=== PATIENT | female | born 2000 | race Two or more races ===

== ENCOUNTER → 2019-12-06 09:04 | Outpatient (BNVA) | payer BC, SELFPAY | PROVIDERS: PCP Physician Assistant; Referring Provider Physician Assistant; Visit Provider Obstetrics & Gynecology | DX: Z13.89 Encounter for screening for other disorder (principal) ==

== ENCOUNTER 2019-12-31 19:24 | Emergency (ER) | payer BC, SELFPAY ==
[2019-12-31 19:25] VITALS: BP 134/77; PULSE 95; RESP 16; TEMP 37.7; O2SAT 100; BMI 25.0
[2019-12-31 20:55] VITALS: BP 119/75; PULSE 86; RESP 18; TEMP 36.9; O2SAT 98
--- NOTE | 2019-12-31 20:59 | PC.NURSE ---
patient states that since falling a week ago she has had increased lt lower back and lt knee pain, she has tried otc medications without relief as well as a heating pad so she decided to come back to the ed to be seen.
--- NOTE | 2019-12-31 21:25 | ED_ITS ---
HPI - Back Pain/Injury General Chief Complaint: Back Pain/Injury Stated Complaint: Fall Time Seen by Provider: 12/31/19 21:01 Source: patient Mode of arrival: ambulatory Limitations: no limitations History of Present Illness HPI Narrative: Patient comes to emergency room complaining of left sided back pain in the lumbar region. Patient states about a week ago she fell down the stairs in the dark, mechanical fall. Patient states she has been able to walk, no urinary or fecal incontinence or retention. Patient states every time she moves her back, no midline tenderness. Related Data Previous Rx's Medication Instructions Recorded cyclobenzaprine 5 mg PO TID PRN #10 tab 12/31/19 Allergies Allergy/AdvReac Type Severity Reaction Status Date / Time aspirin [ASPIRIN] Allergy Unknown SWELLING, Unverified 12/06/19 09:05 anaphylaxis penicillin G Allergy Unknown Unknown Verified 12/06/19 09:05 Clindamycin Allergy Unknown Unknown Uncoded 12/06/19 09:05 SEAFOOD Allergy Unknown SWELLING Uncoded 12/06/19 09:05 Review of Systems Review of Systems: Constitutional : No Weight loss, No Fever, No Chills, No Night Sweats, No Fatigue, No Malaise ENT/Mouth : No Hearing loss, No Ear Pain, No Nasal Congestion, No Sinus Pain, No Hoarseness, No sore throat, No Rhinorrhea, No Swallowing Difficulty Eyes: No Eye Pain, No Swelling, No Redness, No Foreign Body, No Discharge, No Vision Changes Cardiovascular : No Chest Pain, No SOB, No Dyspnea on Exertion, No Orthopnea, No Edema, No Palpitations Respiratory : No Cough, No Sputum, No Wheezing, No Smoke Exposure, No Dyspnea Gastrointestinal : No Nausea, No Vomiting, No Diarrhea, No Constipation, No abdominal Pain, No Hematochezia, No Melena Genitourinary : no irregular bleeding, No Dysuria, No Urinary Frequency, No Hematuria, No Urinary Incontinence, No Urgency, No Flank Pain, No Urinary Flow Changes, No Hesitancy Musculoskeletal : No joint pain, No Myalgias, No Joint Swelling, complaining of back pain, lung by region and left side of the back. Skin : No Skin Lesions, No rash Neuro : No Weakness, No Numbness, No Paresthesias, No Loss of Consciousness, No Dizziness, No Headache Psych : No Anxiety/Panic, No Depression, No SI/HI/AH/VH, No Social Issues, Heme/Lymph: No Bruising, No Bleeding,No Lymphadenopathy Endocrine : No Polyuria, No Polydipsia, No Temperature Intolerance [facility] Past Medical History Medical History Migraine Family History Family History Mother Breast cancer Social History Social History Alcohol intake: never Smoking Status: Never smoker Use of substances other than those prescribed or required for medical reasons: No Advance Directives: No Advance Directives Information Provided: Yes Sexual orientation: Straight/Heterosexual Gender identity: female Physical Exam Vital Signs: Vital Signs: Last Vital Signs Temp 98.4 F 12/31/19 20:55 Pulse 86 12/31/19 20:55 Resp 18 12/31/19 20:55 BP 119/75 12/31/19 20:55 Pulse Ox 98 12/31/19 20:55 Body Mass Index 25.0 Appearance: Alert. Oriented X3. No acute distress. Eyes: Pupils equal, round and reactive to light. ENT: Pharynx normal. Neck: Normal inspection. Neck supple. No lymph nodes noted. No crepitus CVS: Normal heart rate and rhythm. Pulses normal. Normal S1 and S2 Respiratory: No respiratory distress. Breath sounds normal. No Wheezing. No rales Abdomen: Soft and nontender. No rigidity. No distention. good BS x4 Back: No spinal tenderness, pain to flexion and extension on the left side of the back, tender to palpation over the paraspinal muscles on the left side only Skin: Skin warm and dry. Normal skin color. Normal skin turgor. Extremities: No lower extremity edema. No lower extremity edema. No Lacerations. No Rash Neuro: Oriented X 3. No motor deficit. No sensory deficit. Moving all extermities. No slurred speech. Course Course Course Narrative: I discussed the imaging with the patient, no acute fracture, patient does have muscular contusion. Discharge Plan Discharge Clinical Impression: Lower back pain Qualifiers: Chronicity: acute Back pain laterality: left Sciatica presence: without sciatica Qualified Code(s): M54.5 - Low back pain Contusion Qualifiers: Encounter type: initial encounter Contusion area: lower back Qualified Code(s): S30.0XXA - Contusion of lower back and pelvis, initial encounter Patient Disposition: Home, Self-Care Instructions: Contusion in Adults (ED) Additional Instructions: Please follow-up with your primary care physician tomorrow. If you have any worsening or new symptoms, please return to the emergency room or call 911 Prescriptions: New cyclobenzaprine 5 mg tablet 5 mg PO TID PRN (Reason: muscle spasm) Qty: 10 RF: 0
--- NOTE | 2019-12-31 21:34 | XR_ITS ---
EXAMINATION: XR LUMBOSACRAL SPINE CLINICAL INFORMATION: Lumbar pain. Fall one week ago. COMPARISON: None TECHNIQUE: 2 views FINDINGS: The vertebral bodies and posterior elements are normal. The disc spaces are preserved and the vertebral alignment is normal. The paraspinal soft tissues are normal. XR/XR lumbar spine 2-3V IMPRESSION: Unremarkable examination.
[2019-12-31] MEDS: Morphine Sulfate 2 MG/ML CARTRIDGE IM (21:49)
--- NOTE | 2019-12-31 21:51 | PC.NURSE ---
patient medicated for low back and lt leg pain pt states her pain is now 10/10, pt states her father will be giving her a ride home, will continue to [facility].
== END 2019-12-31 23:37 | disposition home or self-care (01) ==
PROVIDERS: Emergency Provider Emergency Medicine; PCP Physician Assistant
DX: S30.0XXA Contusion of lower back and pelvis, initial encounter (principal); M54.5 Low back pain; W10.9XXA Fall (on) (from) unspecified stairs and steps, initial encounter; Y93.9 Activity, unspecified; Y92.9 Unspecified place or not applicable; Y99.9 Unspecified external cause status; Z79.899 Other long term (current) drug therapy
CPT/HCPCS: 72100; 96372; 99284; J2270

== ENCOUNTER 2020-01-11 07:42 | Outpatient (REF) | payer BC, SELFPAY ==
--- NOTE | 2020-01-11 | MR_ITS ---
EXAMINATION: MR BRAIN WITHOUT CONTRAST CLINICAL INFORMATION: Headaches. COMPARISON: None. TECHNIQUE: Multiplanar, multisequence imaging of the brain was performed without contrast. FINDINGS: No diffusion abnormalities are identified to suggest an acute or subacute infarct. The ventricles are normal in size. No mass effect or midline shift is seen. No brain parenchymal signal abnormality is noted. No extra-axial fluid collections are seen. The brainstem and cerebellum are normal. The gradient refocused acquisition demonstrates no pathologic magnetic susceptibility artifact to indicate underlying acute or chronic blood products. The craniovertebral junction, marrow signal, and midline structures are normal. The major intracranial flow voids at the level of the [place] are preserved. The dural venous sinus flow voids are maintained. The mastoid air cells and paranasal sinuses are well aerated. MR/MR head/brain wo con IMPRESSION: Normal MRI of the brain. No acute process.
== END 2020-01-11 07:43 | disposition home or self-care (01) ==
LOC: HO.MRI 07:42
PROVIDERS: Visit Provider Psychiatry & Neurology Neurology
DX: R51.9 Headache, unspecified (principal)
CPT/HCPCS: 70551

== ENCOUNTER → 2020-11-01 09:05 | Outpatient (BNVA) | payer OTHER, SELFPAY | PROVIDERS: PCP Physician Assistant; Visit Provider Obstetrics & Gynecology ==

== ENCOUNTER 2020-11-28 08:54 | Outpatient (REF) | payer OTHER, SELFPAY ==
[2020-11-28 16:24] LABS: CT PCR NOT DETECTED (Not Detect.); NG PCR NOT DETECTED (Not Detect.)
[2020-11-29 09:17] LABS: BV Int Neg Control Negative (Negative); BV Int Pos Control Positive (Positive)
== END 2020-11-28 08:55 | disposition home or self-care (01) ==
LOC: HO.LAB 08:54
PROVIDERS: PCP Physician Assistant; Visit Provider Obstetrics & Gynecology
DX: Z01.411 Encounter for gynecological examination (general) (routine) with abnormal findings (principal); B37.3 Candidiasis of vulva and vagina; Z80.3 Family history of malignant neoplasm of breast
CPT/HCPCS: 87480; 87491; 87510; 87591; 87660

== ENCOUNTER 2020-11-30 07:28 | Outpatient (REF) | payer OTHER, SELFPAY ==
--- NOTE | ~2020-11-30 | MM_ITS ---
EXAMINATION: MM SCREENING DIGITAL BREAST TOMOSYNTHESIS, BILATERAL CLINICAL INFORMATION: Screening. Asymptomatic. Family history breast cancer, mother, age 30. Patient age 20. The lifetime risk of breast cancer based on the Tyrer-Cuzick Model is 33%. COMPARISON: Mammography: 09/23/2019 (baseline) TECHNIQUE: Digital breast tomosynthesis is performed in both the craniocaudal and mediolateral oblique views along with computer-aided detection (CAD). Synthesized 2D images are generated from the tomosynthesis. FINDINGS: The breasts are heterogeneously dense, which may obscure small masses (ACR BI-RADS breast composition Category c). There are no significant masses, abnormal calcifications, or other abnormalities. Breast tissue composition borders on average fibroglandular. Parenchymal pattern is similar to prior exam. The axilla and skin contours are unremarkable. MM/MM tomosynthesis screening BI IMPRESSION: No mammographic evidence of malignancy. ASSESSMENT: BI-RADS 1: Negative RECOMMENDATION: Routine annual mammography screening. This patient's information was entered into a reminder system with a target due date for their next mammogram.
[2020-11-30 08:31] LABS: Hematocrit 40.9 % (37-47); Hemoglobin 13.9 g/dl (12.0-16.0); Mean Corpuscular Hemoglobin 30.5 pg (27.0-33.0); Mean Corpuscular Volume 89.7 fL (80-98); Mean Platelet Volume 9.5 fL (9.4-12.3); Platelet Count 321 X10*3/uL (160-400); Red Blood Count 4.56 X10*6/uL (4.20-5.50); Red Cell Distribution Width 12.4 % (11.0-16.0); White Blood Count 11.1 X10*3/uL (4.8-10.8)
[2020-11-30 09:12] LABS: Alanine Aminotransferase 11 U/L (0-31); Albumin Level 4.4 g/dL (3.5-5.0); Alkaline Phosphatase 51 U/L (39-117); Anion Gap 11 (12-20); Aspartate Amino Transferase 14 U/L (5-31); Bilirubin Total 0.9 mg/dL (0.0-1.0); Blood Urea Nitrogen 11 mg/dL (9-16); Calcium 9.5 mg/dL (8.4-10.2); Carbon Dioxide 29 mmol/L (22-29); Chloride 104 mmol/L (96-108); Estimated Glomerular Filt Rate > 60; Glucose Fasting 88 mg/dL (60-99); Iron 105 mcg/dL (30-160); Percent Iron Saturation 28 % (15-50); Potassium 4.6 mmol/L (3.3-5.1); Sodium 139 mmol/L (135-145); Total Iron Binding Capacity 374 mcg/dL (228-428); Total Protein 7.4 g/dL (6.5-8.0); Unsaturated Iron Binding 269 ug/dL
[2020-11-30 09:24] LABS: HBsAGNum1 0.18 S/CO (0.00-0.99); Hepatitis B Surface Antigen Negative (Negative)
[2020-11-30 09:47] LABS: HIV AB/AG Nonreactive (Nonreactive); ~HepC Num1 0.07 S/CO (0.00-0.79); ~Hepatitis C Antibody Nonreactive (Nonreactive)
[2020-12-01 08:59] LABS: Syphilis Screen Nonreactive (Nonreactive)
== END 2020-11-30 07:29 | disposition home or self-care (01) ==
LOC: HO.MAMMO 07:28
PROVIDERS: Absent Provider Obstetrics & Gynecology; PCP Physician Assistant; Visit Provider Physician Assistant
DX: Z12.31 Encounter for screening mammogram for malignant neoplasm of breast (principal); Z80.3 Family history of malignant neoplasm of breast; I10 Essential (primary) hypertension; N76.0 Acute vaginitis; B96.89 Other specified bacterial agents as the cause of diseases classified elsewhere; D50.9 Iron deficiency anemia, unspecified; G43.009 Migraine without aura, not intractable, without status migrainosus; Z13.1 Encounter for screening for diabetes mellitus; Z13.29 Encounter for screening for other suspected endocrine disorder
CPT/HCPCS: 36415; 77063; 77067; 80053; 83540; 84443; 85027; 86780; 86803; 87340; 87389

== ENCOUNTER → 2021-01-03 13:15 | Outpatient (BNVA) | payer OTHER, SELFPAY | PROVIDERS: PCP Physician Assistant; Visit Provider Obstetrics & Gynecology ==

== ENCOUNTER → 2021-01-08 10:57 | Outpatient (BNVA) | payer OTHER, SELFPAY | PROVIDERS: PCP Physician Assistant; Referring Provider Physician Assistant; Visit Provider Surgery ==

== ENCOUNTER → 2021-02-06 10:33 | Outpatient (BNVA) | payer OTHER, SELFPAY | PROVIDERS: PCP Physician Assistant; Visit Provider Obstetrics & Gynecology ==

== ENCOUNTER → 2021-04-17 12:34 | Outpatient (BNVA) | payer OTHER, SELFPAY | PROVIDERS: PCP Physician Assistant; Referring Provider Physician Assistant; Visit Provider Surgery ==

== ENCOUNTER 2021-04-22 10:50 | Emergency (ER) | payer OTHER, SELFPAY ==
[2021-04-22 10:53] VITALS: BP 109/73; PULSE 95; RESP 20; TEMP 36.6; O2SAT 98; BMI 24.7
[2021-04-22 11:25] VITALS: BP 122/77; PULSE 84; RESP 14; O2SAT 99
[2021-04-22] MEDS: Metoclopramide HCl 10 MG/2 ML VIAL IVPUSH (11:31)
[2021-04-22] MEDS: 0.9 % Sodium Chloride 1,000 ML 999 ML IV (11:31)
[2021-04-22] MEDS: diphenhydrAMINE HCL 50 MG/ML VIAL 25 MG IVPUSH (11:31)
[2021-04-22] MEDS: Butalb/Acetamin/Caff 50/325/40 TABLET 1 TAB PO (11:31)
[2021-04-22 11:38] LABS: MANUAL DIFF FLAG NO
[2021-04-22 11:39] LABS: Basophils Percent Auto 0.4 % (0-2); Eosinophils Absolute Auto 0.1 X10*3/uL (0.0-0.4); Eosinophils Percent Auto 0.7 % (0-4); Hematocrit 39.3 % (37.0-47.0); Hemoglobin 13.4 g/dl (12.0-16.0); Imm Gran Abs Auto 0.02 X10*3/uL (0.00-0.03); Imm Gran Pct Auto 0.3 % (0.0-0.4); Lymphocytes Percent Auto 15.4 % (20-40); Mean Corpuscular HGB Conc 34.1 g/dl (31.0-35.0); Mean Corpuscular Hemoglobin 30.3 pg (27.0-33.0); Mean Corpuscular Volume 88.9 fL (80.0-98.0); Mean Platelet Volume 9.4 fL (9.4-12.3); Monocytes Absolute Auto 0.5 X10*3/uL (0.1-1.2); Neutrophils Absolute Auto 5.1 x10*3/uL (2.0-8.3); Neutrophils Percent Auto 76.2 % (45-73); Platelet Count 256 X10*3/uL (160-400); Red Blood Count 4.42 X10*6/uL (4.20-5.50); Red Cell Distribution Width 12.4 % (11.0-16.0); White Blood Count 6.8 X10*3/uL (4.8-10.8)
--- NOTE | 2021-04-22 11:45 | ED_ITS ---
HPI - Nausea/Vomiting/Diarrhea General Chief complaint: Nausea/Vomiting/Diarrhea Stated complaint: vomiting Time Seen by Provider: 04/22/21 11:09 Source: patient Mode of arrival: ambulatory Limitations: no limitations History of Present Illness HPI Narrative: Patient is a 21-year-old female with a past medical history of migraine headaches. She presents emergency department for evaluation of headache that began last night. Described as all throughout her head and pounding consistent with typical headaches. She took Tylenol last night with some relief. She states that she awoke at 2 this morning with vomiting yellow bile like substance. States she has been vomiting every 45 minute since then. In additi on she is having some epigastric discomfort. She did begin her menses last night, had no concerns of possible , current menstrual bleeding is consistent with typical cycle. Had a low-grade fever 2 days ago after receiving her COVID-19 booster vaccination; [employer] but has had no further fevers since then. Denies any lower abdominal pain, constipation, diarrhea, dysuria, urinary frequency/urgency/hesitancy, prior abnormal vaginal discharge. MD elicited complaint: nausea and vomiting Onset (ago): hour(s) Description of vomiting: bilious Associated nausea: Yes Associated abdominal pain: Yes Location of pain: epigastric Quality: cramping Related Data Home Medications Medication Instructions Recorded Confirmed norgestimate 0.18 mg/0.215 mg/0.25 1 tab PO DAILY 11/28/20 04/17/21 mg-ethinyl estradiol 25 mcg tablet (Tri-Lo-Gaby) Previous Rx's Medication Instructions Recorded ondansetron HCl 4 mg tablet 4 mg PO Q8H PRN #7 tab 04/22/21 Allergies Allergy/AdvReac Type Severity Reaction Status Date / Time aspirin [ASPIRIN] Allergy Unknown SWELLING, Verified 04/22/21 10:59 anaphylaxis penicillin G Allergy Unknown Unknown Verified 04/22/21 10:59 Clindamycin Allergy Unknown Unknown Uncoded 04/22/21 10:59 SEAFOOD Allergy Unknown SWELLING Uncoded 04/22/21 10:59 Review of Systems Review of Systems: Constitutional : No Weight loss, No Fever, No Chills ENT/Mouth :? No sore throat, No Rhinorrhea Eyes: No Swelling, No Redness Cardiovascular : No Chest Pain, No SOB, No Edema Respiratory : No Cough, No Sputum, No Wheezing Gastrointestinal : Positive Nausea, Positive Vomiting, no Diarrhea, positive abdominal pain, No Hematochezia, No Melena Genitourinary : No Dysuria, No Urinary Frequency, No Hematuria, No Urgency? Musculoskeletal : No joint pain, No Myalgias, No Joint Swelling Skin : No Skin Lesions, No rash Neuro : + headahce. No Weakness, No Numbness, No Dizziness Psych : No Anxiety/Panic, No Depression Heme/Lymph: No Bruising, No Lymphadenopathy Endocrine : No Polyuria, No Polydipsia All other systems reviewed and are negative. Gastrointestinal: Gastrointestinal: Reports nausea PMFSH Past Medical History Attestation statement: The following information was validated with the patient. Source: old records reviewed Medical History Migraine Migraine with aura Family History Family History Mother Breast cancer Father CAD (coronary artery disease), Onset Age: 36 Social History Social History Housing: House Alcohol intake: never Patient Tobacco Use Status: Never used Tobacco e-Cigarette/Vaping Use: Never Used Second Hand Smoke Exposure: No Advance Directives: No Advance Directives Information Provided: No Patient : No Current occupational status: employed Current occupation: [employer] Sexual orientation: Straight/Heterosexual Gender identity: Female Physical Exam Vital Signs: Vital Signs: Last Vital Signs Temp 98.5 F 04/22/21 15:01 Pulse 93 04/22/21 15:01 Resp 16 04/22/21 15:01 BP 112/67 04/22/21 15:01 Pulse Ox 100 04/22/21 15:01 BMI result Body Mass Index 24.7 Vital signs have been reviewed as normal and appeared to be correct. Blood pressure normal.? Heart rate normal.? Respiration rate normal. Temperature hossein l.? Oxygen saturation normal. Appearance: Alert.?Oriented to person, place and time. No acute distress.?Normal affect. Head: Normocephalic, atraumatic. No head, sinus or TMJ tenderness.? Eyes: Sclera white, conjunctiva pink. PERRL, 3 mm bilaterally. Visual gee full to confrontation, EOMi.?No Nystagmus. ENT: Pharynx normal.?? Neck: Normal inspection.? Neck supple.?? CVS: Heart sounds normal. Normal heart rate and rhythm.? Pulses normal.?? Respiratory: No respiratory distress.? Lung sounds clear to auscultation bilater ally?? Abdomen: Soft with tenderness over epigastrium. Normoactive bowel sounds. No pulsatile mass.?? Skin: Skin warm and dry.? Normal skin color.? Normal skin turgor.?? Extremities: No lower extremity edema.? ? Neuro: Moves all extremities spontaneously. Sensation intact bilaterally. CN II- XII intact. No focal neuro deficits. Ambulates with normal steady gait. Course Course Course Narrative: Patient is a 21-year-old female being evaluated for headache and vomiting. History and physical exam not consistent with ICH, SAH, meningitis, giant cell arteritis, no red flag symptoms, not immunocompromised, no focal neurological deficits. Will obtain CBC to evaluate for leukocytosis, CMP and lipase to evaluate for abnormal electrolytes /abnormal renal function/ abnormal hepatic/biliary function. Urinalysis to evaluate for infection. Disposition will be pending results. At this time I suspect that her vomiting is secondary to migraine headache, she has an anaphylactic reaction to aspirin will avoid NSAIDs, will receive 1 L IV fluid, Reglan IV Benadryl IV, and Fioricet. Reevaluation(s) Reevaluation #1: CBC is overall unremarkable, CMP is unremarkable. Patient reports improvement in her nausea and headache at this time. Given water, gingerale, crackers. Still awaiting urine sample at this time. Time: 13:30 Reevaluation #2: Urinalysis is overall unremarkable, presence of blood but she is currently menstruating. Patient tolerating oral intake well. Discussed findings with patient. At this time will discharge home with continued use of Tylenol or a prescribed Fioricet for migraine headache, and given short course of Zofran for nausea. Instructed to contact her primary care provider for outpatient follow- up, she may want to consider migraine prevention medication given a report of at least 10 migraines monthly. Discussed reasons to return to the emergency department. She is agreeable with plan of care Time: 14:18 MDM - Nausea/Vomiting/Diarrhea Medical Records Attestation: I reviewed the patient's medical records. Lab Data Attestation: I reviewed the patient's lab results. Result diagrams: 04/22/21 11:29 04/22/21 11:29 Labs: Lab Results 04/22/21 04/22/21 04/22/21 Range/Units 11:29 11:29 13:56 WBC 6.8 (4.8-10.8) X10*3/uL RBC 4.42 (4.20-5.50) X10*6/uL Hgb 13.4 (12.0-16.0) g/dl Hct 39.3 (37.0-47.0) % MCV 88.9 (80.0-98.0) fL MCH 30.3 (27.0-33.0) pg MCHC 34.1 (31.0-35.0) g/dl RDW 12.4 (11.0-16.0) % Plt Count 256 (160-400) X10*3/uL MPV 9.4 (9.4-12.3) fL Immature Gran % (Auto) 0.3 (0.0-0.4) % Neut % (Auto) 76.2 H (45-73) % Lymph % (Auto) 15.4 L (20-40) % Carver % (Auto) 7.0 (2-11) % Eos % (Auto) 0.7 (0-4) % Baso % (Auto) 0.4 (0-2) % Lymph # (Auto) 1.0 L (1.2-4.9) X10*3/uL Carver # (Auto) 0.5 (0.1-1.2) X10*3/uL Eos # (Auto) 0.1 (0.0-0.4) X10*3/uL Baso # (Auto) 0.0 (0.0-0.2) X10*3/uL Abs Immat Gran (auto) 0.02 (0.00-0.03) X10*3/uL Absolute Neuts (auto) 5.1 (2.0-8.3) x10*3/uL Absolute Nucleated RBC 0.000 (0.0-0.012) X10*3/uL Nucleated RBC % (auto) 0.0 (0.0-0.2) /100WBC Sodium 138 (135-145) mmol/L Potassium 4.1 (3.3-5.1) mmol/L Chloride 106 (96-108) mmol/L Carbon Dioxide 25 (22-29) mmol/L Anion Gap 11 L (12-20) BUN 11 (9-16) mg/dL Creatinine 1.00 (0.5-1.4) mg/dL Estim Creat Clear Calc 78.3 Estimated GFR > 60 Random Glucose 90 (60-115) mg/dL Calcium 9.6 (8.4-10.2) mg/dL Total Bilirubin 0.9 (0.0-1.0) mg/dL AST 19 (5-31) U/L ALT 17 (0-31) U/L Alkaline Phosphatase 52 (39-117) U/L Total Protein 7.1 (6.5-8.0) g/dL Albumin 4.2 (3.5-5.0) g/dL Lipase 18 (8-78) U/L Urine Color YELLOW Urine Appearance CLEAR Urine pH 6.0 (5.0-8.0) Ur Specific [place] >= 1.030 H (1.005-1.025) Urine Protein TRACE (NEG-TRACE) MG/DL Urine Glucose (UA) NEG (NEG) MG/DL Urine Ketones 40 (NEG) MG/DL Urine Blood 2+ H (NEG) Urine Nitrite NEG (NEG) Ur Leukocyte Esterase NEG (NEG) Urine RBC 5-9 H (0) /HPF Urine WBC 0 (0-4) /HPF Ur Squamous Epith Cells 1+ /LPF Urine Bacteria NONE /LPF Urine Mucus 1+ /LPF Urine Test (NEGATIVE) 04/22/21 Range/Units 13:56 WBC (4.8-10.8) X10*3/uL RBC (4.20-5.50) X10*6/uL Hgb (12.0-16.0) g/dl Hct (37.0-47.0) % MCV (80.0-98.0) fL MCH (27.0-33.0) pg MCHC (31.0-35.0) g/dl RDW (11.0-16.0) % Plt Count (160-400) X10*3/uL MPV (9.4-12.3) fL Immature Gran % (Auto) (0.0-0.4) % Neut % (Auto) (45-73) % Lymph % (Auto) (20-40) % Carver % (Auto) (2-11) % Eos % (Auto) (0-4) % Baso % (Auto) (0-2) % Lymph # (Auto) (1.2-4.9) X10*3/uL Carver # (Auto) (0.1-1.2) X10*3/uL Eos # (Auto) (0.0-0.4) X10*3/uL Baso # (Auto) (0.0-0.2) X10*3/uL Abs Immat Gran (auto) (0.00-0.03) X10*3/uL Absolute Neuts (auto) (2.0-8.3) x10*3/uL Absolute Nucleated RBC (0.0-0.012) X10*3/uL Nucleated RBC % (auto) (0.0-0.2) /100WBC Sodium (135-145) mmol/L Potassium (3.3-5.1) mmol/L Chloride (96-108) mmol/L Carbon Dioxide (22-29) mmol/L Anion Gap (12-20) BUN (9-16) mg/dL Creatinine (0.5-1.4) mg/dL Estim Creat Clear Calc Estimated GFR Random Glucose (60-115) mg/dL Calcium (8.4-10.2) mg/dL Total Bilirubin (0.0-1.0) mg/dL AST (5-31) U/L ALT (0-31) U/L Alkaline Phosphatase (39-117) U/L Total Protein (6.5-8.0) g/dL Albumin (3.5-5.0) g/dL Lipase (8-78) U/L Urine Color Urine Appearance Urine pH (5.0-8.0) Ur Specific [place] (1.005-1.025) Urine Protein (NEG-TRACE) MG/DL Urine Glucose (UA) (NEG) MG/DL Urine Ketones (NEG) MG/DL Urine Blood (NEG) Urine Nitrite (NEG) Ur Leukocyte Esterase (NEG) Urine RBC (0) /HPF Urine WBC (0-4) /HPF Ur Squamous Epith Cells /LPF Urine Bacteria /LPF Urine Mucus /LPF Urine Test NEGATIVE (NEGATIVE) Discharge Plan Discharge Clinical Impression: Headache, migraine Patient Disposition: Home, Self-Care Instructions: Migraine Headache (ED) Additional Instructions: Please continue taking Tylenol as needed for your migraine headaches. Please try to stay well hydrated. Should you continue to experience and increased frequency of migraine headaches he should follow-up with your primary care provider to discuss appropriate management. You may return to emergency department with any new worsening symptoms or concerns. Prescriptions: New ondansetron HCl 4 mg tablet 4 mg PO Q8H PRN (Reason: nausea and vomiting) Qty: 7 0RF No Action norgestimate-ethinyl estradiol [Tri-Lo-Gaby] 0.18/0.215/0.25 mg-25 mcg tablet 1 tab PO DAILY 0RF Stand Alone Forms: Work/School Release Interventions: ED Discharge Assessment Last Done: 04/22/21 15:11 Discharge Date/Time: 04/22/21 15:12
[2021-04-22 12:04] LABS: Alanine Aminotransferase 17 U/L (0-31); Albumin Level 4.2 g/dL (3.5-5.0); Alkaline Phosphatase 52 U/L (39-117); Anion Gap 11 (12-20); Aspartate Amino Transferase 19 U/L (5-31); Bilirubin Total 0.9 mg/dL (0.0-1.0); Blood Urea Nitrogen 11 mg/dL (9-16); Calcium 9.6 mg/dL (8.4-10.2); Carbon Dioxide 25 mmol/L (22-29); Chloride 106 mmol/L (96-108); Creatinine Clr Calc Pharmacy 78.3; Estimated Glomerular Filt Rate > 60; Glucose Random 90 mg/dL (60-115); Lipase 18 U/L (8-78); Potassium 4.1 mmol/L (3.3-5.1); Sodium 138 mmol/L (135-145); Total Protein 7.1 g/dL (6.5-8.0)
[2021-04-22 12:37] VITALS: BP 112/65; PULSE 92; RESP 12; O2SAT 100
[2021-04-22 14:04] LABS: Appearance Urine CLEAR; Color Urine YELLOW; Glucose Urine UA NEG (NEG); Leukocyte Esterase Urine NEG (NEG); Nitrite Urine NEG (NEG); Specific Gravity - Urine >= 1.030 (1.005-1.025); UACC Culture Trigger NO; Urine Blood 2+ (NEG); Urine Ketones 40 MG/DL (NEG); Urine Protein TRACE MG/DL (NEG-TRACE)
[2021-04-22 14:06] LABS: UPreg QC Valid YES; Urine Pregnancy NEGATIVE (NEGATIVE)
[2021-04-22 14:14] LABS: Mucus Urine 1+ /LPF; Squamous Epithelial Cell Urine 1+ /LPF; WBC Urine 0 /HPF (0-4)
[2021-04-22 15:01] VITALS: BP 112/67; PULSE 93; RESP 16; TEMP 36.9; O2SAT 100
== END 2021-04-22 15:12 | disposition home or self-care (01) ==
PROVIDERS: Nurse Practitioner Family; Emergency Provider Emergency Medicine; PCP Physician Assistant
DX: G43.909 Migraine, unspecified, not intractable, without status migrainosus (principal); R11.2 Nausea with vomiting, unspecified; Z79.899 Other long term (current) drug therapy
CPT/HCPCS: 36415; 80053; 81001; 81003; 81025; 83690; 85025; 96374; 96376; 99284; J1200; J2765

== ENCOUNTER 2021-05-31 09:59 | Emergency (ER) | payer OTHER, SELFPAY ==
[2021-05-31 10:31] VITALS: BP 123/77; PULSE 126; RESP 18; TEMP 37.4; O2SAT 99; BMI 25.7
[2021-05-31 10:58] LABS: COVID-19 Test Negative (Negative)
[2021-05-31 11:02] LABS: Influenza A Positive (Negative); Influenza B2 Negative (Negative)
--- NOTE | 2021-05-31 11:21 | ED.URI ---
HPI - URI/Sore Throat General Chief Complaint: Fever Stated Complaint: Fever , Sore Throat Time Seen by Provider: 05/31/21 11:21 Source: patient Mode of arrival: ambulatory Limitations: no limitations History of Present Illness HPI Narrative: 21-year-old female with history of mild intermittent asthma presents to the ER for 5-6 days of dry cough, head congestion, intermittent fevers up to 102 and cold symptoms. She states she ?feels like he got hit by a truck. She has been taking DayQuil and NyQuil with minimal improvement in her symptoms. She has been using albuterol inhaler for cough and some reported wheezing. She denies any difficulty breathing, shortness of breath or chest pain. She states all of her muscles hurt and she has a headache. She states all of her coworkers are also 2nd her bosses and making of 1 come into work. MD elicited complaint: fever, cough and rhinorrhea Onset (ago): day(s) (6) Consistency: constant Severity: moderate Description of mucous: clear and watery Able to tolerate fluids by mouth: Yes Exacerbating factors: changing head position Relieving factors: OTC cold medicine Context: sick contacts Associated symptoms: fever, chills, myalgias, headache, rhinorrhea, nasal congestion, sore throat and cough Treatments prior to arrival: cold medicine Related Data Home Medications Medication Instructions Recorded Confirmed norgestimate 0.18 mg/0.215 mg/0.25 1 tab PO DAILY 11/28/20 04/17/21 mg-ethinyl estradiol 25 mcg tablet (Tri-Lo-Gaby) Previous Rx's Medication Instructions Recorded ondansetron HCl 4 mg tablet 4 mg PO Q8H PRN #7 tab 04/22/21 azithromycin 250 mg tablet See Rx Instructions .ROUTE 05/31/21 (Zithromax Z-Darrel) .COMPLEX #6 tab prednisone 20 mg tablet 40 mg PO DAILY #10 tab 05/31/21 Allergies Allergy/AdvReac Type Severity Reaction Status Date / Time aspirin [ASPIRIN] Allergy Unknown SWELLING, Verified 04/22/21 10:59 anaphylaxis penicillin G Allergy Unknown Unknown Verified 04/22/21 10:59 Clindamycin Allergy Unknown Unknown Uncoded 04/22/21 10:59 SEAFOOD Allergy Unknown SWELLING Uncoded 04/22/21 10:59 Review of Systems Review of Systems: Constitutional: + Fever, + Chills ENT/Mouth: + sore throat, + Rhinorrhea, No Swallowing Difficulty Cardiovascular: No Chest Pain, No SOB, No Orthopnea, No Edema Respiratory: + Cough, No Sputum, + Wheezing, No dyspnea Gastrointestinal: No Nausea, No Vomiting, No Diarrhea, No abdominal Pain, No Hematochezia, No Melena Genitourinary: No Dysuria, No Urinary Frequency, No Hematuria Musculoskeletal: No joint pain, + Myalgias Skin: No Skin Lesions, No rash Neuro: No Weakness, No Numbness, No Dizziness, + Headache Psych: No Anxiety/Panic, No Depression Heme/Lymph: No Bruising, No Lymphadenopathy Endocrine: No Polyuria, No Polydipsia PMFSH Past Medical History Medical History Migraine Migraine with aura Family History Family History Mother Breast cancer Father CAD (coronary artery disease), Onset Age: 36 Social History Social History Housing: House Alcohol intake: never Patient Tobacco Use Status: Never used Tobacco e-Cigarette/Vaping Use: Never Used Second Hand Smoke Exposure: No Advance Directives: No Advance Directives Information Provided: Yes Patient : No Current occupational status: employed Current occupation: [employer] Sexual orientation: Straight/Heterosexual Gender identity: Female Physical Exam Vital Signs: Vital Signs: Last Vital Signs Temp 99.4 F 05/31/21 10:31 Pulse 126 H 05/31/21 10:31 Resp 18 05/31/21 10:31 BP 123/77 05/31/21 10:31 Pulse Ox 99 05/31/21 10:31 BMI result Body Mass Index 25.7 Appearance: Alert. Oriented X3. No acute distress. Eyes: Pupils equal, round and reactive to light. ENT: Pharynx normal. Neck: Normal inspection. Neck supple. CVS: Tachycardic, regular rhythm Pulses normal. Respiratory: No respiratory distress. Breath sounds with end expiratory wheeze in the right lower lobe only, no rhonchi. Skin: Skin warm and dry. Normal skin color. Normal skin turgor. No rashes. Extremities: Normal inspection, normal range of motion x4 Neuro: Oriented X 3. Grossly normal, nonfocal Course Course Course Narrative: 21-year-old female with history of mild intermittent asthma presents to the ER with fiber 6 days of URI symptoms including fever, cough, body aches, headaches, nasal congestion and postnasal drip. Her boss has been forcing her to work and she still feels ill after 6 days so she came to the ER for further evaluation. On exam she has a slight end-expiratory wheeze in the right lower lobe, no rhonchi or difficulty breathing. SpO2 99% on room air. She is tachycardic to the 120s but otherwise appears well, nontoxic. Her influenza A swab is positive. Given her expiratory wheeze in the right lower lobe will prescribe five-day course of prednisone and Z-Darrel. Work note provided per request. Stable for discharge home with supportive care and outpatient follow-up as needed. MDM - URI/Sore Throat Lab Data Labs: Lab Results 05/31/21 05/31/21 Range/Units 10:37 10:37 COVID-19 (KRISTEN) Negative (Negative) COVID-19 Clin Com See Note Influenza Type A (DIONTE) Positive A (Negative) Influenza Type B (DIONTE) Negative (Negative) Influenza A & B Note See Note Critical Care Time Critical Care Time Critical Care Time: No Discharge Plan Discharge Clinical Impression: Influenza A Patient Disposition: Home, Self-Care Instructions: Influenza (DC) Additional Instructions: You tested positive for influenza A. Treatment is supportive care, get plenty of rest, drink plenty of fluids and take [id number] cold and flu medications as needed for your symptoms. Take the prescribed steroids for her lungs as well as the prescribed antibiotic to help with any inflammation that may be in your lungs. Recommend Motrin 600 mg every 6-8 hours as needed for headaches. Use urine albuterol inhaler as needed for shortness of breath or wheezing. Follow up with her primary care doctor as needed. If you develop new or worsening symptoms call 911 or come back to the ER for further evaluation. Prescriptions: New prednisone 20 mg tablet 40 mg PO DAILY Qty: 10 0RF azithromycin [Zithromax Z-Darrel] 250 mg tablet See Rx Instructions .ROUTE .COMPLEX Qty: 6 0RF Rx Instructions: take 500 mg today (day 1), then 250 mg for 4 days (days 2-5) No Action ondansetron HCl 4 mg tablet 4 mg PO Q8H PRN (Reason: nausea and vomiting) Qty: 7 0RF norgestimate-ethinyl estradiol [Tri-Lo-Gaby] 0.18/0.215/0.25 mg-25 mcg tablet 1 tab PO DAILY 0RF Stand Alone Forms: Work/School Release Interventions: ED Discharge Assessment Last Done: 05/31/21 11:38 Discharge Date/Time: 05/31/21 11:42
== END 2021-05-31 11:42 | disposition home or self-care (01) ==
PROVIDERS: Emergency Provider Emergency Medicine; PCP Physician Assistant
DX: J10.1 Influenza due to other identified influenza virus with other respiratory manifestations (principal); R50.9 Fever, unspecified; M79.10 Myalgia, unspecified site; R05.9 Cough, unspecified; Z20.822 Contact with and (suspected) exposure to COVID-19
CPT/HCPCS: 87502; 87635; 99282; 99283

== ENCOUNTER 2021-07-05 12:27 | Outpatient (REF) | payer OTHER, SELFPAY ==
[2021-07-05 16:28] LABS: CT PCR NOT DETECTED (Not Detect.); NG PCR NOT DETECTED (Not Detect.)
[2021-07-06 12:52] LABS: BV Int Neg Control Negative (Negative); BV Int Pos Control Positive (Positive)
== END 2021-07-05 12:28 | disposition home or self-care (01) ==
LOC: HO.LAB 12:27
PROVIDERS: PCP Physician Assistant; Visit Provider Obstetrics & Gynecology
DX: N76.0 Acute vaginitis (principal); N92.0 Excessive and frequent menstruation with regular cycle; B96.89 Other specified bacterial agents as the cause of diseases classified elsewhere
CPT/HCPCS: 87480; 87491; 87510; 87591; 87660

== ENCOUNTER 2022-02-26 08:52 | Outpatient (REF) | payer OTHER, SELFPAY | END 2022-02-26 08:53 | disposition home or self-care (01) | LOC: HO.LNP 08:52 | PROVIDERS: PCP Physician Assistant; Visit Provider Obstetrics & Gynecology | DX: Z01.419 Encounter for gynecological examination (general) (routine) without abnormal findings (principal) | CPT/HCPCS: 88142 ==

== ENCOUNTER 2022-02-26 09:38 | Outpatient (REF) | payer OTHER, SELFPAY ==
[2022-02-26 14:21] LABS: CT PCR NOT DETECTED (Not Detect.); NG PCR NOT DETECTED (Not Detect.)
== END 2022-02-26 09:39 | disposition home or self-care (01) ==
LOC: HO.LAB 09:38
PROVIDERS: Visit Provider Obstetrics & Gynecology
DX: Z11.3 Encounter for screening for infections with a predominantly sexual mode of transmission (principal)
CPT/HCPCS: 0353U

== ENCOUNTER 2022-10-23 16:04 | Outpatient (REF) | payer OTHER, SELFPAY ==
[2022-10-23 18:00] LABS: Appearance Urine Cloudy; Color Urine Yellow; Glucose Urine UA Negative (Negative); Leukocyte Esterase Urine Large (3+) (Negative); Nitrite Urine Negative (Negative); Specific Gravity - Urine <= 1.005 (1.005-1.025); UMIC TRIGGER UACC YES; Urine Blood Large (3+) (Negative); Urine Ketones Negative (Negative); Urine Protein 30 (1+) mg/dL (Neg-Trace)
[2022-10-23 18:19] LABS: Bacteria Urine Trace (None Seen); Squamous Epithelial Cell Urine 0-2 /HPF (0-2); UACC Culture Trigger YES; WBC Urine >50 /HPF (0-5)
== END 2022-10-23 16:05 | disposition home or self-care (01) ==
LOC: HO.LAB 16:04
PROVIDERS: PCP Physician Assistant; Visit Provider Obstetrics & Gynecology
DX: N39.0 Urinary tract infection, site not specified (principal)
CPT/HCPCS: 81001; 87086

== ENCOUNTER 2022-11-04 07:40 | Outpatient (AMB) | payer OTHER, SELFPAY ==
--- NOTE | 2022-11-04 07:55 | MHC.OFFVIS ---
Intake Vital Signs 11/04/22 08:06 Height 5 ft 3 in Weight 141 lb 1.533 oz BMI 25.0 Intake Visit Reasons: urine dip Waterproof Material Folder Required: No Information Interpreted: non-clinical & clinical Accompanied by: Self / Same As Patient Allergies aspirin [ASPIRIN] Allergy (Unknown, Verified 11/04/22 08:07) SWELLING, anaphylaxis penicillin G Allergy (Unknown, Verified 11/04/22 08:07) Unknown Clindamycin Allergy (Unknown, Uncoded 11/04/22 08:07) Unknown SEAFOOD Allergy (Unknown, Uncoded 11/04/22 08:07) SWELLING Is last menstrual period known: Yes Last menstrual period: 10/08/22 HPI HPI Comments History of Present Illness Details Presenting for repeat urine dip. Urinalysis on was positive for blood, urine culture was negative, the patient was given nitrofurantoin 100 mg p.o. b.i.d. for 5 days. The patient is doing well with no complaints. [facility] Medical History Migraine with aura Migraine Family History Mother Breast cancer Father CAD (coronary artery disease), Onset Age: 36 Social History Housing: House Alcohol intake: never Patient Tobacco Use Status: Never used Tobacco e-Cigarette/Vaping Use: Never Used Second Hand Smoke Exposure: No Current occupational status: employed Current occupation: [employer] Sexual orientation: Straight/Heterosexual Gender identity: Female Female Reproductive History Menstrual Age of Menarche: 9 Date of last menstrual period: 10/08/22 Review of Systems Const All systems reviewed & are unremarkable except as noted in HPI and below Reports as per HPI and Reports no additional complaints GI Reports no additional complaints Reports no additional complaints Physical Exam Vital Signs: BMI result Body Mass Index 25.0 Assessment & Plan Assessment & Plan (1) Microscopic hematuria: Code(s): R31.29 - Other microscopic hematuria Plan: Urine dip repeated was negative for microscopic hematuria. Discussed with the patient the results of urine dip, showing resolution of her microscopic hematuria. The patient was reassured. All questions answered, the patient verbalized understanding. Coding Level of Care Code Est Pt Level 3 (79354) Diagnoses Microscopic hematuria R31.29
[2022-11-04 08:06] VITALS: BMI 25.0
== END 2022-11-04 08:26 | disposition home or self-care (01) ==
PROVIDERS: PCP Physician Assistant; Visit Provider Obstetrics & Gynecology
DX: R31.29 Other microscopic hematuria (principal)
CPT/HCPCS: 99213

== ENCOUNTER → 2022-11-04 07:40 | Outpatient (BNVA) | payer OTHER, SELFPAY | PROVIDERS: PCP Physician Assistant; Visit Provider Obstetrics & Gynecology | DX: R31.29 Other microscopic hematuria (principal) | CPT/HCPCS: 81002; 99212 ==

== ENCOUNTER 2022-12-19 09:25 | Outpatient (AMB) | payer OTHER, SELFPAY ==
--- NOTE | 2022-12-19 09:30 | A.OFFPC_ITS ---
Vital Signs 12/19/22 09:31 Height 5 ft 3 in Weight 146 lb 2 oz BMI 25.9 BP 128/88 Blood Pressure Location Lt brachial Position Sitting Pulse 87 Pulse Source Pulse Oximeter Pulse Oximetry (%) 99 Oxygen Delivery Method Room Air Intake Visit Reasons: Anual visit/Physical Intake Note: Patient is here today for a physical. Cdl Service Technician Required: No Accompanied by: Self / Same As Patient Allergies aspirin [ASPIRIN] Allergy (Unknown, Verified 12/19/22 09:57) SWELLING, anaphylaxis penicillin G Allergy (Unknown, Verified 12/19/22 09:57) Unknown Clindamycin Allergy (Unknown, Uncoded 12/19/22 09:40) Unknown SEAFOOD Allergy (Unknown, Uncoded 12/19/22 09:40) SWELLING Medication List - Last Reconciled 12/19/22 by Abraham iLon PA-C copper (ParaGard T 380A) intrauterine Tobacco use date assessed: 12/19/22 Dental Screening Dental Screen Date: 12/19/22 HPI Anual visit/Physical HPI Details Patient is a 22-year-old female here today for annual physical. ?.. ?Patient has a past medical history significant for asthma, migraine headaches, generalized anxiety disorder ?Generalized anxiety disorder: Her anxiety has been worse as of late due to stress related to personal issues and her job. She has been using marijuana and intermittent basis for her anxiety which is helpful. She is not interested in dieting medication or seeing a mental health therapist at this time. ?.. ?Asthma: Asthma has been fairly well controlled. Not having to use her albuterol inhaler much ?.. ? COAL WASHER: Has seen obstetrics gyn and gotten Pap smear. ?VAccine:, up-to-date with tetanus vaccine, pneumonia vaccine. 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 1. Little interest or pleasure in doing things: not at all 2. Feeling down, depressed, or hopeless: not at all 3. Trouble falling or staying asleep, or sleeping too much: not at all 4. Feeling tired or having little energy: not at all 5. Poor appetite or overeating: not at all 6. Feeling bad about yourself - or that you are a failure or have let yourself or your family down: not at all 7. Trouble concentrating on things, such as reading the newspaper or watching television: not at all 8. Moving or speaking so slowly that other people could have noticed. Or the opposite - being so fidgety or restless that you have been moving around a lot more than usual: not at all 9. Thoughts that you would be better off or of hurting yourself in some way: not at all Total score: 0 Depression Screening Interpretation: Negative Depression Screening Done: Yes 95570 - PHQ-9 Billing: Yes Source: Developed by Drs. Yehuda Ramirez, Laura Copeland, Jus Deluna and colleagues, with an educational cale from [employer]. Thrive Questionnaire Date Thrive assessed: 12/19/22 I am a: Patient What is your living situation today?: I have a steady place to live Within the past 12 months, did the food you bought not last and you didn't have the money to get more?: Never true Within the past 12 months, did you worry whether your food would run out before you got money to buy more?: Never true Do you have trouble paying for medicines?: No Do you have trouble getting transportation to medical appointments?: No Do you have trouble paying your heating and electricity bill?: No Do you have trouble taking care of your child, family member or friend?: No Do you have trouble with day-to-day activities such as bathing, preparing meals, shopping, managing finances, etc.?: No Are you currently unemployed and looking for a job?: No Are you interested in more education?: No Please select the resources that you would like help with: None Currently or been in a relationship where the following occur: no concerns reported and I choose not to answer this question AUDIT C Alcohol Use Questionnaire (AUDIT-C) 1. How often do you have a drink containing alcohol?: Never 3. How often do you have six or more drinks on one occasion?: Never Total Score: 0 MAMADOU-7 AMB Questionnaire MAMADOU-7 Date MAMADOU - 7 assessed: 12/19/22 Feeling nervous, anxious, or on edge: 3 = Nearly every day Not being able to stop or control worryin = More than half the days Worrying too much about different things: 2 = More than half the days Trouble relaxin = Nearly every day Being so restless that it is hard to sit still: 2 = More than half the days Becoming easily annoyed or irritable: 3 = Nearly every day Feeling afraid as if something awful might happen: 2 = More than half the days Total MAMADOU-7 score (0-4 normal; 5-9 mild; 10-14 moderate; 15-21 severe): 17 Source: Developed by Drs. Yehuda Ramirez, Laura Copeland, Jus Deluna and colleagues, with an educational cale from [employer]. MAMADOU-7 Assessment Billing MAMADOU-7 Assessment Tool: MAMADOU-7 Assessment 80441 Review of Systems Const Denies body aches, Denies chills, Denies excessive sweating, Denies fatigue, Denies fever(s) and Denies headache(s) Eyes Denies blurry vision ENT Denies dysphagia, Denies vertigo, Denies dizziness, Denies headache(s), Denies hearing loss and Denies tinnitus Card Denies chest pain, Denies chest pain with activity, Denies syncope, Denies irregular heart rhythm and Denies dyspnea Resp Denies chest congestion, Denies cough, Denies hemoptysis, Denies dyspnea and Denies wheezing GI Denies abdominal pain, Denies melena, Denies hematochezia, Denies coffee ground emesis, Denies dysphagia, Denies diarrhea, Denies nausea and Denies vomiting Denies urinary frequency, Denies dysuria, Denies urinary hesitancy and Denies urinary urgency Musc Denies arthralgias, Denies limited range of motion, Denies muscle cramps and Denies muscle weakness Skin/Breast Denies rash and Denies skin ulcer Neuro Denies Abnormal speech present, Denies confusion, Denies vertigo, Denies dizziness, Denies syncope, Denies headache(s), Denies memory loss and Denies seizure-like activity Psych Denies anxiety, Denies confusion, Denies depression, Denies memory loss, Denies panic attacks and Denies paranoia Endo Denies excessive sweating, Denies fatigue, Denies flushing, Denies polydipsia and Denies polyuria Aller/Immun Denies wheezing Physical exam (Primary Care) Vital Signs: Last Vital Signs Pulse 87 12/19/22 09:31 BP 128/88 12/19/22 09:31 Pulse Ox 99 12/19/22 09:31 Oxygen Delivery Method Room Air 12/19/22 09:31 BMI result Body Mass Index 25.9 Tobacco/Smoking Status: Tobacco use Status Tobacco use date assessed 12/19/22 12/19/22 09:42 Patient Tobacco Use Status Never used Tobacco 12/19/22 10:06 e-Cigarette/Vaping Use Never Used 12/19/22 10:06 Depression Screening Interpretation: Negative Thrive Assessment: Date of Thrive Assessment Date Thrive assessed 12/19/22 12/19/22 09:40 Currently or been in a relationship where the following occur: no concerns reported and I choose not to answer this question Const General: cooperative, comfortable, no acute distress, alert and awake; No confusion Orientation/consciousness: oriented to person, oriented to place, patient oriented x3 and No confusion HENMT Head: Yes normocephalic Ears: external ears normal and TM's normal bilaterally Face and sinus: No sinus tenderness Mouth: Normal oral and palatal mucosa present and tongue normal Teeth and gingiva: dentition normal and gingiva normal Throat: Yes posterior oropharynx normal, Yes tonsils normal and Yes uvula midline Eyes Conjunctivae: conjunctivae normal Sclerae: sclerae normal Pupils: Equal, round and reactive pupils present EOM: EOMs intact bilaterally Direct Ophthalmoscopy: No no photophobia Neck Neck: Yes no lymphadenopathy, No tender and Yes no JVD Thyroid: Thyroid normal Carotids: no bruits Chest Chest palpation & inspection: no tenderness Resp Effort & Inspection: normal respiratory effort, no audible wheezes, not labored and no stridor Auscultation: no crackles, no rales, no rhonchi and no wheezes Cardio Jugular venous distension: no JVD Rate: regular rate, not bradycardic and not tachycardic Rhythm: regular rhythm Bruits: no carotid bruits Peripheral pulses: Peripheral pulses 2+ throughout GI Inspection: Yes normal to inspection, No abdominal wall ecchymosis and No visible herniation Palpation (GI): Soft to palpation, nontender, no guarding, not rigid and No hepatosplenomegaly present Auscultation: normoactive bowel sounds General: Yes no CVA tenderness Back/Spine/Pelvis Back: no CVA tenderness and No back tenderness Cervical Spine: cervical ROM normal Thoracic/Lumbar Spine: thoracic and lumbar spine normal to inspection, straight leg raise negative bilaterally, No thoraco-lumbar ROM limited and No lumbar spinal tenderness Skin Lesions: no lesions Rashes: no rashes Wounds: no wounds Neuro General: oriented to person, oriented to place, patient oriented x3, CN's II-XI intact bilaterally and No confusion Cranial nerves: Yes Equal, round and reactive pupils present and Yes Normal accommodation reflex present Cognition (Neuro): normal cognition Speech: No Abnormal speech present Gait exam (Neuro): Normal gait present Motor exam (neuro): 5/5 motor strength present throughout Extrem Right upper extremity: full ROM; no cyanosis Left upper extremity: full ROM; no cyanosis Right lower extremity: no edema Left lower extremity: no edema Psych Appearance: grossly normal Mental Status: mental status grossly normal Affect: normal affect Attitude: cooperative Thought process: Normal thought process present Office Procedures Flu Questionnaire Does the patient have a severe egg allergy?: No Does the patient have severe life threatening allergies?: No Does the patient have a fever or illness today?: No Has the patient ever had Guillain-[place] Syndrome?: No Has the patient ever had any past reaction to a flu shot?: No Immunizations flu vacc [id number] 6mos up(PF) 60 mcg(15 mcgx4)/0.5 mL IM syringe Performing Provider: Abraham Lion PA-C [facility] [place] [facility] Administered by: LANE Cohn on 12/19/22 10:32 Dose Route Admin Location Dispensed Lot Number Expiration Date NDC Metal Stud Framer 0.5 mL IM Left Deltoid 0.5 mL [id number] 08/17/23 [id number] [employer] VIS Given Date VIS Provided VIS Publication Date 12/19/22 Single Vaccine 20 Eligibility Eligibility Date Funding Source Not VFC Eligible 12/19/22 Private Assessment and Plan Assessment & Plan (1) Annual physical exam: Code(s): Z00.00 - Encounter for general adult medical examination without abnormal findings (2) MAMADOU (generalized anxiety disorder): Code(s): F41.1 - Generalized anxiety disorder Plan: Patient's MAMADOU-7 score positive for moderate anxiety which has been existing condition for. She is not interested in medication for diet E. She does use marijuana from time to time for her anxiety which is helpful. Not interested in cognitive behavior therapy at this time. She is considering getting more physically active to help her anxiety. Orders: Orders Comprehensive [place]. Panel Fast Today Z13.1 - Encounter for screening for diabetes mellitus UA CC w/rflx Micro + Cult Today R30.0 - Dysuria, R31.29 - Other microscopic hematuria Complete Blood Count no Diff Today N92.0 - Excessive and frequent menstruation with regular cycle Influenza [id number] Immunization Today Z23 - Encounter for immunization Coding Level of Care Code Est Pt Prev Care 18-39y(21440) Diagnoses Annual physical exam Z00.00 MAMADOU (generalized anxiety disorder) F41.1 Additional Codes MAMADOU-7 Assessment Billing - MAMADOU-7 Assessment Tool: MAMADOU-7 Assessment [id number] ([id number])
[2022-12-19 09:31] VITALS: BP 128/88; PULSE 87; O2SAT 99; BMI 25.9
== END 2022-12-19 10:32 | disposition home or self-care (01) ==
PROVIDERS: PCP Physician Assistant; Visit Provider Physician Assistant
DX: Z00.00 Encounter for general adult medical examination without abnormal findings (principal); F41.1 Generalized anxiety disorder; Z23 Encounter for immunization
CPT/HCPCS: 90471; 90686; 99395

== ENCOUNTER 2022-12-19 10:38 | Outpatient (REF) | payer OTHER, SELFPAY ==
[2022-12-19 11:44] LABS: Hematocrit 41.5 % (37.0-47.0); Hemoglobin 14.1 g/dl (12.0-16.0); Mean Corpuscular Hemoglobin 29.7 pg (27.0-33.0); Mean Corpuscular Volume 87.4 fL (80.0-98.0); Mean Platelet Volume 9.6 fL (9.4-12.3); Platelet Count 350 X10*3/uL (160-400); Red Blood Count 4.75 X10*6/uL (4.20-5.50); Red Cell Distribution Width 12.7 % (11.0-16.0); White Blood Count 5.5 X10*3/uL (4.8-10.8)
[2022-12-19 12:28] LABS: Alanine Aminotransferase 16 U/L (0-31); Albumin Level 4.3 g/dL (3.5-5.0); Alkaline Phosphatase 62 U/L (39-117); Anion Gap 10 (12-20); Aspartate Amino Transferase 19 U/L (5-31); Bilirubin Total 0.4 mg/dL (0.0-1.0); Blood Urea Nitrogen 9 mg/dL (9-16); Calcium 9.4 mg/dL (8.4-10.2); Carbon Dioxide 29 mmol/L (22-29); Chloride 106 mmol/L (96-108); Estimated Glomerular Filt Rate > 60; Glucose Fasting 94 mg/dL (60-99); Potassium 4.3 mmol/L (3.3-5.1); Sodium 141 mmol/L (135-145); Total Protein 7.5 g/dL (6.5-8.0)
[2022-12-19 14:05] LABS: Appearance Urine Clear; Color Urine Yellow; Glucose Urine UA Negative (Negative); Leukocyte Esterase Urine Negative (Negative); Nitrite Urine Negative (Negative); PH 6.5 (5.0-9.0); Specific Gravity - Urine 1.025 (1.005-1.025); Urine Blood Negative (Negative); Urine Ketones Negative (Negative); Urine Protein Negative (Neg-Trace)
== END 2022-12-19 10:39 | disposition home or self-care (01) ==
LOC: HO.LAB 10:38
PROVIDERS: PCP Physician Assistant; Visit Provider Physician Assistant
DX: Z13.1 Encounter for screening for diabetes mellitus (principal); R30.0 Dysuria; R31.29 Other microscopic hematuria; N92.0 Excessive and frequent menstruation with regular cycle
CPT/HCPCS: 36415; 80053; 81003; 85027

== ENCOUNTER 2023-02-27 08:51 | Outpatient (AMB) | payer OTHER, SELFPAY ==
--- NOTE | 2023-02-27 09:13 | A.OFFVIS_ITS ---
Intake Vital Signs 02/27/23 09:14 Height 5 ft 3 in Weight 145 lb 8.081 oz BMI 25.8 BP 104/62 Intake Visit Reasons: Annual Intake Note: no concerns Founder And Chief Technical Officer Required: No Information Interpreted: non-clinical & clinical Behavioral Science Chair: Behavioral Science Chair Present (Na LEROY) Accompanied by: Self / Same As Patient Allergies aspirin [ASPIRIN] Allergy (Unknown, Verified 02/27/23 09:17) SWELLING, anaphylaxis penicillin G Allergy (Unknown, Verified 02/27/23 09:17) Unknown Clindamycin Allergy (Unknown, Uncoded 02/27/23 09:17) Unknown SEAFOOD Allergy (Unknown, Uncoded 02/27/23 09:17) SWELLING Is last menstrual period known: Yes Last menstrual period: 02/07/23 HPI HPI Comments History of Present Illness Details Presenting for annual exam. No complaints. 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 Sexual orientation: Straight/Heterosexual Gender identity: Female Cognitive needs: No Hearing needs: No Vision needs: No Female Reproductive History Menstrual Age of Menarche: 9 Date of last menstrual period: 02/07/23 control method: copper IUCD Total pregnancies: 0 Date of last pap smear: 02/26/22 Review of Systems Const All systems reviewed & are unremarkable except as noted in HPI and below Card Reports as per HPI Resp Reports as per HPI GI Reports as per HPI and Reports no additional complaints Reports as per HPI Physical Exam Vital Signs: Last Vital Signs BP 104/62 02/27/23 09:14 BMI result Body Mass Index 25.8 Const General: cooperative, healthy appearing and comfortable Chest Chest palpation & inspection: normal inspection of the chest and normal palpation of entire chest wall Breast/axilla inspection: normal inspection of the breasts and normal inspection of the axillae Breast/axilla palpation: normal palpation of the breasts, normal palpation of the axillae and no axillary lymphadenopathy Resp Effort & Inspection: normal respiratory effort Auscultation: clear to auscultation bilaterally Percussion: percussion normal Cardio Palpation: normal PMI Rate: regular rate Rhythm: regular rhythm Heart sounds: no murmurs and no rubs Peripheral pulses: Peripheral pulses 2+ throughout GI Inspection: Yes normal to inspection Palpation (GI): Soft to palpation, nontender, no guarding, not rigid and No hepatosplenomegaly present Percussion: Yes normal to percussion Auscultation: normal bowel sounds Rectal Exam - Female: deferred General: Yes bladder normal to palpation External Female Exam: No lesion Speculum Exam - Vagina: normal appearance of the vagina, normal palpation, normal vaginal discharge and not erythematous Speculum Exam - Cervix: normal appearance of the cervix and normal palpation Bimanual exam- vagina & uterus: normal bimanual exam, normal palpation, uterine size normal, bladder normal to palpation, consistency normal and normal palpation Bimanual Exam- Adnexa, other: normal adnexae, no masses and no tenderness Assessment & Plan Assessment & Plan (1) Well woman exam: Code(s): Z01.419 - Encounter for gynecological examination (general) (routine) without abnormal findings Plan: GC/CT taken. Pap smear not indicated this year. Gardasil vaccine series today, it 1 months and 6 months Counseled the patient about the recommended dietary allowance of 1000 mg of Calcium & 600 IU of vitamin D. The patient was instructed to perform monthly self-breast exams , to call for any changes in menstrual patterns and to schedule appointments for dose 2 and 3 for her HPV vaccine and an annual exam in a year; all questions answered and the patient verbalized understanding. Orders: Orders Human Papillomavirus Immunization Today Z23 - Encounter for immunization Medications: New Gardasil 9 (PF) (human papillomav vac,9-dolores(PF)) 0.5 mL IM ONCE 0.5 mL 0RF NS Z23 - Encounter for immunization Coding Level of Care Code Est Pt Prev Care 18-39y(44374) Diagnoses Well woman exam Z01.419
[2023-02-27 09:14] VITALS: BP 104/62; BMI 25.8
== END 2023-02-27 09:35 | disposition home or self-care (01) ==
LOC: HO.HWS 08:51
PROVIDERS: PCP Physician Assistant; Visit Provider Obstetrics & Gynecology
DX: Z01.419 Encounter for gynecological examination (general) (routine) without abnormal findings (principal)
CPT/HCPCS: 99395

== ENCOUNTER 2023-02-27 08:51 | Outpatient (REF) | payer OTHER, SELFPAY ==
[2023-02-27 11:55] LABS: CT PCR NOT DETECTED (Not Detect.); NG PCR NOT DETECTED (Not Detect.)
== END 2023-02-27 08:52 | disposition home or self-care (01) ==
LOC: HO.LNP 08:51
PROVIDERS: PCP Physician Assistant; Visit Provider Obstetrics & Gynecology
DX: Z01.419 Encounter for gynecological examination (general) (routine) without abnormal findings (principal); Z20.2 Contact with and (suspected) exposure to infections with a predominantly sexual mode of transmission
CPT/HCPCS: 0353U; 99395

== ENCOUNTER 2023-02-28 12:48 | Outpatient (AMB) | payer OTHER, SELFPAY ==
--- NOTE | 2023-02-28 13:17 | AM.OFFVISNUR ---
Intake Intake Visit Reasons: HPV Drama Director Required: No Allergies aspirin [ASPIRIN] Allergy (Unknown, Verified 02/27/23 09:17) SWELLING, anaphylaxis penicillin G Allergy (Unknown, Verified 02/27/23 09:17) Unknown Clindamycin Allergy (Unknown, Uncoded 02/27/23 09:17) Unknown SEAFOOD Allergy (Unknown, Uncoded 02/27/23 09:17) SWELLING Post menopausal: No Patient : No Nursing Note Lizz is here today for #1 Gardasil 9 injection. Pt denies allergy to yeast. We reviewed side effects and need to remain in office for 15 minutes in case of reaction. Pt verbalizes understanding and agrees with plan. No further questions. Pt remained in office for observation as discussed, no c/o side effects and pt left the office in good condition. Immunizations Gardasil 9 (PF) 0.5 mL intramuscular suspension Performing Provider: Sammy Cummings MD Performing Location: [facility] [place] [facility] Administered by: Lizzie Alfonso on 02/28/23 13:45 Dose Route Admin Location Dispensed Lot Number Expiration Date [facility] Kiln Burner Helper 0.5 mL IM Right Deltoid 0.5 mL [id number] 03/07/25 5037-7865-22 [employer] VIS Given Date VIS Provided VIS Publication Date 02/28/23 Single Vaccine 20 Eligibility Eligibility Date Funding Source Not [facility] Eligible 02/28/23 Private Coding Level of Care Code Established Pt Est Pt Level 1 (12656) Patient Type Established History Problem Focused Medical Decision Making Straight Forward Time Spent (min) 15 Assessment & Plan Assessment & Plan Plan Next HPV injection due in 2 months Orders: Orders Human Papillomavirus Immunization Today Z23 - Encounter for immunization Patient Instructions: Pt will schedule next HPV injection in 2 months. Pt verbalizes understanding and agrees with plan.
== END 2023-02-28 13:18 | disposition home or self-care (01) ==
LOC: HO.HWS 12:48
PROVIDERS: PCP Physician Assistant; Visit Provider Obstetrics & Gynecology
DX: Z23 Encounter for immunization (principal)

== ENCOUNTER → 2023-02-28 12:48 | Outpatient (BNVA) | payer OTHER, SELFPAY | PROVIDERS: PCP Physician Assistant; Visit Provider Obstetrics & Gynecology | DX: Z23 Encounter for immunization (principal) | CPT/HCPCS: 90471; 90651; 99211 ==

== ENCOUNTER 2023-04-29 09:00 | Outpatient (AMB) | payer OTHER, SELFPAY ==
--- NOTE | 2023-04-29 09:33 | AM.OFFVISNUR ---
Intake Vital Signs 04/29/23 09:34 Height 5 ft 3 in Weight 144 lb BMI 25.5 BP 118/70 Intake Visit Reasons: HPV Analysis Mgr Required: No Allergies aspirin [ASPIRIN] Allergy (Unknown, Verified 02/27/23 09:17) SWELLING, anaphylaxis penicillin G Allergy (Unknown, Verified 02/27/23 09:17) Unknown Clindamycin Allergy (Unknown, Uncoded 02/27/23 09:17) Unknown SEAFOOD Allergy (Unknown, Uncoded 02/27/23 09:17) SWELLING Is last menstrual period known: Yes Post menopausal: No Patient : No Do you need a note to return to daycare/school/sports/work: No Nursing Note Lizz is here for her second Gardasil 9 HPV injection. No c/o, no new diagnoses or medications. LMP 04/10/23. Pt tolerated injection well. She will remain in waiting room 10-15 minutes in case of reaction. Pt verbalizes understanding and agrees with plan. She will schedule her next injection in August. Immunizations Gardasil 9 (PF) 0.5 mL intramuscular suspension Performing Provider: Sammy Cummings MD Performing Location: [facility] [place] [facility] Administered by: Lizzie Alfonso on 04/29/23 09:38 Dose Route Admin Location Dispensed Lot Number Expiration Date [facility] Lead Furnace Operator 0.5 mL IM Left Deltoid 0.5 mL [id number] 03/07/25 1428-6561-18 [employer] VIS Given Date VIS Provided VIS Publication Date 04/29/23 Single Vaccine 20 Eligibility Eligibility Date Funding Source Not [facility] Eligible 04/29/23 Private Coding Level of Care Code Established Pt Est Pt Level 1 (19127) Patient Type Established History Problem Focused Medical Decision Making Straight Forward Time Spent (min) 12 Assessment & Plan Assessment & Plan Plan Pt will schedule her third injection in August 2023. Orders: Orders Human Papillomavirus Immunization Today Z23 - Encounter for immunization
[2023-04-29 09:34] VITALS: BP 118/70; BMI 25.5
== END 2023-04-29 09:24 | disposition home or self-care (01) ==
LOC: HO.HWS 09:00
PROVIDERS: PCP Physician Assistant; Visit Provider Obstetrics & Gynecology
DX: Z23 Encounter for immunization (principal)

== ENCOUNTER → 2023-04-29 09:00 | Outpatient (BNVA) | payer OTHER, SELFPAY | PROVIDERS: PCP Physician Assistant; Visit Provider Obstetrics & Gynecology | DX: Z23 Encounter for immunization (principal) | CPT/HCPCS: 90471; 90651; 99211 ==

== ENCOUNTER 2023-05-06 11:46 | Outpatient (REF) | payer OTHER, SELFPAY | END 2023-05-06 11:47 | disposition home or self-care (01) | LOC: HO.LNP 11:46 | PROVIDERS: PCP Physician Assistant; Visit Provider Obstetrics & Gynecology | DX: N93.9 Abnormal uterine and vaginal bleeding, unspecified (principal); Z32.02 Encounter for pregnancy test, result negative | CPT/HCPCS: 81025; 99212 ==

== ENCOUNTER 2023-05-06 11:46 | Outpatient (AMB) | payer OTHER, SELFPAY ==
[2023-05-06 11:56] VITALS: BP 116/74; BMI 25.4
--- NOTE | 2023-05-06 11:56 | MHC.OFFVIS ---
Intake Vital Signs 05/06/23 11:56 Height 5 ft 3 in Weight 143 lb 4.807 oz BMI 25.4 BP 116/74 Intake Visit Reasons: vaginal bleeding [facility] Clergy Required: No Information Interpreted: non-clinical & clinical Public Health Educator: Public Health Educator Present (Na LEROY) Accompanied by: Self / Same As Patient Allergies aspirin [ASPIRIN] Allergy (Unknown, Verified 05/06/23 11:57) SWELLING, anaphylaxis penicillin G Allergy (Unknown, Verified 05/06/23 11:57) Unknown Clindamycin Allergy (Unknown, Uncoded 05/06/23 11:57) Unknown SEAFOOD Allergy (Unknown, Uncoded 05/06/23 11:57) SWELLING HPI HPI Comments History of Present Illness Details Presenting complaining of irregular menstrual cycles over the last few weeks with pelvic cramping and no other symptoms. 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 Sexual orientation: Straight/Heterosexual Gender identity: Female Cognitive needs: No Hearing needs: No Vision needs: No Female Reproductive History Menstrual Age of Menarche: 9 Date of last menstrual period: 04/10/23 control method: copper IUCD Review of Systems Const All systems reviewed & are unremarkable except as noted in HPI and below Physical Exam Vital Signs: Last Vital Signs BP 116/74 05/06/23 11:56 BMI result Body Mass Index 25.4 General: Yes no CVA tenderness External Female Exam: normal external appearance and normal appearance of the urethra Speculum Exam - Vagina: normal appearance of the vagina, normal palpation, no lesions and no masses Speculum Exam - Cervix: normal appearance of the cervix, normal palpation, no lesions, no masses, nontender and Other cervical findings present (IUD thread in place) Bimanual exam- vagina & uterus: normal bimanual exam, normal palpation, uterine size normal, normal palpation, uterine shape normal, No Cervical tenderness present and non-tender Bimanual Exam- Adnexa, other: normal adnexae Back/Spine/Pelvis Back: no CVA tenderness Results AMB Test Urine AMB Test Urine Negative Last Edit by Na Reza CMA on 05/06/23 12:08 Assessment & Plan Assessment & Plan (1) Abnormal uterine bleeding (AUB): Comment: With ParaGard IUD Code(s): N93.9 - Abnormal uterine and vaginal bleeding, unspecified Plan: Urine test done in the office was negative. GC and CT taken. Will order CBC, TSH, prolactin, hCG, pelvic ultrasound. Instructions given the patient to schedule a 2 week follow-up appointment. All questions answered, the patient verbalized understanding. Orders: Orders CT NG by PCR Today N93.9 - Abnormal uterine and vaginal bleeding, unspecified TSH reflex Free T4 Today N93.9 - Abnormal uterine and vaginal bleeding, unspecified HCG Quantitative Today N93.9 - Abnormal uterine and vaginal bleeding, unspecified Complete Blood Count no Diff Today N93.9 - Abnormal uterine and vaginal bleeding, unspecified AMB HCG Urine Test Today Z32.02 - Encounter for test, result negative Prolactin Today N93.9 - Abnormal uterine and vaginal bleeding, unspecified US pelvic and transvaginal Today N93.9 - Abnormal uterine and vaginal bleeding, unspecified Coding Level of Care Code Est Pt Level 3 (18256) Diagnoses Abnormal uterine bleeding (AUB) N93.9
== END 2023-05-06 12:18 | disposition home or self-care (01) ==
PROVIDERS: PCP Physician Assistant; Visit Provider Obstetrics & Gynecology
DX: N93.9 Abnormal uterine and vaginal bleeding, unspecified (principal); Z32.02 Encounter for pregnancy test, result negative
CPT/HCPCS: 99213

== ENCOUNTER 2023-05-06 12:19 | Outpatient (REF) | payer OTHER, SELFPAY ==
[2023-05-06 13:01] LABS: Hematocrit 39.2 % (37.0-47.0); Hemoglobin 13.3 g/dl (12.0-16.0); Mean Corpuscular HGB Conc 33.9 g/dl (31.0-35.0); Mean Corpuscular Volume 88.5 fL (80.0-98.0); Platelet Count 268 X10*3/uL (160-400); Red Blood Count 4.43 X10*6/uL (4.20-5.50); White Blood Count 6.4 X10*3/uL (4.8-10.8)
[2023-05-06 18:08] LABS: CT PCR NOT DETECTED (Not Detect.); NG PCR NOT DETECTED (Not Detect.)
[2023-05-06 19:27] LABS: HCG Quantitative < 2 mIU/mL; TSH reflex Free T4 0.47 uIU/mL (0.32-4.0)
[2023-05-07 15:29] LABS: Prolactin 20.5 ng/mL
== END 2023-05-06 12:20 | disposition home or self-care (01) ==
LOC: HO.LAB 12:19
PROVIDERS: PCP Physician Assistant; Visit Provider Obstetrics & Gynecology
DX: N93.9 Abnormal uterine and vaginal bleeding, unspecified (principal); Z32.02 Encounter for pregnancy test, result negative
CPT/HCPCS: 0353U; 84146; 84443; 84702; 85027

== ENCOUNTER 2023-05-21 10:43 | Outpatient (REF) | payer OTHER, SELFPAY ==
--- NOTE | ~2023-05-21 | US_ITS ---
EXAMINATION: US PELVIS CLINICAL INFORMATION: Abnormal uterine bleeding; the last menstrual period was on 05/07/2023. COMPARISON: None available. TECHNIQUE: Ultrasound of the pelvis is performed using both transabdominal and transvaginal transducers along with Doppler. Transvaginal imaging is performed due to inadequate visualization transabdominally. FINDINGS: Uterus: The uterus is anteverted and measures 6.8 x 3.0 x 4.6 cm. The uterus is anteverted and anteflexed. The double wall endometrial thickness is 4 mm. An intrauterine device is seen, properly situated within the endometrial canal. The uterus is smooth in contour and has normal myometrial echogenicity. No visible fibroid. Adnexa: Both ovaries are visualized. There is normal color flow to the adnexa. There is no ovarian torsion. There is no pelvic ascites or fluid collection. Right ovary measures 3.1 x 2.4 x 2.0 cm, volume 7.8 mL. There are physiologic follicles within the ovaries, which require no imaging follow-up. Left ovary measures 3.2 x 1.7 x 2.3 cm, volume 6.6 mL. There are physiologic follicles within the ovaries, which require no imaging follow-up. US/US pelvic and transvaginal IMPRESSION: An intrauterine device is seen, properly situated within the endometrial canal. The examination is otherwise unremarkable.
== END 2023-05-21 10:44 | disposition home or self-care (01) ==
LOC: HO.US 10:43
PROVIDERS: PCP Physician Assistant; Visit Provider Obstetrics & Gynecology
DX: N93.9 Abnormal uterine and vaginal bleeding, unspecified (principal)
CPT/HCPCS: 76830; 76856

== ENCOUNTER 2023-07-23 14:53 | Outpatient (REF) | payer OTHER, SELFPAY ==
[2023-07-24 04:19] LABS: HBS Num1 64.05 mIU/mL (0-7.99); HBc Num1 0.09 S/CO (0.00-0.79); HBsAGNum1 0.31 S/CO (0.00-0.99); Hepatitis B Core Antibody Nonreactive (Nonreactive); Hepatitis B Surface Antigen Negative (Negative); ~Hepatitis B Surface Antibody REACTIVE (Nonreactive); ~Hepatitis C Antibody Nonreactive (Nonreactive)
[2023-07-24 19:14] LABS: Mumps Virus IgG Antibody >300.00 AU/mL; Rubeola IgG (Measles) >300.00 AU/mL
[2023-07-26 17:54] LABS: TS Negative Control Passed; TS Panel A 2; TS Panel B 0; TS Positive Control Passed; TSpotTB Negative (Negative)
== END 2023-07-23 14:54 | disposition home or self-care (01) ==
LOC: HO.LAB 14:53
PROVIDERS: PCP Physician Assistant; Visit Provider Physician Assistant
DX: Z11.1 Encounter for screening for respiratory tuberculosis (principal); Z23 Encounter for immunization; Z11.3 Encounter for screening for infections with a predominantly sexual mode of transmission
CPT/HCPCS: 36415; 86481; 86704; 86706; 86735; 86762; 86765; 86787; 86803; 87340

== ENCOUNTER 2023-08-05 07:24 | Outpatient (AMB) | payer OTHER, SELFPAY ==
--- NOTE | 2023-08-05 07:31 | A.OFFVIS_ITS ---
Vital Signs 08/05/23 07:34 Height 5 ft 3 in Weight 143 lb 4.807 oz BMI 25.4 BP 118/72 Intake Visit Reasons: US follow up/DO NOT RS Reel Winder Required: No Information Interpreted: non-clinical & clinical Accompanied by: Self / Same As Patient Allergies aspirin [ASPIRIN] Allergy (Unknown, Verified 08/05/23 07:35) SWELLING, anaphylaxis penicillin G Allergy (Unknown, Verified 08/05/23 07:35) Unknown Clindamycin Allergy (Unknown, Uncoded 08/05/23 07:35) Unknown SEAFOOD Allergy (Unknown, Uncoded 08/05/23 07:35) SWELLING Is last menstrual period known: Yes Last menstrual period: 07/09/23 HPI Comments Details: The patient is presenting for follow-up to discuss the results of her abnormal uterine bleeding workup and options of treatment. The following workup was done.: H&H= 13.3/39.2 TSH, hCG, GC and chlamydia were negative. Pap smear was done in 03/11 was negative. Pelvic ultrasound showed the following: IMPRESSION: An intrauterine device is seen, properly situated within the endometrial canal. The examination is otherwise unremarkable. 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 Sexual orientation: Straight/Heterosexual Gender identity: Female Cognitive needs: No Hearing needs: No Vision needs: No Female Reproductive History Menstrual Age of Menarche: 9 Date of last menstrual period: 07/09/23 Review of Systems Const All systems reviewed & are unremarkable except as noted in HPI and below Reports as per HPI and Reports no additional complaints GI Reports no additional complaints Reports no additional complaints Physical Exam Vital Signs: Last Vital Signs BP 118/72 08/05/23 07:34 BMI result Body Mass Index 25.4 Assessment & Plan Assessment & Plan (1) Abnormal uterine bleeding (AUB): Comment: With ParaGard IUD Code(s): N93.9 - Abnormal uterine and vaginal bleeding, unspecified Category: Medical Plan: Discussed with the patient the results of the work up done and options of treatment including NSAIDs day 1 to 3 q.8 hours to reduce hypermenorrhea/dysmenorrhea. Instructions given the patient to call if AUB is persistent will treat accordingly. All questions answered the patient verbalized understanding. Coding Level of Care Code Est Pt Level 3 (80826) Diagnoses Abnormal uterine bleeding (AUB) N93.9
[2023-08-05 07:34] VITALS: BP 118/72; BMI 25.4
== END 2023-08-05 07:44 | disposition home or self-care (01) ==
PROVIDERS: PCP Physician Assistant; Visit Provider Obstetrics & Gynecology
DX: N93.9 Abnormal uterine and vaginal bleeding, unspecified (principal)
CPT/HCPCS: 99213

== ENCOUNTER → 2023-08-05 07:24 | Outpatient (BNVA) | payer OTHER, SELFPAY | PROVIDERS: PCP Physician Assistant; Visit Provider Obstetrics & Gynecology | DX: N93.9 Abnormal uterine and vaginal bleeding, unspecified (principal); Z97.5 Presence of (intrauterine) contraceptive device | CPT/HCPCS: 99212 ==

== ENCOUNTER 2023-09-01 10:56 | Outpatient (AMB) | payer OTHER, SELFPAY ==
--- NOTE | 2023-09-01 13:37 | AM.OFFVISNUR ---
Intake Visit Reasons: HPV Allergies aspirin [ASPIRIN] Allergy (Unknown, Verified 08/05/23 07:35) SWELLING, anaphylaxis penicillin G Allergy (Unknown, Verified 08/05/23 07:35) Unknown Clindamycin Allergy (Unknown, Uncoded 08/05/23 07:35) Unknown SEAFOOD Allergy (Unknown, Uncoded 08/05/23 07:35) SWELLING Nursing Note Lizz was seen today for her 3rd Garadasil inj, pt tolerated well. Series completed. Assessment & Plan Assessment & Plan Orders: Orders Human Papillomavirus State Immunization Today Z23 - Encounter for immunization Medications: New Gardasil 9 (PF) (human papillomav vac,9-dolores(PF)) 0.5 mL IM ONCE 0.5 mL 0RF Vaccination NS Z23 - Encounter for immunization
== END 2023-09-01 13:52 | disposition home or self-care (01) ==
LOC: HO.HWS 10:56
PROVIDERS: PCP Physician Assistant; Visit Provider Obstetrics & Gynecology
DX: Z23 Encounter for immunization (principal)
CPT/HCPCS: 90651

== ENCOUNTER → 2023-09-01 10:56 | Outpatient (BNVA) | payer OTHER, SELFPAY | PROVIDERS: PCP Physician Assistant; Visit Provider Obstetrics & Gynecology | DX: Z23 Encounter for immunization (principal) | CPT/HCPCS: 90471; 99211 ==

== ENCOUNTER 2023-09-15 12:53 | Outpatient (AMB) | payer OTHER, SELFPAY ==
[2023-09-15 13:41] VITALS: BP 108/80; PULSE 88; TEMP 36.9; O2SAT 98; BMI 26.4
--- NOTE | 2023-09-15 13:41 | AM.OFFWIN_ITS ---
Intake Vital Signs 09/15/23 13:41 Height 5 ft 3 in Weight 149 lb BMI 26.4 BP 108/80 Blood Pressure Location Lt brachial Position Sitting Pulse 88 Pulse Source Pulse Oximeter Temp 98.4 F Temp Source Oral Pulse Oximetry (%) 98 Oxygen Delivery Method Room Air Intake Visit Reasons: sore throat, fever, diarrhea- [phone] Intake Note: pt c/o sore throat,fever,diarrhea. Started yesterday Patient Tobacco Use Status: Never used Tobacco Allergies aspirin [ASPIRIN] Allergy (Unknown, Verified 09/15/23 13:41) SWELLING, anaphylaxis penicillin G Allergy (Unknown, Verified 09/15/23 13:41) Unknown Clindamycin Allergy (Unknown, Uncoded 09/15/23 13:41) Unknown SEAFOOD Allergy (Unknown, Uncoded 09/15/23 13:41) SWELLING Medication List - Last Reconciled 09/15/23 by Flor Luz NP copper (ParaGard T 380A) intrauterine Do you need a note to return to daycare/school/sports/work: Yes HPI sore throat, fever, diarrhea- [phone] HPI Details This note is constructed using voice recognition software. While every effort has been made to ensure accuracy, boring machine set up operator errors may have been included. The patient is a 23 year old female who presents to the clinic today with sore throat, fever 102, diarrhea since yesterday. 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 She took Tylenol to help reduce her fever, and has increased her hydration efforts. 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 Sexual orientation: Straight/Heterosexual Gender identity: Female Cognitive needs: No Hearing needs: No Vision needs: No Female Reproductive History Menstrual Age of Menarche: 9 Review of Systems Const All systems reviewed & are unremarkable except as noted in HPI and below Physical Exam Vital Signs: Last Vital Signs Temp 98.4 F 09/15/23 13:41 Pulse 88 09/15/23 13:41 BP 108/80 09/15/23 13:41 Pulse Ox 98 09/15/23 13:41 Oxygen Delivery Method Room Air 09/15/23 13:41 BMI result Body Mass Index 26.4 Const General: cooperative, healthy appearing, comfortable and no acute distress Orientation/consciousness: patient oriented x3 Limitations: no limitations HEENT Head: Yes normal to inspection Ears: hearing grossly normal bilaterally, external ears normal and TM's normal bilaterally General nose exam: Normal external nose present, Normal nares present and No nasal discharge present Face and sinus: Yes normal facial exam and Yes sinuses nontender Mouth: Normal oral and palatal mucosa present and moist mucous membranes Throat: Yes tonsils normal, Yes uvula midline and Yes posterior oropharynx abnormal (Erythema) Eyes General: appearance normal, both eyes and all related structures Neck Neck: Yes normal visual inspection Resp Effort & Inspection: normal respiratory effort, able to speak in complete sentences, Actively coughing, no respiratory distress, not tachypneic, no tripod positioning and no use of accessory muscles Auscultation: clear to auscultation bilaterally Cardio Jugular venous distension: no JVD Rate: regular rate Rhythm: regular rhythm Heart sounds: S1 normal heart sound present, S2 normal heart sound present, no click, no gallops, no murmurs and no rubs GI Inspection: Yes normal to inspection and No distended Palpation (GI): Soft to palpation, nontender and No hepatosplenomegaly present Auscultation: normal bowel sounds Skin General skin exam: no rashes or lesions noted, elasticity normal and turgor normal Neuro General: patient oriented x3 Extrem General: Yes normal to inspection and Yes no clubbing, cyanosis or edema Results AMB Rapid Strep AMB Rapid Strep Negative Last Edit by Eleazar Donovan CMA on 09/15/23 13:57 Results Reviewed Results Reviewed: Laboratory Last Values Strep Scn Rapid Clinic Negative 09/15/23 13:57 Assessment & Plan Assessment & Plan (1) Viral URI: Code(s): J06.9 - Acute upper respiratory infection, unspecified Plan: Supportive measures encouraged and reviewed including hydration, humidification, and [id number] treatment modalities. Viral swab obtained today. Discussed antiviral therapy, which she would be interested in if positive. Advised to remain out of work until results, and also until 24 hour fever free and diarrhea free. (2) Gastroenteritis: Code(s): K52.9 - Noninfective gastroenteritis and colitis, unspecified Plan: Advised ongoing hydration efforts to avoid dehydration. Advised avoidance of work until 24 hours diarrhea free. Vicryl viral in origin. Plan See above for full details and plan. Orders: Orders AMB Rapid Strep Screen Today Lala Viveros, EROSION CONTROL SPECIALIST, HERBOLOGIST Z13.9 - Encounter for screening, unspecified SARS-CoV2/FLU/RSV Today Flor Luz NP J06.9 - Acute upper respiratory infection, unspecified Coding Level of Care Code Est Pt Level 3 (15285) Diagnoses Viral URI J06.9 Gastroenteritis K52.9
== END 2023-09-15 14:19 | disposition home or self-care (01) ==
PROVIDERS: PCP Physician Assistant; Visit Provider Registered Nurse
DX: J06.9 Acute upper respiratory infection, unspecified (principal); K52.9 Noninfective gastroenteritis and colitis, unspecified; Z13.9 Encounter for screening, unspecified
CPT/HCPCS: 87880; 99213

== ENCOUNTER 2023-09-15 14:18 | Outpatient (REF) | payer OTHER, SELFPAY ==
[2023-09-15 22:01] LABS: Influenza A PCR NEGATIVE (Negative); Influenza B PCR NEGATIVE (Negative); Resp Syncy Virus RNA Qual PCR NEGATIVE (Negative); SARS COV2 PCR INHOUSE NEGATIVE (Negative)
== END 2023-09-15 14:19 | disposition home or self-care (01) ==
LOC: HO.LNP 14:18
PROVIDERS: Visit Provider Registered Nurse
DX: J06.9 Acute upper respiratory infection, unspecified (principal)
CPT/HCPCS: 0241U

== ENCOUNTER 2023-09-23 07:32 | Outpatient (AMB) | payer OTHER, SELFPAY ==
[2023-09-23 07:44] VITALS: BP 112/74; BMI 26.4
--- NOTE | 2023-09-23 07:44 | MHC.OFFVIS ---
Vital Signs 09/23/23 07:44 Height 5 ft 3 in Weight 149 lb BMI 26.4 BP 112/74 Intake Visit Reasons: vaginal itch and odor Cable Television Access Coordinator: Cable Television Access Coordinator Present (Mariya) Allergies aspirin [ASPIRIN] Allergy (Unknown, Verified 09/23/23 07:44) SWELLING, anaphylaxis penicillin G Allergy (Unknown, Verified 09/23/23 07:44) Unknown Clindamycin Allergy (Unknown, Uncoded 09/15/23 13:41) Unknown SEAFOOD Allergy (Unknown, Uncoded 09/15/23 13:41) SWELLING Is last menstrual period known: Yes Last menstrual period: 08/31/23 HPI Comments Details: Patient is here today with concerns that she has had some burning at the end of urination and some external itching for the last week and a half. Has increased discharge. She has tried Vagisil wipes and washes along with [id number] UTI oral treatment without improvement. She reports regular cycles with her ParaGard IUD and is currently sexually active. She denies any fever flu-like symptoms or back pain. 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 Sexual orientation: Straight/Heterosexual Gender identity: Female Cognitive needs: No Hearing needs: No Vision needs: No Female Reproductive History Menstrual Age of Menarche: 9 Date of last menstrual period: 08/31/23 Review of Systems Const All systems reviewed & are unremarkable except as noted in HPI and below Physical Exam Vital Signs: Last Vital Signs BP 112/74 09/23/23 07:44 BMI result Body Mass Index 26.4 Const General: cooperative, healthy appearing and no acute distress Orientation/consciousness: patient oriented x3 GI Inspection: Yes normal to inspection Palpation (GI): Soft to palpation and Other GI palpation findings present (Nontender) Rectal Exam - Female: visual inspection normal General: Yes bladder normal to palpation External Female Exam: normal appearance of the urethra Speculum Exam - Vagina: normal appearance of the vagina (White, thicker consistency), normal palpation and normal vaginal discharge Speculum Exam - Cervix: normal appearance of the cervix, normal palpation and Other cervical findings present (IUD strings present) Bimanual exam- vagina & uterus: normal bimanual exam, normal palpation, uterine size normal, bladder normal to palpation, normal palpation, uterine shape normal and non-tender Bimanual Exam- Adnexa, other: normal adnexae Neuro General: patient oriented x3 Results AMB Urinalysis, Automated UA Leukoctes 2 Tamir/uL Last Edit by MARIAA Jacome on 09/23/23 07:56 UA Nitrite Negative Last Edit by MARIAA Jacome on 09/23/23 07:56 UA Urobilinogen 0 mg/dL Last Edit by MARIAA Jacome on 09/23/23 07:56 UA Protein 1 mg/dL Last Edit by MARIAA Jacome on 09/23/23 07:56 UA pH 6.0 Last Edit by MARIAA Jacome on 09/23/23 07:56 UA Blood 0.5 Jaydon/uL Last Edit by MARIAA Jacome on 09/23/23 07:56 UA Specific Martha 1.025 Last Edit by MARIAA Jacome on 09/23/23 07:56 UA Ketone Negative Last Edit by MARIAA Jacome on 09/23/23 07:56 UA Bilirubin 0 mg/dL Last Edit by MARIAA Jacome on 09/23/23 07:56 UA Glucose 0 mg/dL Last Edit by MARIAA Jacome on 09/23/23 07:56 Results Reviewed Results Reviewed: Laboratory Last Values Urine pH (Auto) 6.0 09/23/23 07:52 Specific Martha (Auto) 1.025 09/23/23 07:52 Urine Protein (Auto) 1 mg/dL 09/23/23 07:52 Glucose (UA)(Auto) 0 mg/dL 09/23/23 07:52 Urine Ketones (Auto) Negative 09/23/23 07:52 Urine Blood (Auto) 0.5 Jaydon/uL 09/23/23 07:52 Urine Nitrite (Auto) Negative 09/23/23 07:52 Urine Bilirubin (Auto) 0 mg/dL 09/23/23 07:52 Urine Urobilinogen (Auto) 0 mg/dL 09/23/23 07:52 Leukocyte Esterase (Auto) 2 Tamir/uL 09/23/23 07:52 Assessment & Plan Assessment & Plan (1) Dysuria: Code(s): R30.0 - Dysuria (2) Vaginal discharge: Code(s): N89.8 - Other specified noninflammatory disorders of vagina (3) Vulvar itching: Code(s): L29.2 - Pruritus vulvae Plan Discussed: Urine with 2+ leuks and trace blood plan culture, await results for sensitivity match. Initiate Macrobid, Increase hydration, mostly water. Limit caffeine to one cup a day or eliminate altogether. Avoid carbonated, sugary or artificial sweetened beverages. Always clean and wipe from front to back. Empty your bladder often and when the urge. Urinate after intimacy. Take as directed and complete any medications that may be ordered. Report to the ED immediately if any fever >100.4, flu like symptoms, lightheadedness, dizziness, significant flank pain. All of her questions and concerns were addressed to the best of my ability and shared decision making. She is agreeable to the plan of care. This note is constructed using voice recognition software. While every effort has been made to ensure accuracy, lumber chain offbearer errors may have been included. Orders: Orders AMB Urinalysis Automated Today R30.0 - Dysuria Urine Culture Today R30.0 - Dysuria Medications: New nitrofurantoin monohyd/m-cryst 100 mg (Macrobid) must administer with a meal/food 100 mg PO BID 10 caps 0RF UTI 5 days Coding Level of Care Code Est Pt Level 3 (05436) Diagnoses Dysuria R30.0 Vaginal discharge N89.8 Vulvar itching L29.2
== END 2023-09-23 08:54 | disposition home or self-care (01) ==
PROVIDERS: PCP Physician Assistant; Visit Provider Advanced Practice Midwife
DX: R30.0 Dysuria (principal); N89.8 Other specified noninflammatory disorders of vagina; L29.2 Pruritus vulvae
CPT/HCPCS: 99213

== ENCOUNTER 2023-09-23 07:32 | Outpatient (REF) | payer OTHER, SELFPAY | END 2023-09-23 07:33 | disposition home or self-care (01) | LOC: HO.LAB 07:32 | PROVIDERS: PCP Physician Assistant; Visit Provider Advanced Practice Midwife | DX: N89.8 Other specified noninflammatory disorders of vagina (principal); R30.0 Dysuria; L29.2 Pruritus vulvae; Z97.5 Presence of (intrauterine) contraceptive device | CPT/HCPCS: 81003; 99212 ==

== ENCOUNTER 2023-09-23 08:11 | Outpatient (REF) | payer OTHER, SELFPAY ==
[2023-09-23 17:26] LABS: Bacterial Vaginosis PCR NEGATIVE (Negative); Candida Group PCR NOT DETECTED (Not Detect); Candida glab krusei PCR NOT DETECTED (Not Detect); Trichomonas vaginalis PCR NOT DETECTED (Not Detect)
[2023-09-23 17:56] LABS: CT PCR NOT DETECTED (Not Detect.); NG PCR NOT DETECTED (Not Detect.)
== END 2023-09-23 08:12 | disposition home or self-care (01) ==
LOC: HO.LNP 08:11
PROVIDERS: Visit Provider Advanced Practice Midwife
DX: L29.2 Pruritus vulvae (principal); N89.8 Other specified noninflammatory disorders of vagina; R30.0 Dysuria
CPT/HCPCS: 0352U; 87086; 87491; 87591

== ENCOUNTER 2023-11-25 13:14 | Outpatient (AMB) | payer OTHER, SELFPAY ==
--- NOTE | 2023-11-25 13:15 | MHC.OFFWIV ---
Intake Vital Signs 11/25/23 13:17 Height 5 ft 3 in Weight 152 lb BMI 26.9 BP 124/82 Blood Pressure Location Lt brachial Position Sitting Pulse 70 Pulse Source Pulse Oximeter Temp 97.7 F Temp Source Oral Pulse Oximetry (%) 99 Oxygen Delivery Method Room Air Intake Visit Reasons: EP-sore throat, lt ear pain Intake Note: Patient here for sore throat and left ear pain since Friday. 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 and unsure about strep COVID at home negative She rates pain 10/10 Pain worse with eating Trying soups and warm drinks which helps She denies drainage from L ear but + pain PFSH Medical History Microscopic hematuria Hypermenorrhea Migraine with aura Migraine Family History Mother Breast cancer Father CAD (coronary artery disease), Onset Age: 36 Social History Housing: House Alcohol intake: never Patient Tobacco Use Status: Never used Tobacco e-Cigarette/Vaping Use: Never Used Second Hand Smoke Exposure: No Substance Use Type: Marijuana Current occupational status: employed 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 Sexual orientation: Straight/Heterosexual Gender identity: Female Cognitive needs: No Hearing needs: No Vision needs: No Female Reproductive History Menstrual Age of Menarche: 9 Review of Systems Const Denies fever(s) and Denies headache(s) Eyes Denies change in vision ENT Reports otalgia, Denies headache(s), Reports nasal discharge and Reports sore throat Card Denies chest pain and Denies dyspnea Resp Denies cough and Denies dyspnea Skin/Breast Denies rash Neuro Denies headache(s) Physical Exam Vital Signs: Last Vital Signs Temp 97.7 F 11/25/23 13:17 Pulse 70 11/25/23 13:17 BP 124/82 11/25/23 13:17 Pulse Ox 99 11/25/23 13:17 Oxygen Delivery Method Room Air 11/25/23 13:17 BMI result Body Mass Index 26.9 General: Non-toxic, NAD. Speaking full sentences. Skin: Warm dry throughout HENT: Airway patent. Uvula midline. + pharyngeal erythema without exudates or edema. No BURLAP SPREADER. Bilateral canals clear without discharge or edema. TM non-erythematous, non-bulging. No TM perforation or hemotympanum noted. LN: + tonsillar Respiratory: CTA bilaterally. No wheezes, rales or rhonchi Cardiac: RRR. No murmur MSK: Full ROM extremities. Neurology: A/O x 3. CN 2-12 grossly intact. No aphasia or facial droop. Gait without abnormality Psych: Good mood and affect Results AMB Rapid Strep AMB Rapid Strep Negative Last Edit by LANE Laboy on 11/25/23 13:26 Results Reviewed Results Reviewed: Laboratory Last Values Strep Scn Rapid Clinic Negative 11/25/23 13:25 Assessment & Plan Assessment & Plan (1) Pharyngitis: Code(s): J02.9 - Acute pharyngitis, unspecified Qualifiers: Pharyngitis/tonsillitis etiology: unspecified etiology Qualified Code(s): J02.9 - Acute pharyngitis, unspecified Plan: Patient seen and evaluated. 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
[2023-11-25 13:17] VITALS: BP 124/82; PULSE 70; TEMP 36.5; O2SAT 99; BMI 26.9
== END 2023-11-25 14:12 | disposition home or self-care (01) ==
PROVIDERS: PCP Physician Assistant; Visit Provider Physician Assistant
DX: J02.9 Acute pharyngitis, unspecified (principal); Z13.9 Encounter for screening, unspecified

== ENCOUNTER → 2023-11-25 13:14 | Outpatient (BNVA) | payer OTHER, SELFPAY | PROVIDERS: PCP Physician Assistant; Visit Provider Physician Assistant | DX: J02.9 Acute pharyngitis, unspecified (principal) | CPT/HCPCS: 87880; 99212 ==

== ENCOUNTER 2024-02-12 08:32 | Outpatient (REF) | payer OTHER, SELFPAY ==
[2024-02-12 14:46] LABS: Influenza A PCR NEGATIVE (Negative); Influenza B PCR NEGATIVE (Negative); Resp Syncy Virus RNA Qual PCR NEGATIVE (Negative); SARS COV2 PCR INHOUSE NEGATIVE (Negative)
== END 2024-02-12 08:33 | disposition home or self-care (01) ==
LOC: HO.LAB 08:32
PROVIDERS: Registered Nurse; PCP Physician Assistant
DX: J04.0 Acute laryngitis (principal); J06.9 Acute upper respiratory infection, unspecified
CPT/HCPCS: 0241U; 87880; 99212

== ENCOUNTER 2024-02-12 08:32 | Outpatient (AMB) | payer OTHER, SELFPAY ==
--- NOTE | 2024-02-12 09:24 | MHC.OFFWIV ---
Intake Vital Signs 02/12/24 09:27 Weight 153 lb BP 126/80 Blood Pressure Location Lt brachial Position Sitting Pulse 76 Pulse Source Pulse Oximeter Temp 98.0 F Temp Source Oral Pulse Oximetry (%) 98 Oxygen Delivery Method Room Air Intake Visit Reasons: EP Sore throat, loss of voice Intake Note: Patient here for sore throat, loss of voice, fever that started Friday. Patient Tobacco Use Status: Never used Tobacco Allergies aspirin [ASPIRIN] Allergy (Unknown, Verified 02/12/24 09:28) SWELLING, anaphylaxis penicillin G Allergy (Unknown, Verified 02/12/24 09:28) Unknown Clindamycin Allergy (Unknown, Uncoded 02/12/24 09:28) Unknown SEAFOOD Allergy (Unknown, Uncoded 02/12/24 09:) SWELLING Do you need a note to return to daycare/school/sports/work: Yes HPI EP Sore throat, loss of voice HPI Details This note is constructed using voice recognition software. While every effort has been made to ensure accuracy, veterinary attendant errors may have been included. The patient is a 24 year old female who presents to the clinic today with loss of voice for the past 3 days. She reports low-grade fever yesterday, took Tylenol. She reports cough without shortness of breath, nonproductive. She has not taken any cold medicine yet. 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 Sexual orientation: Straight/Heterosexual Gender identity: Female Cognitive needs: No Hearing needs: No Vision needs: No Female Reproductive History Menstrual Age of Menarche: 9 Review of Systems Const All systems reviewed & are unremarkable except as noted in HPI and below Physical Exam Vital Signs: Last Vital Signs Temp 98.0 F 02/12/24 09:27 Pulse 76 02/12/24 09:27 BP 126/80 02/12/24 09:27 Pulse Ox 98 02/12/24 09:27 Oxygen Delivery Method Room Air 02/12/24 09:27 Const General: cooperative, healthy appearing, comfortable and no acute distress Orientation/consciousness: patient oriented x3 Limitations: no limitations HEENT Head: Yes normal to inspection Ears: hearing grossly normal bilaterally, external ears normal and TM's normal bilaterally General nose exam: Normal external nose present, Normal nares present and No nasal discharge present Face and sinus: Yes normal facial exam and Yes sinuses nontender Mouth: Normal oral and palatal mucosa present and moist mucous membranes Throat: Yes tonsils normal, Yes uvula midline and Yes posterior oropharynx abnormal (Erythema) Eyes General: appearance normal, both eyes and all related structures Neck Neck: Yes normal visual inspection Resp Other: Speaking with a hoarse voice Effort & Inspection: normal respiratory effort, able to speak in complete sentences, Actively coughing, no respiratory distress, not tachypneic, no tripod positioning and no use of accessory muscles Auscultation: clear to auscultation bilaterally Cardio Jugular venous distension: no JVD Rate: regular rate Rhythm: regular rhythm Heart sounds: S1 normal heart sound present, S2 normal heart sound present, no click, no gallops, no murmurs and no rubs Skin General skin exam: no rashes or lesions noted, elasticity normal and turgor normal Neuro General: patient oriented x3 Extrem General: Yes normal to inspection and Yes no clubbing, cyanosis or edema Results AMB Rapid Strep AMB Rapid Strep Negative Last Edit by LANE Laboy on 02/12/24 09:51 Assessment & Plan Assessment & Plan (1) Laryngitis: Code(s): J04.0 - Acute laryngitis Plan: Viral swab obtained to rule out Covid, Influenza, and RSV based on symptoms. Advised mask wearing while symptomatic and quarantine per current CDC guidelines. Reviewed at home support methods including hydration, humidification, vix vapor rub, sinus rinse, and otc treatment options. Advised follow up with worsening symptoms such as dyspnea at rest, which would require emergent evaluation. Plan See above for full details and plan. Orders: Orders AMB Rapid Strep Screen Today Z13.9 - Encounter for screening, unspecified SARS-CoV2/FLU/RSV Today J06.9 - Acute upper respiratory infection, unspecified Coding Level of Care Code Est Pt Level 3 (23554) Diagnoses Laryngitis J04.0
[2024-02-12 09:27] VITALS: BP 126/80; PULSE 76; TEMP 36.7; O2SAT 98
== END 2024-02-12 09:49 | disposition home or self-care (01) ==
PROVIDERS: PCP Physician Assistant; Visit Provider Registered Nurse
DX: Z13.9 Encounter for screening, unspecified (principal); J04.0 Acute laryngitis

== ENCOUNTER 2024-04-07 21:25 | Emergency (ER) | payer OTHER, SELFPAY ==
[2024-04-07 21:35] VITALS: BP 134/56; PULSE 68; RESP 20; TEMP 36.6; O2SAT 100; BMI 26.9
--- OUTSIDE RECORDS SUMMARY | 2024-04-07 22:34 | XMS_ITS | Data Portability ---
Author Organization [facility] Medical Kenzie Fareed luong, [employer] Address [address] [place] [address] Assessment Encounter Date Assessment Date Assessment LastModified by Organization Details LastModified Time 09/16/2016 09/16/2016 Assessment: 16 yo F here today to establish and for physical -- pt reports she just started getting migraines the past month. Pt reports she had one last week which was terrible where she felt dizzy, nausea, and pain was 10/10, has pain b/l temples -- pt has fiorcet from previous DrMaría for cramps but pt reports it has helped her JAIN -- Denies photo/phonophob ia, , denies vomiting, LOC, head trauma, numbness/parest hesia, weakness. Pt does report she has had very heavy periods recently Pt reports she has a migraine now but it was not as bad as last week --- rates JAIN now 7/10 -- has had on and off for 3 days c/o acne since age of 11 -- tried creams w/ no relief -- wants referral Asthma -- pt only uses ventolin when she is sick/upset about something -- does not use qvar Plan: Migraine: UTD eye exam, check full b/w + ESR -- pt educated if sx worsen or she develops neuro sx to go to ER. Pt does not appear to be in any distress in office. Acne: Derm referral F/U 2 weeks Not available 09/16/2016 11:22:16 09/30/2016 09/30/2016 Assessment: 16 yo F here today for lab results --- pt reports she hasnt had any headaches this week or a headache today. These migraines are new for pt -- started at the end of the school year and has continued through summer -- sometimes does wake pt up in the middle of the night and wakes up with them. Denies LOC, aura. Plan: Vit D: pt to start 50,000 q week x 12 weeks and recheck vit d b/w in 3 months Migraine: fiorcet rx, MRI brain Not available 09/30/2016 10:07:46 05/01/2017 05/01/2017 Assessment: 17 yo F no significant pmhx -c/o acne -- worse with period + stressed out -still getting migraines -- 2x a week -- started over the summer -- (+) photophobia, phonophobia, dizziness -c/o constipation -- has seen Dr. Wallace previously -- 2 years ago -- had colonoscopy which was normal -- can be up 3-7 days not going to the bathroom -- has been going on since she was 14 -denies nausea, vomiting, numbness/parest hesia, vision changes, STD bw Plan: -check b/w -discussed skin regiment -- start epidou QHS + moisturizer -increase fiber in diet -- trial linzess -- gave coupon card -- if not covered pt to use docusate + miralax + also gave samples of metamucil -brain MRI + fiorcet rx -- use only as needed Not available 05/01/2017 13:08:48 Plan of Treatment Reminders Order Date Submit Date Provider Last Modified By Organization Details Last Modified Time Details Appointments None recorded. Lab urinalysis , complete [address] [facility] (Laboratory), [address], [place], [address], 8 06:35:59 vitamin D, 25-hydroxy , total, serum 2017 018 SHERYL Not available 8 10:33:53 CMP, serum or plasma 2017 018 SHERYL Not available 8 20:33:34 TSH, serum or plasma 2017 018 SHERYL Not available 8 10:33:52 CBC 2017 018 SHERYL Not available 8 14:47:50 lipid panel, serum 2017 018 SHERYL Not available 8 20:33:39 magnesium, serum or plasma 2017 018 SHERYL Not available 8 20:33:37 homocystei ne, blood 2017 018 SHERYL Not available 8 18:11:38 vitamin B12, serum 2017 018 SHERYL Not available 8 10:33:51 HbA1c (hemoglobi n A1c), blood 2016 017 SHERYL Not available 7 20:40:27 CMP, serum or plasma 2016 017 SHERYL Not available 7 19:26:42 TSH, serum or plasma 2016 017 SHERYL Not available 7 19:56:33 T3, total, serum 2016 017 SHERYL Not available 7 19:56:34 T4, free, serum 2016 017 SHERYL Not available 7 19:56:35 CBC 2016 017 SHERYL Not available 7 19:26:40 lipid panel, serum 2016 017 SHERYL Not available 7 19:26:44 vitamin B12, serum 2016 017 SHERYL Not available 7 19:56:31 folate, serum 2016 017 SHERYL Not available 7 19:56:32 magnesium, serum or plasma 2016 017 SHERYL Not available 7 19:26:45 vitamin D, 25-hydroxy , total, serum 2016 017 SHERYL Not available 7 19:56:31 Referral dermatolog ist referral 2017 018 [email or web address] Anup Cavazos MD, [address] [facility], [address], [place], [address], 8 09:16:08 dermatolog ist referral 2016 017 [email or web address] Altagracia Forrester MD, [address] [facility] [address], [place], [address], 7 14:37:21 Procedures None recorded. Surgeries None recorded. Imaging MRI, brain + brain stem, w/wo contrast 2017 018 [facility] (Imaging), [address] [place], [address], 8 11:48:22 MRI, brain + brain stem, w/wo contrast 2016 017 [email or web address] [facility] (Imaging), [address] [place], [address], 7 09:35:29 Medication Orders docusate sodium 100 mg capsule 2017 018 [facility], [address], [place], [address], 8 12:53:53 Miralax 17 gram oral powder packet 2017 018 [facility], [address], [place], [address], 8 12:54:07 Linzess 72 mcg capsule 2017 018 [facility], [address], [place], [address], 8 12:56:22 butalbital -acetamino phen-caffe ine 50 mg-300 mg-40 mg capsule 2017 018 [email or web address] [facility], [address], [place], [address], 8 13:09:33 adapalene 0.1 %-benzoyl peroxide 2.5 % topical gel with pump 2017 018 [facility], [address], [place], [address], 8 12:54:07 cholecalci ferol (vitamin D3) 1,250 mcg (50,000 unit) capsule 2016 017 [email or web address] [facility], [address], [place], [address], 8 12:08:17 butalbital -acetamino phen-caffe ine 50 mg-325 mg-40 mg capsule 2016 017 [email or web address] [facility], [address] [place], [address], 8 12:08:14 Patient TargetsNo targets recorded. Patient Instructions Encounter Date Encounter Id Patient Instructions Last Modified By Organization Details Last Modified Time 09/16/2016 [id number] migraine headach e: care instructions [email or web address] Not available 09/16/2016 17:40:33 The patient diagnosis, treatment and medicines were discussed, including side effects. The patient was provided with appropriate answers, was given appropriate prescriptions and next appointment as needed. No further questions from the patient. Not available 09/16/2016 11:13:35 09/30/2016 [id number] The patient diagnosis, treatment and medicines were discussed, including side effects. The patient was provided with appropriate answers, was given appropriate prescriptions and next appointment as needed. No further questions from the patient. Not available 09/30/2016 09:57:31 05/01/2017 [id number] acne in teens: care instructions Not available 05/01/2017 12:50:33 The patient diagnosis, treatment and medicines were discussed, including side effects. The patient was provided with appropriate answers, was given appropriate prescriptions and next appointment as needed. No further questions from the patient. Not available 05/01/2017 12:53:18 Reason for Referral Goodwill Representative Referral for A cne Referring Physician: Maura Bender, Physician Production Tester, Encounter Date: 09/16/2016 Goodwill Representative Referral for A cne Referring Physician: Maura Bender, Physician Production Tester, Encounter Date: 05/01/2017 Results Created Date Observation Date Name Description Value Unit Range Abnormal Flag Note LastModifiedBy Organization Detail LastModifiedTime 09/17/19 17 09/16/2016 ESR (eryt hrocy te sedim entat ion rate) , blood sed rate 5 mm/HR 0-20 normal Not Available [facility] (Lab) [address], [place], [address], 09/17/2016 03:23:54 09/17/19 17 09/16/2016 CBC WBC 6.6 10*3/ uL 3.5 - 10.0 Not Available [facility] [address] [facility] [address], [place], [address], 09/17/2016 19:26:40 09/17/19 17 09/16/2016 CBC RBC 4.67 10*6/ uL 3.9 - 5.10 Not Available [facility] [address] [facility] [address], [place], [address], 09/17/2016 19:26:40 09/17/19 17 09/16/2016 CBC HGB 13.6 g/dL 12.0 - 15.0 Not Available [facility] [address] [facility] [address], [place], [address], 09/17/2016 19:26:40 09/17/19 17 09/16/2016 CBC HCT 40.9 % 37.0 - 45.0 Not Available [facility] [address], [place], [address], 09/17/2016 19:26:40 09/17/19 17 09/16/2016 CBC MCV 88.0 fL 83 - 100 Not Available [facility] [address], [place], [address], 09/17/2016 19:26:40 09/17/19 17 09/16/2016 CBC MCH 29.1 pg 26.0 - 34.0 Not Available [facility] [address] [facility] [address] [address], [place], [address], 09/17/2016 19:26:40 09/17/19 17 09/16/2016 CBC MCHC 33.2 g/dL 32.0 - 35 Not Available [facility] [address] [facility] [address] [address], [place], [address], 09/17/2016 19:26:40 09/17/19 17 09/16/2016 CBC RDW 13.3 % 12.0 - 16.0 Not Available [facility] [address] [facility] [address] [address], [place], [address], 09/17/2016 19:26:40 09/17/19 17 09/16/2016 CBC plt 281 10*3/ uL 145 - 355 Not Available [facility] [address] [facility] [address] [address], [place], [address], 09/17/2016 19:26:40 09/17/19 17 09/16/2016 CBC MPV 7.8 fL 7.3 - 10.0 Not Available [facility] [address] [facility] [address] [address], [place], [address], 09/17/2016 19:26:40 09/17/19 17 09/16/2016 CBC gr% 32.8 % 49 - 79 low Not Available [facility] [address] [facility] [address] [address], [place], [address], 09/17/2016 19:26:40 09/17/19 17 09/16/2016 CBC gr# 2.2 # 1.1 - 6.0 Not Available [facility] [address] [facility] [address], [place], [address], 09/17/2016 19:26:40 09/17/19 17 09/16/2016 CBC MO% 17.1 % 2.0 - 6.0 high Not Available [facility] [address] [facility] [address] [facility] [address], [place], [address], 09/17/2016 19:26:40 09/17/19 17 09/16/2016 CBC MO# 1.1 # 0.3 - 1.0 high Not Available [facility] [address] [facility] [address] [facility] [address], [place], [address], 09/17/2016 19:26:40 09/17/19 17 09/16/2016 CBC ly% 50.1 % 19.0 - 47.0 high Not Available [facility] [address] [facility] [address] [facility] [address], [place], [address], 09/17/2016 19:26:40 09/17/19 17 09/16/2016 CBC ly# 3.3 # 0.7 - 3.7 Not Available [facility] [address] [facility] [address], [place], [address], 09/17/2016 19:26:40 09/17/19 17 09/16/2016 CMP, serum or plasm a sodium 140 mmol/ L 136 - 145 Not Available [facility] [address] [facility] [address], [place], [address], 09/17/2016 19:26:42 09/17/19 17 09/16/2016 CMP, serum or plasm a potassium 3.7 mmol/ L 3.5 - 5.1 Not Available [facility] [address] [facility] [address] [facility] [address], [place], [address], 09/17/2016 19:26:42 09/17/19 17 09/16/2016 CMP, serum or plasm a chloride 104 mmol/ L 98 - 107 Not Available [facility] [address] [facility] [address] [facility] [address], [place], [address], 09/17/2016 19:26:42 09/17/19 17 09/16/2016 CMP, serum or plasm a carbon dioxide 26 mmol/ L 23 - 31 Not Available [facility] [address] [facility] [address] [facility] [address], [place], [address], 09/17/2016 19:26:42 09/17/19 17 09/16/2016 CMP, serum or plasm a anion gap 13.7 7.0 - 34.0 Not Available [facility] [address] [facility] [address], [place], [address], 09/17/2016 19:26:42 09/17/19 17 09/16/2016 CMP, serum or plasm a glucose 79 mg/dL 74 - 106 Not Available [facility] [address] [facility] [address] [facility] [address], [place], [address], 09/17/2016 19:26:42 09/17/19 17 09/16/2016 CMP, serum or plasm a BUN 9.5 mg/dL 6 - 20 Not Available [facility] [address] [facility] [address], [place], [address], 09/17/2016 19:26:42 09/17/19 17 09/16/2016 CMP, serum or plasm a creatinine 0.9 mg/dL 0.5 - 1.2 Not Available [facility] [address] [facility] [address] [facility] [address], [place], [address], 09/17/2016 19:26:42 09/17/19 17 09/16/2016 CMP, serum or plasm a calcium 10.0 mg/dL 8.4 - 10.5 Not Available [facility] [address] [facility] [address], [place], [address], 09/17/2016 19:26:42 09/17/1909/16/2016 CMP, serum or plasm a total protein 7.5 g/dL 6.4 - 8.3 Not Available [facility] [address] [facility] [address] [facility] [address], [place], [address], 09/17/2016 19:26:42 09/17/1909/16/2016 CMP, serum or plasm a albumin 4.5 g/dL 3.5 - 4.8 Not Available [facility] [address] [facility] [address] [facility] [address], [place], [address], 09/17/2016 19:26:42 09/17/19 17 09/16/2016 CMP, serum or plasm a globulin 3.0 g/dL 2.3 - 3.5 Not Available [facility] [address] [facility] [address], [place], [address], 09/17/2016 19:26:42 09/17/19 17 09/16/2016 CMP, serum or plasm a A/G 1.5 # 9 - 56 low Not Available [facility] [address] [facility] [address], [place], [address], 09/17/2016 19:26:42 09/17/19 17 09/16/2016 CMP, serum or plasm a alk phos 68 U/L 42 - 141 Not Available [facility] [address] [facility] [address] [facility] [address], [place], [address], 09/17/2016 19:26:42 09/17/19 17 09/16/2016 CMP, serum or plasm a ALT 11 U/L 7 - 34 Not Available [facility] [address] [facility] [address] [facility] [address], [place], [address], 09/17/2016 19:26:42 09/17/19 17 09/16/2016 CMP, serum or plasm a AST 16 U/L 7 - 31 Not Available [facility] [address] [facility] [address] [facility] [address], [place], [address], 09/17/2016 19:26:42 09/17/1909/16/2016 CMP, serum or plasm a total bilirubin 0.6 mg/dL 0 - 1.2 Not Available [facility] [address] [facility] [address] [facility] [address], [place], [address], 09/17/2016 19:26:42 09/17/19 17 09/16/2016 CMP, serum or plasm a age 16 years Not Available [facility] [address] [facility] [address] [facility] [address], [place], [address], 09/17/2016 19:26:42 09/17/19 17 09/16/2016 CMP, serum or plasm a sex multiplier 0.742 # Not Available [facility] [address], [place], [address], 09/17/2016 19:26:42 09/17/19 17 09/16/2016 CMP, serum or plasm a eGFR aa 99 mL/mi n/1.7 3 60 - 300 Not Available [facility] [address], [place], [address], 09/17/2016 19:26:42 09/17/19 17 09/16/2016 CMP, serum or plasm a eGFR nonaa 82 mL/mi n/1.7 3 60 - 300 Not Available [facility] [address], [place], [address], 09/17/2016 19:26:42 09/17/19 17 09/16/2016 lipid panel , serum cholesterol 189 mg/dL 100 - 199 Not Available [facility] [address], [place], [address], 09/17/2016 19:26:44 09/17/1909/16/2016 lipid panel , serum triglyceride 88 mg/dL 0 - 150 Not Available [facility] [address], [place], [address], 09/17/2016 19:26:44 09/17/1909/16/2016 lipid panel , serum HDL 45 mg/dL 30 - 85 Not Available [facility] [address], [place], [address], 09/17/2016 19:26:44 09/17/1909/16/2016 lipid panel , serum LDL-calculat ed 126 mg/dL 0 - 100 high Not Available [facility] [address], [place], [address], 09/17/2016 19:26:44 09/17/1909/16/2016 lipid panel , serum C/H 4.2 # 1.0 - 4.0 high Not Available [facility] [address] [facility] [address], [place], [address], 09/17/2016 19:26:44 09/17/19 17 09/16/2016 magne sium, serum or plasm a magnesium 2.4 mg/dL 1.7 - 2.8 Not Available [facility] [address] [facility] [address] [facility] [address], [place], [address], 09/17/2016 19:26:45 09/17/19 17 09/16/2016 vitam in D, 25-hy droxy , total , serum vitamin D 24.9 NG/dL 31 - 100 low Not Available [facility] [address] [facility] [address], [place], [address], 09/18/2016 19:56:31 09/17/19 17 09/16/2016 vitam in B12, serum vitamin B12 662 pg/mL 230 - 1050 Not Available [facility] [address] [facility] [address], [place], [address], 09/18/2016 19:56:31 09/17/19 17 09/16/2016 folat e, serum folate >20.00 0 NG/mL 3 - 16 high Not Available [facility] [address] [facility] [address], [place], [address], 09/18/2016 19:56:32 09/17/19 17 09/16/2016 TSH, serum or plasm a TSH 1.5 mIU/L 0.5 - 6.8 Not Available [facility] [address] [facility] [address], [place], [address], 09/18/2016 19:56:33 09/17/19 17 09/16/2016 T3, total , serum TT3 1.5 NG/mL 0.7 - 1.7 Not Available [facility] [address] [facility] [address] [facility] [address], [place], [address], 09/18/2016 19:56:34 09/17/19 17 09/16/2016 T4, free, serum free T4 .9 NG/dL 0.75 - 1.54 Not Available [facility] [address], [place], [address], 09/18/2016 19:56:35 09/17/19 17 09/16/2016 HbA1c (hemo globi n A1c), blood hemoglobin A1C 5.5 % 4 - 6 Not Available [facility] [address], [place], [address], 09/20/2016 20:40:27 05/02/19 18 05/01/2017 urina lysis , compl ete color Yellow Not Available [facility] (Lab) [address], [place], [address], 05/02/2017 06:35:58 05/02/19 18 05/01/2017 urina lysis , compl ete clarity Clear Not Available [facility] (Lab) [address] [place], [address], 05/02/2017 06:35:58 05/02/19 18 05/01/2017 urina lysis , compl ete bilirubin Negati ve negati ve normal Not Available [facility] (Lab) [address] [place], [address], 05/02/2017 06:35:58 05/02/19 18 05/01/2017 urina lysis , compl ete urobilinogen <2.0 mg/dL 0.2-1. 9 normal Not Available [facility] (Lab) [address] [place], [address], 05/02/2017 06:35:58 05/02/19 18 05/01/2017 urina lysis , compl ete ketones Negati ve mg/dL negati ve normal Not Available [facility] (Lab) [address] [place], [address], 05/02/2017 06:35:58 05/02/19 18 05/01/2017 urina lysis , compl ete glucose Negati ve mg/dL negati ve normal Not Available [facility] (Lab) [address], [place], [address], 05/02/2017 06:35:58 05/02/19 18 05/01/2017 urina lysis , compl ete protein 30 mg/dL negati ve abnormal Not Available [facility] (Lab) [address], [place], [address], 05/02/2017 06:35:58 05/02/19 18 05/01/2017 urina lysis , compl ete blood Large negati ve abnormal Not Available [facility] (Lab) [address], [place], [address], 05/02/2017 06:35:58 05/02/19 18 05/01/2017 urina lysis , compl ete pH 7.0 5.0-9. 0 normal Not Available [facility] (Lab) [address], [place], [address], 05/02/2017 06:35:58 05/02/19 18 05/01/2017 urina lysis , compl ete nitrite Negati ve negati ve normal Not Available [facility] (Lab) [address], [place], [address], 05/02/2017 06:35:58 05/02/19 18 05/01/2017 urina lysis , compl ete leuk esterase Negati ve negati ve normal Not Available [facility] (Lab) [address], [place], [address], 05/02/2017 06:35:58 05/02/19 18 05/01/2017 urina lysis , compl ete specific gravity 1.019 1.001- 1.035 normal Not Available [facility] (Lab) [address] [place], [address], 05/02/2017 06:35:58 05/02/19 18 05/01/2017 urina lysis , compl ete red blood cell 0-2 #/hpf none,0 -2 normal Not Available [facility] (Lab) [address], [place], [address], 05/02/2017 06:35:58 05/02/19 18 05/01/2017 urina lysis , compl ete white blood cell None #/hpf none,0 -5 normal Not Available [facility] (Lab) [address], [place], [address], 05/02/2017 06:35:58 05/02/19 18 05/01/2017 urina lysis , compl ete bacteria None /hpf none normal Not Available [facility] (Lab) [address], [place], [address], 05/02/2017 06:35:58 05/02/19 18 05/01/2017 urina lysis , compl ete mucus Trace /hpf none,t race,f ew normal Not Available [facility] (Lab) [address], [place], [address], 05/02/2017 06:35:58 05/02/19 18 05/01/2017 urina lysis , compl ete squam epi cells Trace /hpf none abnormal Not Available [facility] (Lab) [address], [place], [address], 05/02/2017 06:35:58 05/02/19 18 05/01/2017 homoc ystei ne, blood homocysteine 9.0 umol/ L 6.6 - 17.8 Not Available [facility] [address] [facility] [address], [place], [address], 05/07/2017 18:11:38 05/03/19 18 05/02/2017 CBC WBC 7.9 10*3/ uL 3.5 - 10.0 Not Available [facility] [address], [place], [address], 05/02/2017 14:47:50 05/03/19 18 05/02/2017 CBC RBC 4.74 10*6/ uL 3.9 - 5.10 Not Available [facility] [address] [facility] [address], [place], [address], 05/02/2017 14:47:50 05/03/19 18 05/02/2017 CBC HGB 14.5 g/dL 12.0 - 15.0 Not Available [facility] [address] [facility] [address], [place], [address], 05/02/2017 14:47:50 05/03/19 18 05/02/2017 CBC HCT 43.5 % 37.0 - 45.0 Not Available [facility] [address] [facility] [address] [facility] [address], [place], [address], 05/02/2017 14:47:50 05/03/19 18 05/02/2017 CBC MCV 92.0 fL 83 - 100 Not Available [facility] [address] [facility] [address] [facility] [address], [place], [address], 05/02/2017 14:47:50 05/03/19 18 05/02/2017 CBC MCH 30.6 pg 26.0 - 34.0 Not Available [facility] [address] [facility] [address], [place], [address], 05/02/2017 14:47:50 05/03/19 18 05/02/2017 CBC MCHC 33.3 g/dL 32.0 - 35 Not Available [facility] [address] [facility] [address] [facility] [address], [place], [address], 05/02/2017 14:47:50 05/03/19 18 05/02/2017 CBC RDW 13.6 % 12.0 - 16.0 Not Available [facility] [address] [facility] [address], [place], [address], 05/02/2017 14:47:50 05/03/19 18 05/02/2017 CBC plt 297 10*3/ uL 145 - 355 Not Available [facility] [address] [facility] [address], [place], [address], 05/02/2017 14:47:50 05/03/19 18 05/02/2017 CBC MPV 7.4 fL 7.3 - 10.0 Not Available [facility] [address] [facility] [address] [facility] [address], [place], [address], 05/02/2017 14:47:50 05/03/19 18 05/02/2017 CBC gr% 61.6 % 49 - 79 Not Available [facility] [address] [facility] [address] [facility] [address], [place], [address], 05/02/2017 14:47:50 05/03/19 18 05/02/2017 CBC gr# 5.0 # 1.1 - 6.0 Not Available [facility] [address] [facility] [address], [place], [address], 05/02/2017 14:47:50 05/03/19 18 05/02/2017 CBC MO% 5.9 % 2.0 - 6.0 Not Available [facility] [address] [facility] [address], [place], [address], 05/02/2017 14:47:50 05/03/19 18 05/02/2017 CBC MO# 0.4 # 0.3 - 1.0 Not Available [facility] [address] [facility] [address], [place], [address], 05/02/2017 14:47:50 05/03/19 18 05/02/2017 CBC ly% 32.5 % 19.0 - 47.0 Not Available [facility] [address] [facility] [address], [place], [address], 05/02/2017 14:47:50 05/03/19 18 05/02/2017 CBC ly# 2.5 # 0.7 - 3.7 Not Available [facility] [address] [facility] [address], [place], [address], 05/02/2017 14:47:50 05/03/19 18 05/02/2017 CMP, serum or plasm a sodium 140 mmol/ L 136 - 145 Not Available [facility] [address] [facility] [address], [place], [address], 05/06/2017 20:33:34 05/03/19 18 05/02/2017 CMP, serum or plasm a potassium 4.3 mmol/ L 3.5 - 5.1 Not Available [facility] [address] [facility] [address], [place], [address], 05/06/2017 20:33:34 05/03/19 18 05/02/2017 CMP, serum or plasm a chloride 103 mmol/ L 98 - 107 Not Available [facility] [address] [facility] [address], [place], [address], 05/06/2017 20:33:34 05/03/19 18 05/02/2017 CMP, serum or plasm a carbon dioxide 29 mmol/ L 23 - 31 Not Available [facility] [address] [facility] [address], [place], [address], 05/06/2017 20:33:34 05/03/19 18 05/02/2017 CMP, serum or plasm a anion gap 12.3 7.0 - 34.0 Not Available [facility] [address] [facility] [address], [place], [address], 05/06/2017 20:33:34 05/03/19 18 05/02/2017 CMP, serum or plasm a glucose 80 mg/dL 74 - 106 Not Available [facility] [address] [facility] [address], [place], [address], 05/06/2017 20:33:34 05/03/19 18 05/02/2017 CMP, serum or plasm a BUN 10.4 mg/dL 6 - 20 Not Available [facility] [address] [facility] [address], [place], [address], 05/06/2017 20:33:34 05/03/19 18 05/02/2017 CMP, serum or plasm a creatinine 0.9 mg/dL 0.5 - 1.2 Not Available [facility] [address] [facility] [address], [place], [address], 05/06/2017 20:33:34 05/03/19 18 05/02/2017 CMP, serum or plasm a calcium 9.3 mg/dL 8.4 - 10.5 Not Available [facility] [address] [facility] [address], [place], [address], 05/06/2017 20:33:34 05/03/19 18 05/02/2017 CMP, serum or plasm a total protein 7.2 g/dL 6.4 - 8.3 Not Available [facility] [address] [facility] [address], [place], [address], 05/06/2017 20:33:34 05/03/19 18 05/02/2017 CMP, serum or plasm a albumin 4.5 g/dL 3.5 - 4.8 Not Available [facility] [address] [facility] [address], [place], [address], 05/06/2017 20:33:34 05/03/19 18 05/02/2017 CMP, serum or plasm a globulin 2.7 g/dL 2.3 - 3.5 Not Available [facility] [address] [facility] [address], [place], [address], 05/06/2017 20:33:34 05/03/19 18 05/02/2017 CMP, serum or plasm a A/G 1.7 # 9 - 56 low Not Available [facility] [address] [facility] [address], [place], [address], 05/06/2017 20:33:34 05/03/19 18 05/02/2017 CMP, serum or plasm a alk phos 89 U/L 42 - 141 Not Available [facility] [address] [facility] [address], [place], [address], 05/06/2017 20:33:34 05/03/19 18 05/02/2017 CMP, serum or plasm a ALT 15 U/L 7 - 34 Not Available [facility] [address] [facility] [address], [place], [address], 05/06/2017 20:33:34 05/03/19 18 05/02/2017 CMP, serum or plasm a AST 15 U/L 7 - 31 Not Available [facility] [address] [facility] [address], [place], [address], 05/06/2017 20:33:34 05/03/19 18 05/02/2017 CMP, serum or plasm a total bilirubin 0.4 mg/dL 0 - 1.2 Not Available [facility] [address] [facility] [address], [place], [address], 05/06/2017 20:33:34 05/03/19 18 05/02/2017 CMP, serum or plasm a age 17 years Not Available [facility] [address] [facility] [address], [place], [address], 05/06/2017 20:33:34 05/03/19 18 05/02/2017 CMP, serum or plasm a sex multiplier 0.742 # Not Available [facility] [address] [facility] [address], [place], [address], 05/06/2017 20:33:34 05/03/19 18 05/02/2017 magne sium, serum or plasm a magnesium 2.1 mg/dL 1.7 - 2.8 Not Available [facility] [address] [facility] [address], [place], [address], 05/06/2017 20:33:36 05/03/19 18 05/02/2017 lipid panel , serum cholesterol 181 mg/dL 100 - 199 Not Available [facility] [address] [facility] [address], [place], [address], 05/06/2017 20:33:39 05/03/19 18 05/02/2017 lipid panel , serum triglyceride 146 mg/dL 0 - 150 Not Available [facility] [address] [facility] [address], [place], [address], 05/06/2017 20:33:39 05/03/19 18 05/02/2017 lipid panel , serum HDL 45 mg/dL 30 - 85 Not Available [facility] [address] [facility] [address], [place], [address], 05/06/2017 20:33:39 05/03/19 18 05/02/2017 lipid panel , serum LDL-calculat ed 107 mg/dL 0 - 100 high Not Available [facility] [address] [facility] [address], [place], [address], 05/06/2017 20:33:39 05/03/19 18 05/02/2017 lipid panel , serum C/H 4.0 # 1.0 - 4.0 Not Available [facility] [address], [place], [address], 05/06/2017 20:33:39 05/03/19 18 05/02/2017 vitam in B12, serum vitamin B12 635 pg/mL 230 - 1050 Not Available [facility] [address] [facility] [address], [place], [address], 05/09/2017 10:33:51 05/03/19 18 05/02/2017 TSH, serum or plasm a TSH .5 mIU/L 0.5 - 6.8 Not Available [facility] [address], [place], [address], 05/09/2017 10:33:52 05/03/19 18 05/02/2017 vitam in D, 25-hy droxy , total , serum vitamin D 16.8 NG/dL 31 - 100 critical low Not Available [facility] [address] [facility] [address], [place], [address], 05/09/2017 10:33:53 Result Notes None recorded. Problems No Known Problems Medical Equipment None Reported. Allergies Allergen ID Allergen Name Allergen Category Reaction Reaction Severity Criticality Documentation Date Start Date Code Code System Note Provider Name and Address Organization Details Recorded Time 5528 Product michelein g penicilli n (product) medicatio n Not available Not available Not available 09/16/2016 [address]331 8001 SNOMED Not Available Not Available Not Available 9871 aspirin medicatio n Not available Not available Not available 09/16/2016 1191 RxNorm Not Available Not Available Not Available Medications Name Sig Start Date Stop Date Status Note LastModified by Organization Details LastModified Time Miralax 17 gram oral powder packet Take 1 packet every day by oral route. 2017 active Not Available Not Available Not Avai lable Qvar 80 mcg/actuati on Metered Aerosol oral inhaler 05/01 completed Not Available Not Available Not Available butalbital- acetaminoph en-caffeine 50 mg-325 mg-40 mg capsule Take 1 capsule every 4 hours by oral route as needed. 05/01 completed Not Available Not Available Not Available azithromyci n 250 mg tablet 09/16 completed Not Available Not Available Not Available doxycycline monohydrate 100 mg capsule 09/16 completed Not Available Not Available Not Available ibuprofen 400 mg tablet 09/16 completed Not Available Not Available Not Available docusate sodium 100 mg capsule Take 1 capsule every day by oral route. 2017 active Not Available Not Available Not Avai lable montelukast 10 mg tablet 09/16 completed Not Available Not Available Not Available polyethylen e glycol 3350 17 gram/dose oral powder 09/16 completed Not Available Not Available Not Available clotrimazol e 1 % topical cream 09/16 completed Not Available Not Available Not Available Ventolin HFA 90 mcg/actuati on aerosol inhaler 05/01 completed Not Available Not Available Not Available cholecalcif brynn (vitamin D3) 1,250 mcg (50,000 unit) capsule Take 1 capsule every week by oral route. 05/01 completed Not Available Not Available Not Available butalbital- acetaminoph en-caffeine 50 mg-300 mg-40 mg capsule Take 1 capsule every 4 hours by oral route as needed. 2017 active Not Available Not Available Not Avai lable Lo Loestrin Fe 1 mg-10 mcg (24)/10 mcg (2) tablet 09/16 completed Not Available Not Available Not Available EpiPen 2-Darrel 0.3 mg/0.3 mL injection, auto-inject or 05/01 completed Not Available Not Available Not Available adapalene 0.1 %-benzoyl peroxide 2.5 % topical gel with pump APPLY A THIN LAYER TO THE AFFECTED AREA(S) OF THE FACE AND/OR UPPER TRUNK AFTER WASHING BY TOPICAL ROUTE ONCE DAILY 2017 active Not Available Not Available Not Avai lable Linzess 72 mcg capsule Take 1 capsule(s ) every day by oral route. 2017 active Not Available Not Available Not Avai lable Vitals Date Recorded Body height Heart rate Body mass index (BMI) Body weight Systolic blood pressure Diastolic blood pressure Provider Name and Address Organization Details Last Updated DateTime 7 160.02 cm 75 /min 28.7 kg/m2 35697.9 6 g 116 mm[Hg] 81 mm[Hg] Eleanor Garay [facility] 7 10:55:43 Date Recorded Body height Oxygen saturation Oxygen saturation in Arterial blood by Pulse oximetry Heart rate Body temperature Body mass index (BMI) Body weight Systolic blood pressure Diastolic blood pressure Provider Name and Address Organization Details Last Updated DateTime 7 160.02 cm 99 % 99 % 77 /min 97.1 [degF] 28.7 kg/m2 85680.9 6 g 113 mm[Hg] 74 mm[Hg] Aurelia Collins [facility] 7 09:53:27 Date Recorded Body height Body temperature Body mass index (BMI) Body weight Oxygen saturation Oxygen saturation in Arterial blood by Pulse oximetry Heart rate Systolic blood pressure Diastolic blood pressure Provider Name and Address Organization Details Last Updated DateTime 8 160.02 cm 95.9 [degF] 28.9 kg/m2 67962.5 6 g 98 % 98 % 92 /min 110 mm[Hg] 74 mm[Hg] Jazmin Heart [facility] 8 12:08:57 Social History Question Answer Notes LastModified by Organizat ion Details LastModified Time Tobacco Smoking Status Never Smoker Eleanor talbert [facility] 09/16/2016 10:52:02 What Is Your Level Of Alcohol Consumption? None Information not available 09/16/2016 How Many Years Have You Consumed Alcohol? 0 Information not available 05/01/2017 Are You Blind Or Do You Have Difficulty Seeing? Yes USES GLASESS Information not available 05/01/2017 What Is Your Level Of Caffeine Consumption? None Information not available 09/16/2016 How Much Tobacco Do You Chew? None Information not available 09/16/2016 Are You Currently Employed? Yes [email or web address] Information not available 05/01/2017 Are You Deaf Or Do You Have Serious Difficulty Hearing? No [email or web address] Information not available 05/01/2017 What Type Of Diet Are You Following? REGULAR Information not available 09/16/2016 Which Illicit Or Recreational Drugs Have You Used? 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 5 [email or web address] Information not available 05/01/2017 On Those Days That You Engage In Moderate To Strenuous Exercise, How Many Minutes, On Average, Do You Exercise? 5 [email or web address] Information not available 05/01/2017 How Hard Is It For You To Pay For The Very Basics Like Food, Housing, Medical Care, And Heating? [id number] [email or web address] Information not available 05/01/2017 Are There Any Guns Present In Your Home? No [email or web address] Information not available 05/01/2017 Hard Of Hearing Or Deaf In One Or Both Ears? No [email or web address] Information not available 05/01/2017 Single Or Multi-level Home/work? Multi Level Home APT [email or web address] Information not available 05/01/2017 Legally Blind In One Or Both Eyes? No [email or web address] Information no t available 05/01/2017 Live Alone Or With Others? With Others [email or web address] Information not available 05/01/2017 Are There Any Behavioral, Verbal Or Physical Signs Of Dental Pain? No Information not available 05/01/2017 Do You Have Swollen, Bleeding, Ulcer, White/red Patches, Redness Under Dentures? No [email or web address] Information not available 05/01/2017 Do You Have Constant Bad Breath? No [email or web address] Information not available 05/01/2017 Do You Have More Than One Broken Tooth Or Roots? No Information not available 05/01/2017 Do You Have Swollen Tongue? No [email or web address] Information not available 05/01/2017 Do You Present Social Anxiety Symptoms Such As Isolation Or Activities Of Independent Living? No [email or web address] Information not available 05/01/2017 Are There Any Household/ Environmental Risks Affecting Your Health? No [email or web address] Information not available 05/01/2017 Is There Any Family History Of Substance Use Such As Drugs Or Alcohol? No [email or web address] Information not available 05/01/2017 Any Family Mental Health History? No Information not available 05/01/2017 Do You Have History Of Mental Health Conditions? No Information not available 05/01/2017 1. Over The Past Two Weeks Have You Ever Zirconia Down, Depressed Or Hopeless? No Information not available 09/16/2016 1. Depressed Mood Most Of The Day, Neraly Everyday? No [email or web address] Information not available 05/01/2017 2. Markedly Diminished Interest Or Pleasure In Almost All Activities Most Of The Day, Nearly Everyday? No Information not available 05/01/2017 2. Over The Past Two Weeks Have You Zirconia No Pleasure Or Interest In Doing Things? No Information not available 09/16/2016 3. Significant Weight Loss Or Weight Gain? Yes WEIGHT GAIN [email or web address] Information not available 05/01/2017 4. Insomnia/ Hypersomnia? Yes [email or web address] Information not available 05/01/2017 5. Psychomotor Agitation/ Retardation? No [email or web address] Information not available 05/01/2017 6. Fatigue (loss Of Energy)? No [email or web address] Information not available 05/01/2017 8. Impaired Concentration (indecisiveness)? No [email or web address] Information no t available 05/01/2017 7. Feelings Of Worthlessness (guilt)? No Information not available 05/01/2017 9. Recurrent Thoughts Of Or Suicide Attempt? No [email or web address] Information not available 05/01/2017 Smoking Assessment 05/01/2017 [email or web address] Information not available 05/01/2017 Drinking Assessment 05/01/2017 [email or web address] Information not available 05/01/2017 Depression Screenin05/01/2017 [email or web address] Information not available 05/01/2017 Have You Ever Zirconia Like You Should Cut Down On Your Drinking?: No Information not available 09/16/2016 Have People Annoyed You By Criticizing Your Drinking?: No Information not available 09/16/2016 Have You Ever Zirconia Bad Or Guilty About Your Drinking?: No Information not available 09/16/2016 Have You Ever Had A Drink First Thing In The Morning To Steady Your Nerves Or To Get Rid Of A Hangover (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 Do You Snore Or Have Been Told That You Snore?: No Information not available 09/16/2016 2. Do You Wake Up Choking Or Gasping?: No Information not available 09/16/2016 3. Excessive Daytime Sleepiness?: No Information not available 09/16/2016 Marital Status Single Informatio n not available 09/16/2016 What Was The Date Of Your Most Recent Tobacco Screening? 05/01/2017 Information not available 09/10/2018 How Many Children Do You Have? 0 [email or web address] Information not available 05/01/2017 What Is Your Relationship Status? Single [email or web address] Information not available 05/01/2017 Seat Belts Used Routinely Yes Information not available 05/01/2017 Are You Sexually Active? No Information not available 09/16/2016 Smoke Alarm In Home Yes [email or web address] Information not available 05/01/2017 At What Age Did You Start Smoking Tobacco? 0 Information not available 09/16/2016 How Much Tobacco Do You Smoke? No Information not available 09/16/2016 General Stress Level Medium [email or web address] Information not available 05/01/2017 Do You Feel Stressed (tense, Restless, Nervous, Or Anxious, Or Unable To Sleep At Night)? [id number] [email or web address] Information not available 05/01/2017 Do You Use Sunscreen Routinely? No [email or web address] Information not available 05/01/2017 How Many Years Have You Smoked Tobacco? 0 Information not available 09/16/2016 Sex: Unknown Functional Status Question Answer Note LastModified by Organizat ion Details LastModified Time Do you have difficulty walking or climbing stairs? No [email or web address] Information not available 05/01/2017 Do you have transportation difficulties? No [email or web address] Information not available 05/01/2017 Do you have difficulty doing errands alone? No [email or web address] Information not available 05/01/2017 Are you able to care for yourself? Yes [email or web address] Information n ot available 05/01/2017 Do you have difficulty dressing or bathing? No [email or web address] Information not available 05/01/2017 What is your exercise level? Occasional Information not available 09/16/2016 Mental Status Question Answer Note LastModified by Organization D etails LastModified Time Do you have difficulty concentrating, remembering or making decisions? No [email or web address] Information no t available 05/01/2017 Family History Relationship Description Onset Age of this Age Resolved Age Notes LastModified by Organization Details LastModified Time Mother Hypertensive disorder [email or web address] Not available 09/16 10:51:57 Medical History Condition Response Coronary Artery Disease N Gout N Other N Blood Diseases N Kidney Stones N Hyperthyroidism N Blood Transfusion N Breast Cancer N mrsa exposure N Hypothyroidism N Depression N COPD N Lung Disease N Defects or Inherited Disease N Developmental or Behavioral Disorders N Breast Problem N Anesthesia Complications N Meniere's disease N Anxiety Disorder N Muscle, Joint, or Bone Problems N Obesity N Vision or Eye Problems N Arthritis N Chronic ear infections N Polyps N Infertility N Mental Disorder N Cancer N Varicosities N Stroke N ADHD N Endometriosis N Bladder or Kidney Problems N High Cholesterol N Liver Disease N Headaches N Fibromyalgia N Kidney Disease N Heart Problems N Ear or Hearing Problems N Hospitalizations N Thyroid Problems N GI Problems N Skin Problems N Eating Disorder N Anemia N Constipation N Mental Illness N Ovarian Cancer N Diabetes N Difficulty swallowing N Bedwetting N Seizures/Epilepsy N Tuberculosis N AIDS/HIV N Congestive Heart Failure (CHF) N Eczema N Diverticulitis N Abuse/Domestic Violence N Nasal polyps N Asthma Y Allergies Y Reflux/GERD N Hepatitis N Heart Disease N Pulmonary Embolism N Pre-Eclampsia N Hypertension N Chicken Pox N Autism Spectrum Disorder (ASD) N Osteoporosis N Thrombophilias N Gynecological History Statement/Question Response STIs/STDs N Sexual Problems? N Age at Menarche 9 Current Control Method None Date of LMP 09/12/2016 Sexually Active? N Post Menopausal Bleeding N Obstetrics History GPAL:G 0 P 0 0 0 0 Past Encounters Encounter ID Performer Location Encounter Start Date Encounter Closed Date Diagnosis/Indication Diagnosis SNOMED-CT Code Diagnosis ICD10 Code Diagnosis Note [id number] Flor Atwood AM [address] [address] 09/16/2016 10:45:07 09/16/2016 11:24:08 Adult health examination 882060562 Z00.00 Acne 13650718 L70.9 Migraine 34962132 G43.90 9 Pure hypercholesterolemia 932693636 E78.00 Cobalamin deficiency 190 995222 E53.8 Hyperglycemia 89953001 R 73.9 [id number] MD [place]ai [place] [address] [place] [address] 09/16/2016 17:23:40 09/16/2016 17:23:49 [id number] Flor Atwood AM [address] [address] 09/30/2016 09:47:27 09/30/2016 10:13:16 Vitamin D deficiency 73579716 E55.9 Migraine 71646897 G43.90 9 Body mass index 25-29 - overweight 764537057 Z68.28 [id number] Flor Atwood AM [address] [address] 05/01/2017 11:17:22 05/01/2017 13:04:28 Body mass index 25-29 - overweight 370187605 Z68.28 Acne 26337542 L70.9 Migraine 63066097 G43.90 9 Constipation 47900791 K5 9.00 [id number] [place] [address] 05/01/2017 18:00:13 05/01/2017 18:01:34 Health Concerns Section Related Observation LastModified by Organization Detai ls LastModified Time None Recorded Concern Status LastModified by Organization Details LastModified Time None Recorded Advance Directives Directive None Recorded Payers Encounter Date Sequence Insurance Name Policy Number Policy Kelsey Covered Member ID Kelsey Member ID Guarantor Name 09/16/2016 1 [facility] (MEDICAID REPLACEMENT - HMO) [id number] Irmary Giovanny [id number] Irmary Giovanny 09/16/2016 1 [facility] (MEDICAID REPLACEMENT - HMO) 4054 Irmary Giovanny [id number] Irmary Giovanny 09/30/2016 1 [facility] (MEDICAID REPLACEMENT - HMO) 4054 Irmary Giovanny [id number] Irmary Giovanny 05/01/2017 1 [facility] (MEDICAID REPLACEMENT - HMO) 4054 Irmary Giovanny [id number] Irmary Giovanny 05/01/2017 1 [facility] (MEDICAID REPLACEMENT - HMO) 4054 Irmary Giovanny [id number] Irmary Giovanny Notes Date Note Type Note Provider Name and Address Organization Details Recorded Time 09/16/2016 text/html Feeling good. Denies any depression or other sxs. Flor talbert [facility] 09/16/2016 11:22:20 09/30/2016 text/html PT IS ACTIVE AND ALERT, PT IS HERE FOR ROUTINE F/U. PT IS ALSO HERE FOR LABS RESULTS FROM 09/16/2016. PT DENIES ANY SXS. PT IS TAKING TYLENOL FOR HEADACHES. PT STATES THAT prescribed HER MEDICATION LAST VISIT, BUT NEVER GOT RECEIVED BY THE PHARMACY. Flor talbert [facility] 09/30/2016 10:15:57 05/01/2017 text/html PT IS ACTIVE AND ALERT. PER PT IS FEELING WELL TODAY. NO NEW PROBLEMS OR COMPLAINTS. Flor talbert [facility] 05/01/2017 13:09:06 OBGyn Episode No OBEpisode recorded.
--- OUTSIDE RECORDS SUMMARY | 2024-04-07 22:34 | XMS_ITS | Clinical Summary ---
Author Organization [facility] Address [address] [place] [address] Care Team Providers Care Automotive Service Advisor Name Role Phone Shari Castellano [facility] Primary Care Provider [phone] Source Comments PLEASE NOTE, if this patient is a minor, it may be UNLAWFUL to discuss sensitive information that is contained in these records (such as FAMILY PLANNING, MENTAL HEALTH or SUBSTANCE ABUSE) with the minor patient's parent or other person without the patient's specific authorization.[facility] Allergies Active Allergy Reactions Criticality Noted Date Comments Aspirin 05/05/2018 Penicillins 05/05/2018 Medications albuterol sulfate 90 mcg/actuation inhalerIndicatio ns:Mild intermittent asthma without complication Inhale 2 Puffs into the lungs every 4 (four) hours as needed for wheezing 18 g 1 9 Active sennosides (SENNA) 8.6 mg tabletIndication s:Slow transit constipation Take 2 Tabs by mouth nightly at bedtime as needed for constipation 90 Tab 2 9 Active benzoyl peroxide (BREVOXYL) 4 % gelIndications:A cne vulgaris Apply to the back daily at night 42.5 g 1 9 Active Active Problems Problem Noted Date Diagnosed Date Mild intermittent asthma without complication Overview (05/05/2018): Per pt Iron deficiency anemia 05/05/2018 Overview (05/05/2018): Per pt Idiopathic hypotension 05/05/2018 Slow transit constipation 05/05/2018 Immunizations Name Administration Dates Next Due Flu, Preservative Free 05/05/2018 HPV 9 (Gardasil) 05/05/2018 PNEUMOCOCCAL POLYSACCHARIDE PPV23 08/12/2018 TDAP 08/12/2018 Family History Medical History Relation Name Comments Heart Problems Father Hypertension Father Heart Problems Maternal Grandfather Hypertension Maternal Grandmother Cancer Mother Hypertension Paternal Grandmother Relation Name Status Comments Brother 1 brother Father Alive Maternal Grandfather Maternal Grandmother Mother Alive Paternal Grandmother Sister 0 sisters Social History Tobacco Use Types Packs/Day Years Used Date Smoking Tobacco: Never Smokeless Tobacco: Never Alcohol Use Standard Drinks/Week Comments No 0 (1 standard drink = 0.6 oz pur e alcohol) Social Connections Answer Date Recorded Social Connections and Isolation 0 10/08/2018 Financial Resource Strain Answer Date R ecorded Financial Resource Strain 0 2018 Stress Answer Date Recorded Stress 0 10/08/2018 Physical Activity Answer Date Recorded Physical Activity 0 10/08/2018 Food Insecurity Answer Date Recorded Food 0 10/08/2018 Transportation Needs Answer Date Record ed Transportation 0 10/08/2018 Housing Stability Answer Date Recorded Housing 0 10/08/2018 Safety and Environment Answer Date Scott rded Safety 0 10/08/2018 Utilities Answer Date Recorded Utilities 0 10/08/2018 Employment Answer Date Recorded Employment 0 10/08/2018 Comments No Sex and Gender Information Value Date Recorded Sex Assigned at Female 05/05/2018 6:35 AM PDT Legal Sex Female 11:39 AM PST Gender Identity Female 05/05/2018 6:35 AM PDT Sexual Orientation Straight 05/05/2018 6: 35 AM PDT 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 Not on file Not on file Last Filed Vital Signs Vital Sign Reading Time Taken Comments Blood Pressure 100/72 08/12/2018 10:08 AM EDT Pulse 93 08/12/2018 10:08 AM EDT Temperature 37.2 ??C (98.9 ??F) 08/12/2018 10:08 AM E DT Respiratory Rate 16 05/05/2018 9:32 AM EDT Oxygen Saturation 99% 08/12/2018 10:08 AM EDT Inhaled Oxygen Concentration - - Weight 69.9 kg (154 lb) 08/12/2018 10:08 AM EDT Height 160 cm (5' 2.99 ) 08/12/2018 10:08 AM EDT Body Mass Index 27.29 08/12/2018 10:08 AM EDT Plan of Treatment Not on file Insurance [employer] Care Teams Automotive Service Advisor Relationship Specialty Start Date End Date Shari Castellano FNP [address] [place] [id number] PCP - General Internal Medicine 12/05/18
[2024-04-07 22:38] LABS: MANUAL DIFF FLAG NO
[2024-04-07 22:39] LABS: Basophils Percent Auto 0.3 % (0-2); Eosinophils Absolute Auto 0.2 X10*3/uL (0.0-0.4); Eosinophils Percent Auto 1.8 % (0-4); Hematocrit 38.6 % (37.0-47.0); Hemoglobin 13.4 g/dl (12.0-16.0); Imm Gran Abs Auto 0.02 X10*3/uL (0.00-0.03); Imm Gran Pct Auto 0.2 % (0.0-0.4); Lymphocytes Absolute Auto 3.3 X10*3/uL (1.2-4.9); Lymphocytes Percent Auto 37.5 % (20-40); Mean Corpuscular HGB Conc 34.7 g/dl (31.0-35.0); Mean Corpuscular Hemoglobin 30.2 pg (27.0-33.0); Mean Corpuscular Volume 86.9 fL (80.0-98.0); Mean Platelet Volume 9.3 fL (9.4-12.3); Monocytes Absolute Auto 0.5 X10*3/uL (0.1-1.2); Monocytes Percent Auto 5.5 % (2-11); Neutrophils Absolute Auto 4.9 x10*3/uL (2.0-8.3); Neutrophils Percent Auto 54.7 % (45-73); Platelet Count 333 X10*3/uL (160-400); Red Blood Count 4.44 X10*6/uL (4.20-5.50); Red Cell Distribution Width 12.9 % (11.0-16.0); White Blood Count 8.9 X10*3/uL (4.8-10.8)
[2024-04-07 22:52] LABS: Alanine Aminotransferase 19 U/L (0-31); Albumin Level 4.2 g/dL (3.5-5.0); Alkaline Phosphatase 65 U/L (39-117); Anion Gap 10 (12-20); Aspartate Amino Transferase 21 U/L (5-31); Bilirubin Total 0.7 mg/dL (0.0-1.0); Blood Urea Nitrogen 11 mg/dL (9-16); Calcium 9.3 mg/dL (8.4-10.2); Carbon Dioxide 27 mmol/L (22-29); Chloride 106 mmol/L (96-108); Creatinine Clr Calc Pharmacy 92.3; Estimated Glomerular Filt Rate > 60; Glucose Random 85 mg/dL (60-115); Potassium 4.1 mmol/L (3.3-5.1); Sodium 139 mmol/L (135-145); Total Protein 7.7 g/dL (6.5-8.0)
[2024-04-07 23:16] LABS: Influenza A PCR NEGATIVE (Negative); Influenza B PCR NEGATIVE (Negative); Resp Syncy Virus RNA Qual PCR NEGATIVE (Negative); SARS COV2 PCR INHOUSE NEGATIVE (Negative)
== END 2024-04-08 05:04 | disposition left against medical advice (07) ==
PROVIDERS: Emergency Provider Emergency Medicine Emergency Medical Services; PCP Physician Assistant
DX: R51.9 Headache, unspecified (principal); Z53.21 Procedure and treatment not carried out due to patient leaving prior to being seen by health care provider
CPT/HCPCS: 0241U; 36415; 80053; 85025; 99281

== ENCOUNTER 2024-05-17 11:26 | Outpatient (AMB) | payer OTHER, SELFPAY ==
[2024-05-17 11:38] VITALS: BP 122/82; BMI 26.9
--- NOTE | 2024-05-17 11:38 | MHC.OFFVIS ---
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 No complaints. 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 Sexual orientation: Straight/Heterosexual Gender identity: Female Cognitive needs: No Hearing needs: No Vision needs: No Female Reproductive History Menstrual Age of Menarche: 9 Date of last menstrual period: 04/25/24 Total pregnancies: 0 Date of last pap smear: 02/26/22 (negative pap smear) Date of Mammogram: 11/30/20 Review of Systems Const All systems reviewed & are unremarkable except as noted in HPI and below Card Reports as per HPI Resp Reports as per HPI GI Reports as per HPI and Reports no additional complaints Reports as per HPI Physical Exam Vital Signs: Last Vital Signs BP 122/82 05/17/24 11:38 BMI result Body Mass Index 26.9 Const General: cooperative, healthy appearing and comfortable Chest Chest palpation & inspection: normal inspection of the chest and normal palpation of entire chest wall Breast/axilla inspection: normal inspection of the breasts and normal inspection of the axillae Breast/axilla palpation: normal palpation of the breasts, normal palpation of the axillae and no axillary lymphadenopathy Resp Effort & Inspection: normal respiratory effort Auscultation: clear to auscultation bilaterally Percussion: percussion normal Cardio Palpation: normal PMI Rate: regular rate Rhythm: regular rhythm Heart sounds: no murmurs and no rubs Peripheral pulses: Peripheral pulses 2+ throughout GI Inspection: Yes normal to inspection Palpation (GI): Soft to palpation, nontender, no guarding, not rigid and No hepatosplenomegaly present Percussion: Yes normal to percussion Auscultation: normal bowel sounds Rectal Exam - Female: deferred General: Yes bladder normal to palpation External Female Exam: No lesion Speculum Exam - Vagina: normal appearance of the vagina, normal palpation, normal vaginal discharge and not erythematous Speculum Exam - Cervix: normal appearance of the cervix and normal palpation Bimanual exam- vagina & uterus: normal bimanual exam, normal palpation, uterine size normal, bladder normal to palpation, consistency normal and normal palpation Bimanual Exam- Adnexa, other: normal adnexae, no masses and no tenderness Assessment & Plan Assessment & Plan (1) Well woman exam: Code(s): Z01.419 - Encounter for gynecological examination (general) (routine) without abnormal findings Category: Medical Plan: Pap smear not indicated this year Counseled the patient about the recommended dietary allowance of 1000 mg of Calcium & 600 IU of vitamin D. The patient was instructed to perform monthly self-breast exams and to schedule an annual exam in a year; All questions answered and the patient verbalized understanding. Instructed the patient to schedule annual exam in a year Coding Level of Care Code Est Pt Prev Care 18-39y([id number]) Diagnoses Well woman exam Z01.419
--- OUTSIDE RECORDS SUMMARY | 2024-05-17 13:06 | XMS_ITS | Clinical Summary ---
Author Organization [facility] Address [address] [place] [address] Care Team Providers Care Server Systems Administrator Name Role Phone Unavailable Primary Care Provider Unavailabl e Social History Tobacco Use Types Packs/Day Years Used Date Smoking Tobacco: Never Assessed Comments Unknown Sex and Gender Information Value Date Recorded Sex Assigned at Not on file Legal Sex Female 2:08 AM EST Gender Identity Not on file Sexual Orientation Not on file Plan of Treatment Health Maintenance Due Date Last Done Comments HPV Vaccines (1 - 3-dose series) 2013 DTaP,Tdap,and Td Vaccines (1 - Tdap) 2017 Hepatitis B Vaccines (1 of 3 - 19+ 3-dose series) 2017 Cervical Cancer Screening: P ap Smear 2019 COVID-19 Vaccine ( - 2023-2 5 season) 2023 Influenza Vaccine (#1) 2023 HIB Vaccines Aged Out No longer eligi ble based on patient's age to complete this topic Hepatitis A Vaccines Aged Out No long er eligible based on patient's age to complete this topic IPV Vaccines Aged Out No longer eligi ble based on patient's age to complete this topic MMR Vaccines Aged Out No longer eligi ble based on patient's age to complete this topic Meningococcal ACWY Vaccine Aged Out N o longer eligible based on patient's age to complete this topic Meningococcal B Vacine Aged Out No lo nger eligible based on patient's age to complete this topic Pneumococcal Vaccine: Pediat rics (0 to 5 Years) and At-Risk Patients (6 to 64 Years) Aged Out No longer eligible b ased on patient's age to complete this topic RSV Immunization Patients Un zachary 20 months Aged Out No longer eligible b ased on patient's age to complete this topic Varicella Vaccines Aged Out No longer eligible based on patient's age to complete this topic
--- OUTSIDE RECORDS SUMMARY | 2024-05-17 13:06 | XMS_ITS | Clinical Summary ---
Author Organization [facility] Address [address] [place] [address] Care Team Providers Care Fruit Picker Name Role Phone Shari Castellano [facility] Primary Care Provider [phone] Source Comments PLEASE NOTE, if this patient [...] hypotension 05/05/2018 Slow transit constipation 05/05/2018 Immunizations Immunization Administration Dates Next Due Flu, Preservative Free [...] on file Insurance [employer] Care Teams Fruit Picker Relationship Specialty Start Date End Date Shari Castellano FNP [address] [place] [id number] PCP - General Internal Medicine 12/05/18
--- OUTSIDE RECORDS SUMMARY | 2024-05-17 13:06 | XMS_ITS | Data Portability ---
Author Organization [facility] Medical Kenzie Fareed luong, [employer] Address [address] [place] [address] Assessment Encounter Date Assessment Date Assessment LastModified [...] recorded. Lab urinalysis , complete 2017 018 [facility] (Laboratory), [address], [place], [address], 8 06:35:59 vitamin D, 25-hydroxy , total, [...] 018 [email or web address] Anup Cavazos MD, [address] [facility], [address], [place], [address], 8 09:16:08 dermatolog ist referral 2016 017 [email or web address] Altagracia Forrester MD, [address] [facility] , [address], [place], [address], 7 14:37:21 Procedures None recorded. Surgeries None recorded. Imaging MRI, brain + brain stem, w/wo contrast 2017 018 [email or web address] [facility] (Imaging), [address] [place], [address], 8 11:48:22 MRI, brain + brain stem, w/wo contrast 2016 017 [email or web address] [facility] (Imaging), [address] [place], [address], 7 09:35:29 Medication Orders docusate sodium 100 mg capsule 2017 018 INTERFACE [facility], [address] [facility], [place], [address], 8 12:53:53 Miralax 17 gram oral powder packet 2017 018 INTERFACE [facility], [address] [facility], [place], [address], 8 12:54:07 Linzess 72 mcg capsule 2017 018 INTERFACE [facility], [address] [facility], [place], [address], 8 12:56:22 butalbital -acetamino phen-caffe ine 50 mg-300 mg-40 mg capsule 2017 018 [email or web address] [facility], [address] [facility], [place], [address], 8 13:09:33 adapalene 0.1 %-benzoyl peroxide 2.5 % topical gel with pump 2017 018 [facility]FACE [facility], [address] [facility], [place], [address], 8 12:54:07 cholecalci ferol (vitamin D3) 1,250 mcg (50,000 unit) capsule 2016 017 [email or web address] [facility], [address] [facility], [place], [address], 8 12:08:17 butalbital -acetamino phen-caffe ine 50 mg-325 mg-40 mg capsule 2016 017 [email or web address] [facility], [address] [place], [address], 8 12:08:14 Patient TargetsNo targets recorded. Patient Instructions Encounter Date Encounter Id Patient Instructions Last Modified By Organization Details Last Modified Time 09/16/2016 [id number] migraine headach e: care instructions [email or web address] Not available 09/16/2016 17:40:33 The patient diagnosis, treatment and medicines were discussed, including side effects. The patient was provided with appropriate answers, was given appropriate prescriptions and next appointment as needed. No further questions from the patient. Not available 09/16/2016 11:13:35 09/30/2016 [id number] The patient diagnosis, treatment and medicines were discussed, including side effects. The patient was provided with appropriate answers, was given appropriate prescriptions and next appointment as needed. No further questions from the patient. Not available 09/30/2016 09:57:31 05/01/2017 [id number] acne in teens: care instructions Not available 05/01/2017 12:50:33 The patient diagnosis, treatment and medicines were discussed, including side effects. The patient was provided with appropriate answers, was given appropriate prescriptions and next appointment as needed. No further questions from the patient. 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 A cne Referring Physician: Maura Bender, Physician Heel Cutter, Encounter Date: 05/01/2017 Results Created Date Observation Date Name Description Value Unit Range Abnormal Flag Note LastModifiedBy Organization Detail LastModifiedTime 09/17/19 17 09/16/2016 ESR (eryt hrocy te sedim entat ion rate) , blood sed rate 5 mm/HR 0-20 normal Not Available [facility] (Lab) [address], [place], [address], 09/17/2016 03:23:54 09/17/19 17 09/16/2016 CBC WBC 6.6 10*3/ uL 3.5 - 10.0 Not Available [facility] [address] [facility] [address], [place], [address], 09/17/2016 19:26:40 09/17/19 17 09/16/2016 CBC RBC 4.67 10*6/ uL 3.9 - 5.10 Not Available [facility] [address] [facility] [address], [place], [address], 09/17/2016 19:26:40 09/17/19 17 09/16/2016 CBC HGB 13.6 g/dL 12.0 - 15.0 Not Available [facility] [address] [facility] [address], [place], [address], 09/17/2016 19:26:40 09/17/19 17 09/16/2016 CBC HCT 40.9 % 37.0 - 45.0 Not Available [facility] [address], [place], [address], 09/17/2016 19:26:40 09/17/19 17 09/16/2016 CBC MCV 88.0 fL 83 - 100 Not Available [facility] [address], [place], [address], 09/17/2016 19:26:40 09/17/19 17 09/16/2016 CBC MCH 29.1 pg 26.0 - 34.0 Not Available [facility] [address] [facility] [address] [address], [place], [address], 09/17/2016 19:26:40 09/17/19 17 09/16/2016 CBC MCHC 33.2 g/dL 32.0 - 35 Not Available [facility] [address] [facility] [address] [address], [place], [address], 09/17/2016 19:26:40 09/17/19 17 09/16/2016 CBC RDW 13.3 % 12.0 - 16.0 Not Available [facility] [address] [facility] [address] [address], [place], [address], 09/17/2016 19:26:40 09/17/19 17 09/16/2016 CBC plt 281 10*3/ uL 145 - 355 Not Available [facility] [address] [facility] [address] [address], [place], [address], 09/17/2016 19:26:40 09/17/19 17 09/16/2016 CBC MPV 7.8 fL 7.3 - 10.0 Not Available [facility] [address] [facility] [address] [address], [place], [address], 09/17/2016 19:26:40 09/17/19 17 09/16/2016 CBC gr% 32.8 % 49 - 79 low Not Available [facility] [address] [facility] [address] [address], [place], [address], 09/17/2016 19:26:40 09/17/19 17 09/16/2016 CBC gr# 2.2 # 1.1 - 6.0 Not Available [facility] [address] [facility] [address], [place], [address], 09/17/2016 19:26:40 09/17/19 17 09/16/2016 CBC MO% 17.1 % 2.0 - 6.0 high Not Available [facility] [address] [facility] [address] [facility] [address], [place], [address], 09/17/2016 19:26:40 09/17/19 17 09/16/2016 CBC MO# 1.1 # 0.3 - 1.0 high Not Available [facility] [address] [facility] [address] [facility] [address], [place], [address], 09/17/2016 19:26:40 09/17/19 17 09/16/2016 CBC ly% 50.1 % 19.0 - 47.0 high Not Available [facility] [address] [facility] [address] [facility] [address], [place], [address], 09/17/2016 19:26:40 09/17/19 17 09/16/2016 CBC ly# 3.3 # 0.7 - 3.7 Not Available [facility] [address] [facility] [address], [place], [address], 09/17/2016 19:26:40 09/17/19 17 09/16/2016 CMP, serum or plasm a sodium 140 mmol/ L 136 - 145 Not Available [facility] [address] [facility] [address], [place], [address], 09/17/2016 19:26:42 09/17/19 17 09/16/2016 CMP, serum or plasm a potassium 3.7 mmol/ L 3.5 - 5.1 Not Available [facility] [address] [facility] [address] [facility] [address], [place], [address], 09/17/2016 19:26:42 09/17/19 17 09/16/2016 CMP, serum or plasm a chloride 104 mmol/ L 98 - 107 Not Available [facility] [address] [facility] [address] [facility] [address], [place], [address], 09/17/2016 19:26:42 09/17/19 17 09/16/2016 CMP, serum or plasm a carbon dioxide 26 mmol/ L 23 - 31 Not Available [facility] [address] [facility] [address] [facility] [address], [place], [address], 09/17/2016 19:26:42 09/17/19 17 09/16/2016 CMP, serum or plasm a anion gap 13.7 7.0 - 34.0 Not Available [facility] [address] [facility] [address], [place], [address], 09/17/2016 19:26:42 09/17/19 17 09/16/2016 CMP, serum or plasm a glucose 79 mg/dL 74 - 106 Not Available [facility] [address] [facility] [address] [facility] [address], [place], [address], 09/17/2016 19:26:42 09/17/19 17 09/16/2016 CMP, serum or plasm a BUN 9.5 mg/dL 6 - 20 Not Available [facility] [address] [facility] [address], [place], [address], 09/17/2016 19:26:42 09/17/19 17 09/16/2016 CMP, serum or plasm a creatinine 0.9 mg/dL 0.5 - 1.2 Not Available [facility] [address] [facility] [address] [facility] [address], [place], [address], 09/17/2016 19:26:42 09/17/19 17 09/16/2016 CMP, serum or plasm a calcium 10.0 mg/dL 8.4 - 10.5 Not Available [facility] [address] [facility] [address], [place], [address], 09/17/2016 19:26:42 09/17/1909/16/2016 CMP, serum or plasm a total protein 7.5 g/dL 6.4 - 8.3 Not Available [facility] [address] [facility] [address] [facility] [address], [place], [address], 09/17/2016 19:26:42 09/17/1909/16/2016 CMP, serum or plasm a albumin 4.5 g/dL 3.5 - 4.8 Not Available [facility] [address] [facility] [address] [facility] [address], [place], [address], 09/17/2016 19:26:42 09/17/19 17 09/16/2016 CMP, serum or plasm a globulin 3.0 g/dL 2.3 - 3.5 Not Available [facility] [address] [facility] [address], [place], [address], 09/17/2016 19:26:42 09/17/19 17 09/16/2016 CMP, serum or plasm a A/G 1.5 # 9 - 56 low Not Available [facility] [address] [facility] [address], [place], [address], 09/17/2016 19:26:42 09/17/19 17 09/16/2016 CMP, serum or plasm a alk phos 68 U/L 42 - 141 Not Available [facility] [address] [facility] [address] [facility] [address], [place], [address], 09/17/2016 19:26:42 09/17/19 17 09/16/2016 CMP, serum or plasm a ALT 11 U/L 7 - 34 Not Available [facility] [address] [facility] [address] [facility] [address], [place], [address], 09/17/2016 19:26:42 09/17/19 17 09/16/2016 CMP, serum or plasm a AST 16 U/L 7 - 31 Not Available [facility] [address] [facility] [address] [facility] [address], [place], [address], 09/17/2016 19:26:42 09/17/1909/16/2016 CMP, serum or plasm a total bilirubin 0.6 mg/dL 0 - 1.2 Not Available [facility] [address] [facility] [address] [facility] [address], [place], [address], 09/17/2016 19:26:42 09/17/19 17 09/16/2016 CMP, serum or plasm a age 16 years Not Available [facility] [address] [facility] [address] [facility] [address], [place], [address], 09/17/2016 19:26:42 09/17/19 17 09/16/2016 CMP, serum or plasm a sex multiplier 0.742 # Not Available [facility] [address], [place], [address], 09/17/2016 19:26:42 09/17/19 17 09/16/2016 CMP, serum or plasm a eGFR aa 99 mL/mi n/1.7 3 60 - 300 Not Available [facility] [address], [place], [address], 09/17/2016 19:26:42 09/17/19 17 09/16/2016 CMP, serum or plasm a eGFR nonaa 82 mL/mi n/1.7 3 60 - 300 Not Available [facility] [address], [place], [address], 09/17/2016 19:26:42 09/17/19 17 09/16/2016 lipid panel , serum cholesterol 189 mg/dL 100 - 199 Not Available [facility] [address], [place], [address], 09/17/2016 19:26:44 09/17/1909/16/2016 lipid panel , serum triglyceride 88 mg/dL 0 - 150 Not Available [facility] [address], [place], [address], 09/17/2016 19:26:44 09/17/1909/16/2016 lipid panel , serum HDL 45 mg/dL 30 - 85 Not Available [facility] [address], [place], [address], 09/17/2016 19:26:44 09/17/1909/16/2016 lipid panel , serum LDL-calculat ed 126 mg/dL 0 - 100 high Not Available [facility] [address], [place], [address], 09/17/2016 19:26:44 09/17/1909/16/2016 lipid panel , serum C/H 4.2 # 1.0 - 4.0 high Not Available [facility] [address] [facility] [address], [place], [address], 09/17/2016 19:26:44 09/17/19 17 09/16/2016 magne sium, serum or plasm a magnesium 2.4 mg/dL 1.7 - 2.8 Not Available [facility] [address] [facility] [address] [facility] [address], [place], [address], 09/17/2016 19:26:45 09/17/19 17 09/16/2016 vitam in D, 25-hy droxy , total , serum vitamin D 24.9 NG/dL 31 - 100 low Not Available [facility] [address] [facility] [address], [place], [address], 09/18/2016 19:56:31 09/17/19 17 09/16/2016 vitam in B12, serum vitamin B12 662 pg/mL 230 - 1050 Not Available [facility] [address] [facility] [address], [place], [address], 09/18/2016 19:56:31 09/17/19 17 09/16/2016 folat e, serum folate >20.00 0 NG/mL 3 - 16 high Not Available [facility] [address] [facility] [address], [place], [address], 09/18/2016 19:56:32 09/17/19 17 09/16/2016 TSH, serum or plasm a TSH 1.5 mIU/L 0.5 - 6.8 Not Available [facility] [address] [facility] [address], [place], [address], 09/18/2016 19:56:33 09/17/19 17 09/16/2016 T3, total , serum TT3 1.5 NG/mL 0.7 - 1.7 Not Available [facility] [address] [facility] [address] [facility] [address], [place], [address], 09/18/2016 19:56:34 09/17/19 17 09/16/2016 T4, free, serum free T4 .9 NG/dL 0.75 - 1.54 Not Available [facility] [address], [place], [address], 09/18/2016 19:56:35 09/17/19 17 09/16/2016 HbA1c (hemo globi n A1c), blood hemoglobin A1C 5.5 % 4 - 6 Not Available [facility] [address], [place], [address], 09/20/2016 20:40:27 05/02/19 18 05/01/2017 urina lysis , compl ete color Yellow Not Available [facility] (Lab) [address] [facility], [place], [address], 05/02/2017 06:35:58 05/02/19 18 05/01/2017 urina lysis , compl ete clarity Clear Not Available [facility] (Lab) [address] [place], [address], 05/02/2017 06:35:58 05/02/19 18 05/01/2017 urina lysis , compl ete bilirubin Negati ve negati ve normal Not Available [facility] (Lab) [address] [place], [address], 05/02/2017 06:35:58 05/02/19 18 05/01/2017 urina lysis , compl ete urobilinogen <2.0 mg/dL 0.2-1. 9 normal Not Available [facility] (Lab) [address] [place], [address], 05/02/2017 06:35:58 05/02/19 18 05/01/2017 urina lysis , compl ete ketones Negati ve mg/dL negati ve normal Not Available [facility] (Lab) [address] [place], [address], 05/02/2017 06:35:58 05/02/19 18 05/01/2017 urina lysis , compl ete glucose Negati ve mg/dL negati ve normal Not Available [facility] (Lab) [address] [facility], [place], [address], 05/02/2017 06:35:58 05/02/19 18 05/01/2017 urina lysis , compl ete protein 30 mg/dL negati ve abnormal Not Available [facility] (Lab) [address] [facility], [place], [address], 05/02/2017 06:35:58 05/02/19 18 05/01/2017 urina lysis , compl ete blood Large negati ve abnormal Not Available [facility] (Lab) [address] [facility], [place], [address], 05/02/2017 06:35:58 05/02/19 18 05/01/2017 urina lysis , compl ete pH 7.0 5.0-9. 0 normal Not Available [facility] (Lab) [address] [facility], [place], [address], 05/02/2017 06:35:58 05/02/19 18 05/01/2017 urina lysis , compl ete nitrite Negati ve negati ve normal Not Available [facility] (Lab) [address] [facility], [place], [address], 05/02/2017 06:35:58 05/02/19 18 05/01/2017 urina lysis , compl ete leuk esterase Negati ve negati ve normal Not Available [facility] (Lab) [address] [facility], [place], [address], 05/02/2017 06:35:58 05/02/19 18 05/01/2017 urina lysis , compl ete specific gravity 1.019 1.001- 1.035 normal Not Available [facility] (Lab) [address] [place], [address], 05/02/2017 06:35:58 05/02/19 18 05/01/2017 urina lysis , compl ete red blood cell 0-2 #/hpf none,0 -2 normal Not Available [facility] (Lab) [address] [facility], [place], [address], 05/02/2017 06:35:58 05/02/19 18 05/01/2017 urina lysis , compl ete white blood cell None #/hpf none,0 -5 normal Not Available [facility] (Lab) [address] [facility], [place], [address], 05/02/2017 06:35:58 05/02/19 18 05/01/2017 urina lysis , compl ete bacteria None /hpf none normal Not Available [facility] (Lab) [address] [facility], [place], [address], 05/02/2017 06:35:58 05/02/19 18 05/01/2017 urina lysis , compl ete mucus Trace /hpf none,t race,f ew normal Not Available [facility] (Lab) [address] [facility], [place], [address], 05/02/2017 06:35:58 05/02/19 18 05/01/2017 urina lysis , compl ete squam epi cells Trace /hpf none abnormal Not Available [facility] (Lab) [address] [facility], [place], [address], 05/02/2017 06:35:58 05/02/19 18 05/01/2017 homoc ystei ne, blood homocysteine 9.0 umol/ L 6.6 - 17.8 Not Available [facility] [address] [facility] [address], [place], [address], 05/07/2017 18:11:38 05/03/19 18 05/02/2017 CBC WBC 7.9 10*3/ uL 3.5 - 10.0 Not Available [facility] [address], [place], [address], 05/02/2017 14:47:50 05/03/19 18 05/02/2017 CBC RBC 4.74 10*6/ uL 3.9 - 5.10 Not Available [facility] [address] [facility] [address], [place], [address], 05/02/2017 14:47:50 05/03/19 18 05/02/2017 CBC HGB 14.5 g/dL 12.0 - 15.0 Not Available [facility] [address] [facility] [address], [place], [address], 05/02/2017 14:47:50 05/03/19 18 05/02/2017 CBC HCT 43.5 % 37.0 - 45.0 Not Available [facility] [address] [facility] [address] [facility] [address], [place], [address], 05/02/2017 14:47:50 05/03/19 18 05/02/2017 CBC MCV 92.0 fL 83 - 100 Not Available [facility] [address] [facility] [address] [facility] [address], [place], [address], 05/02/2017 14:47:50 05/03/19 18 05/02/2017 CBC MCH 30.6 pg 26.0 - 34.0 Not Available [facility] [address] [facility] [address], [place], [address], 05/02/2017 14:47:50 05/03/19 18 05/02/2017 CBC MCHC 33.3 g/dL 32.0 - 35 Not Available [facility] [address] [facility] [address] [facility] [address], [place], [address], 05/02/2017 14:47:50 05/03/19 18 05/02/2017 CBC RDW 13.6 % 12.0 - 16.0 Not Available [facility] [address] [facility] [address], [place], [address], 05/02/2017 14:47:50 05/03/19 18 05/02/2017 CBC plt 297 10*3/ uL 145 - 355 Not Available [facility] [address] [facility] [address], [place], [address], 05/02/2017 14:47:50 05/03/19 18 05/02/2017 CBC MPV 7.4 fL 7.3 - 10.0 Not Available [facility] [address] [facility] [address] [facility] [address], [place], [address], 05/02/2017 14:47:50 05/03/19 18 05/02/2017 CBC gr% 61.6 % 49 - 79 Not Available [facility] [address] [facility] [address] [facility] [address], [place], [address], 05/02/2017 14:47:50 05/03/19 18 05/02/2017 CBC gr# 5.0 # 1.1 - 6.0 Not Available [facility] [address] [facility] [address] [facility] [address], [place], [address], 05/02/2017 14:47:50 05/03/19 18 05/02/2017 CBC MO% 5.9 % 2.0 - 6.0 Not Available [facility] [address] [facility] [address] [facility] [address], [place], [address], 05/02/2017 14:47:50 05/03/19 18 05/02/2017 CBC MO# 0.4 # 0.3 - 1.0 Not Available [facility] [address] [facility] [address] [facility] [address], [place], [address], 05/02/2017 14:47:50 05/03/19 18 05/02/2017 CBC ly% 32.5 % 19.0 - 47.0 Not Available [facility] [address] [facility] [address] [facility] [address], [place], [address], 05/02/2017 14:47:50 05/03/19 18 05/02/2017 CBC ly# 2.5 # 0.7 - 3.7 Not Available [facility] [address] [facility] [address] [facility] [address], [place], [address], 05/02/2017 14:47:50 05/03/19 18 05/02/2017 CMP, serum or plasm a sodium 140 mmol/ L 136 - 145 Not Available [facility] [address] [facility] [address] [facility] [address], [place], [address], 05/06/2017 20:33:34 05/03/19 18 05/02/2017 CMP, serum or plasm a potassium 4.3 mmol/ L 3.5 - 5.1 Not Available [facility] [address] [facility] [address] [facility] [address], [place], [address], 05/06/2017 20:33:34 05/03/19 18 05/02/2017 CMP, serum or plasm a chloride 103 mmol/ L 98 - 107 Not Available [facility] [address] [facility] [address], [place], [address], 05/06/2017 20:33:34 05/03/19 18 05/02/2017 CMP, serum or plasm a carbon dioxide 29 mmol/ L 23 - 31 Not Available [facility] [address] [facility] [address], [place], [address], 05/06/2017 20:33:34 05/03/19 18 05/02/2017 CMP, serum or plasm a anion gap 12.3 7.0 - 34.0 Not Available [facility] [address] [facility] [address], [place], [address], 05/06/2017 20:33:34 05/03/19 18 05/02/2017 CMP, serum or plasm a glucose 80 mg/dL 74 - 106 Not Available [facility] [address] [facility] [address] [facility] [address], [place], [address], 05/06/2017 20:33:34 05/03/19 18 05/02/2017 CMP, serum or plasm a BUN 10.4 mg/dL 6 - 20 Not Available [facility] [address] [facility] [address], [place], [address], 05/06/2017 20:33:34 05/03/19 18 05/02/2017 CMP, serum or plasm a creatinine 0.9 mg/dL 0.5 - 1.2 Not Available [facility] [address] [facility] [address] [facility] [address], [place], [address], 05/06/2017 20:33:34 05/03/19 18 05/02/2017 CMP, serum or plasm a calcium 9.3 mg/dL 8.4 - 10.5 Not Available [facility] [address] [facility] [address], [place], [address], 05/06/2017 20:33:34 05/03/19 18 05/02/2017 CMP, serum or plasm a total protein 7.2 g/dL 6.4 - 8.3 Not Available [facility] [address] [facility] [address], [place], [address], 05/06/2017 20:33:34 05/03/19 18 05/02/2017 CMP, serum or plasm a albumin 4.5 g/dL 3.5 - 4.8 Not Available [facility] [address] [facility] [address], [place], [address], 05/06/2017 20:33:34 05/03/19 18 05/02/2017 CMP, serum or plasm a globulin 2.7 g/dL 2.3 - 3.5 Not Available [facility] [address] [facility] [address], [place], [address], 05/06/2017 20:33:34 05/03/19 18 05/02/2017 CMP, serum or plasm a A/G 1.7 # 9 - 56 low Not Available [facility] [address] [facility] [address], [place], [address], 05/06/2017 20:33:34 05/03/19 18 05/02/2017 CMP, serum or plasm a alk phos 89 U/L 42 - 141 Not Available [facility] [address] [facility] [facility] [address], [place], [address], 05/06/2017 20:33:34 05/03/19 18 05/02/2017 CMP, serum or plasm a ALT 15 U/L 7 - 34 Not Available [facility] [address] [facility] [address], [place], [address], 05/06/2017 20:33:34 05/03/19 18 05/02/2017 CMP, serum or plasm a AST 15 U/L 7 - 31 Not Available [facility] [address] [facility] [address], [place], [address], 05/06/2017 20:33:34 05/03/19 18 05/02/2017 CMP, serum or plasm a total bilirubin 0.4 mg/dL 0 - 1.2 Not Available [facility] [address] [facility] [address], [place], [address], 05/06/2017 20:33:34 05/03/19 18 05/02/2017 CMP, serum or plasm a age 17 years Not Available [facility] [address] [facility] [address], [place], [address], 05/06/2017 20:33:34 05/03/19 18 05/02/2017 CMP, serum or plasm a sex multiplier 0.742 # Not Available [facility] [address] [facility] [address], [place], [address], 05/06/2017 20:33:34 05/03/19 18 05/02/2017 magne sium, serum or plasm a magnesium 2.1 mg/dL 1.7 - 2.8 Not Available [facility] [address] [facility] [address], [place], [address], 05/06/2017 20:33:36 05/03/19 18 05/02/2017 lipid panel , serum cholesterol 181 mg/dL 100 - 199 Not Available [facility] [address] [facility] [address], [place], [address], 05/06/2017 20:33:39 05/03/19 18 05/02/2017 lipid panel , serum triglyceride 146 mg/dL 0 - 150 Not Available [facility] [address] [facility] [address], [place], [address], 05/06/2017 20:33:39 05/03/19 18 05/02/2017 lipid panel , serum HDL 45 mg/dL 30 - 85 Not Available [facility] [address] [facility] [address], [place], [address], 05/06/2017 20:33:39 05/03/19 18 05/02/2017 lipid panel , serum LDL-calculat ed 107 mg/dL 0 - 100 high Not Available [facility] [address] [facility] [address], [place], [address], 05/06/2017 20:33:39 05/03/19 18 05/02/2017 lipid panel , serum C/H 4.0 # 1.0 - 4.0 Not Available [facility] [address], [place], [address], 05/06/2017 20:33:39 05/03/19 18 05/02/2017 vitam in B12, serum vitamin B12 635 pg/mL 230 - 1050 Not Available [facility] [address] [facility] [address], [place], [address], 05/09/2017 10:33:51 05/03/19 18 05/02/2017 TSH, serum or plasm a TSH .5 mIU/L 0.5 - 6.8 Not Available [facility] [address], [place], [address], 05/09/2017 10:33:52 05/03/19 18 05/02/2017 vitam in D, 25-hy droxy , total , serum vitamin D 16.8 NG/dL 31 - 100 critical low Not Available [facility] [address] [facility] [address], [place], [address], 05/09/2017 10:33:53 Result Notes None recorded. Problems No Known Problems Medical Equipment None Reported. Allergies Allergen ID Allergen Name Allergen Category Reaction Reaction Severity Criticality Documentation Date Start Date Code Code System Note Provider Name and Address Organization Details Recorded Time 6380 Product michelein g penicilli n (product) medicatio n Not available Not available Not available 09/16/2016 55647 8001 SNOMED Not Available Not Available Not [...] 7 160.02 cm 75 /min 28.7 kg/m2 49272.9 6 g 116 mm[Hg] 81 mm[Hg] [facility] 7 10:55:43 Date Recorded Body height Oxygen saturation Oxygen saturation in Arterial blood by Pulse oximetry Heart rate Body temperature Body mass index (BMI) Body weight Systolic blood pressure Diastolic blood pressure Provider Name and Address Organization Details Last Updated DateTime 7 160.02 cm 99 % 99 % 77 /min 97.1 [degF] 28.7 kg/m2 11539.9 6 g 113 mm[Hg] 74 mm[Hg] Aurelia Collins [facility] 7 09:53:27 Date Recorded Body height Body temperature Body mass index (BMI) Body weight Oxygen saturation Oxygen saturation in Arterial blood by Pulse oximetry Heart rate Systolic blood pressure Diastolic blood pressure Provider Name and Address Organization Details Last Updated DateTime 8 160.02 cm 95.9 [degF] 28.9 kg/m2 64342.5 6 g 98 % 98 % 92 /min 110 mm[Hg] 74 mm[Hg] Jazmin [facility] 8 12:08:57 Social History Question Answer Notes LastModified by Organizat ion Details LastModified Time Tobacco Smoking Status Never Smoker Eleanor [facility]bert [facility] 09/16/2016 10:52:02 What Is Your Level Of Alcohol Consumption? None Information not available 09/16/2016 How Many Years Have You Consumed Alcohol? 0 Information not available 05/01/2017 Are You Blind Or Do You Have Difficulty Seeing? Yes USES GLASESS [email or web address] Information not available 05/01/2017 What Is Your Level Of Caffeine Consumption? None Information not available 09/16/2016 How Much Tobacco Do You Chew? None Information not available 09/16/2016 Are You Currently Employed? Yes [email or web address] Information not available 05/01/2017 Are You Deaf Or Do You Have Serious Difficulty Hearing? No Information not available 05/01/2017 What Type Of Diet Are You Following? REGULAR Information not available 09/16/2016 Which Illicit Or Recreational Drugs Have You Used? 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 5 [email or web address] Information not available 05/01/2017 On Those Days That You Engage In Moderate To Strenuous Exercise, How Many Minutes, On Average, Do You Exercise? 5 [email or web address] Information not available 05/01/2017 How Hard Is It For You To Pay For The Very Basics Like Food, Housing, Medical Care, And Heating? [id number] [email or web address] Information not available 05/01/2017 Are There Any Guns Present In Your Home? No [email or web address] Information not available 05/01/2017 Hard Of Hearing Or Deaf In One Or Both Ears? No [email or web address] Information not available 05/01/2017 Single Or Multi-level Home/work? Multi Level Home APT [email or web address] Information not available 05/01/2017 Legally Blind In One Or Both Eyes? No [email or web address] Information no t available 05/01/2017 Live Alone Or With Others? With Others [email or web address] Information not available 05/01/2017 Are There Any Behavioral, Verbal Or Physical Signs Of Dental Pain? No Information not available 05/01/2017 Do You Have Swollen, Bleeding, Ulcer, White/red Patches, Redness Under Dentures? No [email or web address] Information not available 05/01/2017 Do You Have Constant Bad Breath? No [email or web address] Information not available 05/01/2017 Do You Have More Than One Broken Tooth Or Roots? No [email or web address] Information not available 05/01/2017 Do You Have Swollen Tongue? No ysxmbq73 Information not available 05/01/2017 Do You Present Social Anxiety Symptoms Such As Isolation Or Activities Of Independent Living? No [email or web address] Information not available 05/01/2017 Are There Any Household/ Environmental Risks Affecting Your Health? No [email or web address] Information not available 05/01/2017 Is There Any Family History Of Substance Use Such As Drugs Or Alcohol? No Information not available 05/01/2017 Any Family Mental Health History? No [email or web address] Information not available 05/01/2017 Do You Have History Of Mental Health Conditions? No [email or web address] Information not available 05/01/2017 1. Over The Past Two Weeks Have You Ever [place] Down, Depressed Or Hopeless? No Information not available 09/16/2016 1. Depressed Mood Most Of The Day, Neraly Everyday? No [email or web address] Information not available 05/01/2017 2. Markedly Diminished Interest Or Pleasure In Almost All Activities Most Of The Day, Nearly Everyday? No [email or web address] Information not available 05/01/2017 2. Over The Past Two Weeks Have You [place] No Pleasure Or Interest In Doing Things? No Information not available 09/16/2016 3. Significant Weight Loss Or Weight Gain? Yes WEIGHT GAIN [email or web address] Information not available 05/01/2017 4. Insomnia/ Hypersomnia? Yes Information not available 05/01/2017 5. Psychomotor Agitation/ Retardation? No [email or web address] Information not available 05/01/2017 6. Fatigue (loss Of Energy)? No [email or web address] Information not available 05/01/2017 8. Impaired Concentration (indecisiveness)? No [email or web address] Information no t available 05/01/2017 7. Feelings Of Worthlessness (guilt)? No [email or web address] Information not available 05/01/2017 9. Recurrent Thoughts Of Or Suicide Attempt? No [email or web address] Information not available 05/01/2017 Smoking Assessment 05/01/2017 [email or web address] Information not available 05/01/2017 Drinking Assessment 05/01/2017 [email or web address] Information not available 05/01/2017 Depression Screenin05/01/2017 Information not available 05/01/2017 Have You Ever [place] Like You Should Cut Down On Your Drinking?: No Information not available 09/16/2016 Have People Annoyed You By Criticizing Your Drinking?: No Information not available 09/16/2016 Have You Ever [place] Bad Or Guilty About Your Drinking?: No Information not available 09/16/2016 Have You Ever Had A Drink First Thing In The Morning To Steady Your Nerves Or To Get Rid Of A Hangover (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 Do [...] How Many Children Do You Have? 0 [email or web address] Information not available 05/01/2017 What Is Your Relationship Status? Single [email or web address] Information not available 05/01/2017 Seat Belts Used Routinely Yes [email or web address] Information not available 05/01/2017 Are You Sexually Active? No Information not available 09/16/2016 Smoke Alarm In Home Yes [email or web address] Information not available 05/01/2017 At What Age Did You Start Smoking Tobacco? 0 Information not available 09/16/2016 How Much Tobacco Do You Smoke? No Information not available 09/16/2016 General Stress Level Medium [email or web address] Information not available 05/01/2017 Do You Feel Stressed (tense, Restless, Nervous, Or Anxious, Or Unable To Sleep At Night)? [id number] [email or web address] Information not available 05/01/2017 Do You Use Sunscreen Routinely? No qcobhe75 Information not available 05/01/2017 How Many Years Have You Smoked Tobacco? 0 Information not available 09/16/2016 Sex: Unknown Functional Status Question Answer Note LastModified by Organizat ion Details LastModified Time Do you have difficulty walking or climbing stairs? No [email or web address] Information not available 05/01/2017 Do you have transportation difficulties? No [email or web address] Information not available 05/01/2017 Do you have difficulty doing errands alone? No [email or web address] Information not available 05/01/2017 Are you able to care for yourself? Yes [email or web address] Information n ot available 05/01/2017 Do you have difficulty dressing or bathing? No [email or web address] Information not available 05/01/2017 What is your exercise level? Occasional Information not available 09/16/2016 Mental Status Question Answer Note LastModified by Organization D etails LastModified Time Do you have difficulty concentrating, remembering or making decisions? No [email or web address] Information no t available 05/01/2017 Family History Relationship Description Onset Age of this Age Resolved Age Notes LastModified by Organization Details LastModified Time Mother Hypertensive disorder [email or web address] Not available 09/16 10:51:57 Medical History Condition Response Coronary Artery Disease N Other N Gout N Kidney Stones N Blood Diseases N Hyperthyroidism N Blood Transfusion N Breast Cancer N mrsa exposure N Hypothyroidism N Lung Disease N Depression N COPD N Defects or Inherited Disease N Developmental or Behavioral Disorders N Breast Problem N Anesthesia Complications N Meniere's disease N Anxiety Disorder N Muscle, Joint, or Bone Problems N Obesity N Vision or Eye Problems N Arthritis N Polyps N Infertility N Chronic ear infections N Mental Disorder N Cancer N Varicosities N Stroke N ADHD N Endometriosis N Bladder or Kidney Problems N High Cholesterol N Liver Disease N Fibromyalgia N Headaches N Kidney Disease N Heart Problems N [...] Pulmonary Embolism N Pre-Eclampsia N Hypertension N Osteoporosis N Chicken Pox N Autism Spectrum Disorder (ASD) N Thrombophilias N Gynecological History Statement/Question Response STIs/STDs N Sexual Problems? N Age at Menarche 9 Current Control Method None Date of LMP 09/12/2016 Sexually Active? N Post Menopausal Bleeding N Obstetrics History GPAL:G 0 P 0 0 0 0 Past Encounters Encounter ID Performer Location Encounter Start Date Encounter Closed Date Diagnosis/Indication Diagnosis SNOMED-CT Code Diagnosis ICD10 Code Diagnosis Note [id number] Flor Atwood AM [address] [address] 09/16/2016 10:45:07 09/16/2016 11:24:08 Adult health examination 317103510 Z00.00 Acne 85466372 L70.9 Migraine 30945936 G43.90 9 Pure hypercholesterolemia 441042318 E78.00 Cobalamin deficiency 190 210454 E53.8 Hyperglycemia 40013912 R 73.9 [id number] MD [place] [address] [place] [address] 09/16/2016 17:23:40 09/16/2016 17:23:49 [id number] Flor Atwood AM [address] [address] 09/30/2016 09:47:27 09/30/2016 10:13:16 Vitamin D deficiency 07346139 E55.9 Migraine 61076300 G43.90 9 Body mass index 25-29 - overweight 595833630 Z68.28 [id number] Flor Atwood AM [address] [address] 05/01/2017 11:17:22 05/01/2017 13:04:28 Body mass index 25-29 - overweight 536430695 Z68.28 Acne 48822349 L70.9 Migraine 77360395 G43.90 9 Constipation 65155705 K5 9.00 [id number] [place] [address] 05/01/2017 18:00:13 05/01/2017 18:01:34 Health Concerns Section Related Observation LastModified by Organization Detai ls LastModified Time None Recorded Concern Status LastModified by Organization Details LastModified Time None Recorded Advance Directives Directive None Recorded Payers Encounter Date Sequence Insurance Name Policy Number Policy Kelsey Covered Member ID Kelsey Member ID Guarantor Name 09/16/2016 1 [facility] (MEDICAID REPLACEMENT - HMO) [id number] Irmary Giovanny [id number] Irmary Giovanny 09/16/2016 1 [facility] (MEDICAID REPLACEMENT - HMO) 4054 Irmary Giovanny [id number] Irmary Giovanny 09/30/2016 1 [facility] (MEDICAID REPLACEMENT - HMO) 4054 Irmary Giovanny [id number] Irmary Giovanny 05/01/2017 1 [facility] (MEDICAID REPLACEMENT - HMO) 4054 Irmary Giovanny [id number] Irmary Giovanny 05/01/2017 1 [facility] (MEDICAID REPLACEMENT - HMO) 4054 Irmary Giovanny [id number] Irmary Giovanny Notes Date Note Type Note Provider Name and Address Organization Details Recorded Time 09/16/2016 text/html Feeling good. Denies any depression or other sxs. Flor talbert [facility] 09/16/2016 11:22:20 09/30/2016 text/html PT IS ACTIVE AND ALERT, PT IS HERE FOR ROUTINE F/U. PT IS ALSO HERE FOR LABS RESULTS FROM 09/16/2016. PT DENIES ANY SXS. PT IS TAKING TYLENOL FOR HEADACHES. PT STATES THAT prescribed HER MEDICATION LAST VISIT, BUT NEVER GOT RECEIVED BY THE PHARMACY. Flor talbert [facility] 09/30/2016 10:15:57 05/01/2017 text/html PT IS ACTIVE AND ALERT. PER PT IS FEELING WELL TODAY. NO NEW PROBLEMS OR COMPLAINTS. Flor talbert [facility] 05/01/2017 13:09:06 OBGyn Episode No OBEpisode recorded.
== END 2024-05-17 11:59 | disposition home or self-care (01) ==
LOC: HO.HWS 11:26
PROVIDERS: PCP Physician Assistant; Visit Provider Obstetrics & Gynecology
DX: Z01.419 Encounter for gynecological examination (general) (routine) without abnormal findings (principal)
CPT/HCPCS: 99395; 99459

== ENCOUNTER → 2024-05-17 11:26 | Outpatient (BNVA) | payer OTHER, SELFPAY | PROVIDERS: PCP Physician Assistant; Visit Provider Obstetrics & Gynecology | DX: Z01.419 Encounter for gynecological examination (general) (routine) without abnormal findings (principal) | CPT/HCPCS: 99395; 99459 ==

== ENCOUNTER 2024-12-26 03:34 | Emergency (ER) | payer OTHER, SELFPAY ==
--- NOTE | ~2024-12-26 | XR_ITS ---
CLINICAL HISTORY: cough 1 view chest x-ray Comparison: None provided Findings: No consolidation or effusion. Heart size is normal. No acute fracture. IMPRESSION: 1. No acute findings. This document has been electronically signed by: Mohamud Cortez MD on 12/26/2024 06:40:54
--- NOTE | 2024-12-26 03:35 | ECG_ITS ---
Test Reason : CHEST PAIN Blood Pressure : */* mmHG Vent. Rate : 91 BPM Atrial Rate : 91 BPM P-R Int : 158 ms QRS Dur : 82 ms QT Int : 340 ms P-R-T Axes : 74 43 32 degrees QTcB Int : 418 ms Normal sinus rhythm Normal ECG No previous ECGs available Referred By: Generic ED Physician Electronically Signed By: Gallo Recio
[2024-12-26 03:36] VITALS: BP 141/89; PULSE 85; RESP 16; TEMP 36.4; O2SAT 98; BMI 25.0
--- OUTSIDE RECORDS SUMMARY | 2024-12-26 03:47 | XMS_ITS | Clinical Summary ---
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 Role Phone Unavailable Primary Care Provider [...] Cervical Cancer Screening: P ap Smear 2019 Depression Screening 02/18/2024 COVID-19 Vaccine ( - 2023-2 5 season) 2024 Influenza Vaccine (#1) 2024 RSV Immunization Adult Patie nts (1 - 1-dose 75+ series) 2073 HIB Vaccines Aged Out No longer eligi [...] age to complete this topic Meningococcal B Vaccine Aged Out No l onger eligible based on patient's age to complete this topic Pneumococcal Vaccine: Pediat rics (0 to 5 Years) and At-Risk Patients (6 to 49 Years) Aged Out No longer eligible b ased on patient's age to complete this topic RSV Immunization Patients Un zachary 20 months Aged Out No longer eligible b ased on patient's age to complete this topic Varicella Vaccines Aged Out No longer eligible based on patient's age to complete this topic
--- OUTSIDE RECORDS SUMMARY | 2024-12-26 03:47 | XMS_ITS | Clinical Summary ---
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 Role Phone Shari Castellano [facility] Primary Care Provider [phone] Source Comments PLEASE NOTE, if this patient [...] HPV 9 (Gardasil) 05/05/2018 PNEUMOCOCCAL POLYSACCHARIDE PPV23 (Pneumovax 23) 08/12/2018 TDAP 08/12/2018 Family History Medical History [...] 93 08/12/2018 10:08 AM EDT Temperature 37.2 C (98.9 F) 08/12/2018 10:08 AM EDT Respiratory Rate 16 05/05/2018 9:32 AM EDT Oxygen Saturation 99% 08/12/2018 10:08 AM EDT Inhaled Oxygen Concentration - - Weight 69.9 kg (154 lb) 08/12/2018 10:08 AM EDT Height 160 cm (5' 2.99 ) 08/12/2018 10:08 AM EDT Body Mass Index 27.29 08/12/2018 10:08 AM EDT Plan of Treatment Not on file Insurance [employer] Care Teams Industrial Maintenance Technician Relationship Specialty Start Date End Date Shari Castellano FNP [address] [place] [id number] PCP - General Internal Medicine 12/05/18
[2024-12-26 03:53] LABS: MANUAL DIFF FLAG NO
[2024-12-26 03:54] LABS: Hematocrit 38.9 % (37.0-47.0); Hemoglobin 13.1 g/dl (12.0-16.0); Imm Gran Abs Auto 0.03 X10*3/uL (0.00-0.03); Imm Gran Pct Auto 0.3 % (0.0-0.4); Lymphocytes Absolute Auto 3.7 X10*3/uL (1.2-4.9); Mean Corpuscular HGB Conc 33.7 g/dl (31.0-35.0); Mean Corpuscular Hemoglobin 28.9 pg (27.0-33.0); Mean Corpuscular Volume 85.9 fL (80.0-98.0); NRBC Abs Auto 0.000 X10*3/uL (0.0-0.012); NRBC Pct Auto 0.0 /100WBC (0.0-0.2); Platelet Count 363 X10*3/uL (160-400); Red Blood Count 4.53 X10*6/uL (4.20-5.50); White Blood Count 10.6 X10*3/uL (4.8-10.8)
[2024-12-26 04:10] LABS: Alanine Aminotransferase 24 U/L (0-31); Albumin Level 4.4 g/dL (3.5-5.0); Alkaline Phosphatase 83 U/L (39-117); Anion Gap 10 (12-20); Aspartate Amino Transferase 24 U/L (5-31); Blood Urea Nitrogen 15 mg/dL (9-16); Calcium 9.4 mg/dL (8.4-10.2); Carbon Dioxide 28 mmol/L (22-29); Chloride 106 mmol/L (96-108); Creatinine Clr Calc Pharmacy 77.4; Estimated Glomerular Filt Rate > 60; Potassium 3.7 mmol/L (3.3-5.1); Sodium 140 mmol/L (135-145); Total Protein 7.5 g/dL (6.5-8.0)
[2024-12-26 04:13] LABS: COVID-19 Test Negative (Negative); IDNOW Serial# 55D5AD1C; IDNOW Serial# 58CA691E; Influenza B2 Negative (Negative)
[2024-12-26 04:17] LABS: Troponin-I High Sensitivity < 2.7 ng/L (<3.5-17.0)
[2024-12-26 05:38] VITALS: BP 139/89; PULSE 101; RESP 14; TEMP 36.7; O2SAT 99
--- NOTE | 2024-12-26 07:53 | ED_ITS ---
HPI - Chest Pain General Chief Complaint: Chest Pain Stated Complaint: CP Time Seen by Provider: 12/26/24 07:53 Source: patient Mode of arrival: ambulatory Limitations: no limitations History of Present Illness ED Provider: Jailene Piña PA-C HPI narrative: Patient is a 24 year old assigned female at with a history of MAMADOU and migraines presenting to the emergency department today with right ear pain and cough. Patient states that over the last week or so she has felt generally unwell with a cough but over the last day she has had right ear pain that is worsening. Patient denies any other complaints at this time. Related Data Previous Rx's ?Medication ?Instructions ?Recorded vvorgufxar-pygdkmayjekbu-ofviurww 1 cap PO Q8H PRN ashley n 3 days #9 04/08/24 50 mg-300 mg-40 mg capsule caps (Fioricet) ondansetron 4 mg disintegrating 4 mg PO Q8H PRN nausea and 04/08/24 tablet vomiting 5 days #15 tabs amoxicillin 875 mg-potassium 1 tab PO BID 7 days #14 t abs 12/26/24 clavulanate 125 mg tablet doxycycline hyclate 100 mg tablet 100 mg PO BID 7 days #14 tabs 12/26/24 Allergies Allergy/AdvReac Type Severity Reaction Status Date / Time aspirin (ASPIRIN) Allergy Unknown SWELLING, Verified 12/26/24 03:41 anaphylaxis penicillin G Allergy Unknown Unknown Verified 12/26/24 03:41 Clindamycin Allergy Unknown Unknown Uncoded 12/26/24 03:41 SEAFOOD Allergy Unknown SWELLING Uncoded 12/26/24 03:41 Review of Systems 2 Constitutional: Constitutional: Reports as per HPI Eyes: Eyes: Reports as per HPI ENT: Reports as per HPI Cardiovascular: Cardiovascular: Reports as per HPI Respiratory: Respiratory: Reports as per HPI Gastrointestinal: Gastrointestinal: Reports as per HPI Genitourinary: Genitourinary: Reports as per HPI Musculoskeletal: Musculoskeletal: Reports as per HPI Integumentary/Breasts: Skin/Breast: Reports as per HPI Neurologic: Reports as per HPI Psychiatric: Psychiatric: Reports as per HPI Endocrine: Endocrine: Reports as per HPI Hematologic/Lymphatic: Hematologic/Lymphatic: Reports as per HPI Allergic/Immunologic: Allergic/Immunologic: Reports as per HPI PMF Past Medical History Attestation statement: The following information was validated with the patient. 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 Sexual orientation: Straight/Heterosexual Gender identity: Female Cognitive needs: No Hearing needs: No Vision needs: No Physical Exam 2 Vital Signs: Vital Signs: Last Vital Signs Temp 98.1 F 12/26/24 08:52 Pulse 85 12/26/24 08:52 Resp 14 12/26/24 08:52 BP 124/85 12/26/24 08:52 Pulse Ox 99 12/26/24 08:52 O2 Del Method Room Air 12/26/24 08:52 BMI result Body Mass Index 25.0 Const: General: cooperative, no acute distress, alert and awake Nutritional Appearance: well nourished Orientation/consciousness: patient oriented x3 HEENT: Head: Yes normal to inspection and Yes atraumatic Ears: hearing grossly normal bilaterally, external ears normal, TM abnormal erythematous on the right and other (normal left TM) General nose exam: Normal external nose present, no nasal discharge noted and no epistaxis Face and sinus: Yes normal facial exam, No abrasion and No laceration Mouth: Normal oral and palatal mucosa present, no drooling and no muffled voice Eyes: General: appearance normal, both eyes and all related structures P eriorbital: periorbital findings normal Eyelids: Yes eyelids normal C onjunctivae: conjunctivae normal Pupils: Equal, round and reactive pupils present EOM: EOMs intact bilaterally Neck: Neck: Yes normal visual inspection and Yes full ROM Resp: Effort & Inspection: normal respiratory effort and able to speak in complete sentences Neuro: General: patient oriented x3, moves all extremities and CN's II-XI intact bilaterally Cranial nerves: Yes Equal, round and reactive pupils present Cognition (Neuro): normal cognition Extrem: General: Yes normal to inspection, Yes full ROM and Yes capillary refill normal Psych: Appearance: grossly normal Mental Status: mental status grossly normal Affect: normal affect Attitude: cooperative Thought process: N ormal thought process present Thought content: Normal thought content present Insight: Good insight present (Psych) Medications Administered Discontinued Medications Generic Name Dose Route Start Last Admin Trade Name Isra PRN Reason Stop Dose Admin Acetaminophen 975 mg 12/26/24 07:20 12/26/24 07:24 Acetaminophen 325 Mg Tablet PO 12/26/24 07:21 Not Given ONCE ONE Ibuprofen 400 mg 12/26/24 07:23 12/26/24 07:29 Ibuprofen 400 Mg Tablet PO 12/26/24 07:24 400 mg ONCE ONE Administration Medical Decision Making Medical Decision Making [facility] Narrative: Patient is a 24 year old assigned female at with a history of MAMADOU and migraines presenting to the emergency department today with right ear pain and cough. Patient's physical exam was as noted in the physical exam portion of this note. Patient's blood work was unremarkable. Patient's EKG was unremarkable. Patient's chest x-ray showed no acute process. Patient's clinical presentation is most consistent with a URI and superimposed right otitis media. I explained my physical exam findings as well as all test results to the patient. I answered all questions asked by the patient. I stressed the importance of the patient taking her medication as directed (either prescribed or as the over the counter packaging recommends). I stressed the importance of the patient following up with her primary care provider. I stressed the importance of the patient returning to the emergency department immediately if her symptoms were to worsen or if she were to develop any dizziness, shortness of breath, difficulty breathing, chest pain, blurry vision, loss of vision, nausea, vomiting, abdominal pain, fever, chills, back pain, or any other complaints. Patient verbalized agreement and understanding with this treatment plan and discharge. Differential Diagnosis Differential Diagnoses: The differential diagnosis associated with the presentation includes URI Right otitis media COVID-19 Influenza PNA Admission/Observation Consideration of admission/observation: Escalation of care including admission/observation considered Patient would have been admitted to the hospital had her work up had any findings where hospital admission was appropriate and her clinical presentation warranted hospital admission. Lab Data [facility] Lab Attestation statement: I reviewed the patient's lab results. My interpretation of these results are in the MDM Rationale portion of this note. 12/26/24 03:47 12/26/24 03:47 Labs: Lab Results 12/26/24 12/26/24 Range/Units 03:44 03:47 WBC 10.6 (4.8-10.8) X10*3/uL RBC 4.53 (4.20-5.50) X10*6/uL Hgb 13.1 (12.0-16.0) g/dl Hct 38.9 (37.0-47.0) % MCV 85.9 (80.0-98.0) fL MCH 28.9 (27.0-33.0) pg MCHC 33.7 (31.0-35.0) g/dl RDW 13.3 (11.0-16.0) % Plt Count 363 (160-400) X10*3/uL MPV 9.1 L (9.4-12.3) fL Immature Gran % (Auto) 0.3 (0.0-0.4) % Neut % (Auto) 54.7 (45-73) % Lymph % (Auto) 34.4 (20-40) % Armstrong % (Auto) 6.4 (2-11) % Eos % (Auto) 3.8 (0-4) % Baso % (Auto) 0.4 (0-2) % Lymph # (Auto) 3.7 (1.2-4.9) X10*3/uL Armstrong # (Auto) 0.7 (0.1-1.2) X10*3/uL Eos # (Auto) 0.4 (0.0-0.4) X10*3/uL Baso # (Auto) 0.0 (0.0-0.2) X10*3/uL Abs Immat Gran (auto) 0.03 (0.00-0.03) X10*3/uL Absolute Neuts (auto) 5.8 (2.0-8.3) x10*3/uL Absolute Nucleated RBC 0.000 (0.0-0.012) X10*3/uL Nucleated RBC % (auto) 0.0 (0.0-0.2) /100WBC Sodium 140 (135-145) mmol/L Potassium 3.7 (3.3-5.1) mmol/L Chloride 106 (96-108) mmol/L Carbon Dioxide 28 (22-29) mmol/L Anion Gap 10 L (12-20) BUN 15 (9-16) mg/dL Creatinine 0.99 (0.5-1.4) mg/dL Estim Creat Clear Calc 77.4 Estimated GFR > 60 Random Glucose 103 (60-115) mg/dL Calcium 9.4 (8.4-10.2) mg/dL Total Bilirubin 0.4 (0.0-1.0) mg/dL AST 24 (5-31) U/L ALT 24 (0-31) U/L Alkaline Phosphatase 83 (39-117) U/L Troponin I High Sens < 2.7 (<3.5-17.0) ng/L Total Protein 7.5 (6.5-8.0) g/dL Albumin 4.4 (3.5-5.0) g/dL COVID-19 (KRISTEN) Negative (Negative) COVID-19 Clin Com See Note Influenza Type A (DIONTE) Negative (Negative) Influenza Type B (DIONTE) Negative (Negative) Influenza A & B Note See Note Independent Interpretation I performed an independent interpretation of an: EKG and Plain X-Ray Interpretation: My interpretation is in agreement with the radiologist's impression of this imaging study. L Reason for Exam: cough CLINICAL HISTORY: cough 1 view chest x-ray Comparison: None provided Findings: No consolidation or effusion. Heart size is normal. No acute fracture. IMPRESSION: 1. No acute findings. This document has been electronically signed by: Mohamud Cortez MD on 12/26/2024 06:40:54 Dictated By: Mohamud Cortez MD Signed By: Electronically signed by Mohamud Cortez MD 12/26/24 0641 I independently interpreted this EKG and am in agreement with the below findings: Vent. Rate: 91 BPM Atrial Rate: 91 BPM P-R Int: 158 ms QRS Dur: 82 ms QT Int: 340 ms P-R-T Axes: 74 43 32 degrees QTcB Int: 418 ms Normal sinus rhythm Normal ECG No previous ECGs available DD/ 0338 Radiology Impression Discussion of test interpretation with radiology: I have reviewed the radiologist's reading. Prescription Management I considered prescription management with: Antibiotic (patient prescribed an antibiotic for possible right OM) Discharge Plan Discharge Clinical Impression: Otitis media, Acute upper respiratory infection Patient Disposition: Home, Self-Care Instructions: Ear Infection (ED), Upper Respiratory Infection (DC) Additional Instructions: IF you are prescribed home medications and/or you are taking over the counter medications at home - it is very important you continue to do so as prescribed / directed unless told otherwise. Follow up with a primary care provider. Return to the emergency department immediately if your symptoms worsen or if you develop any numbness, tingling, dizziness, shortness of breath, difficulty breathing, chest pain, blurry vision, loss of vision, nausea, vomiting, abdominal pain, fever, chills, back pain, or any other complaints. L If you do not have a primary care provider - call any of the below numbers to establish and follow up with a primary care provider. [facility] Primary Care ([place]) [phone] [place] [address], [address] [facility] Primary Care ([address] [place]) [phone] [place] [address], [address] [facility], [address] [facility] Primary Care ([address] [place]) [phone] [place] [address], [address] [facility], [address] [facility] Primary Care ([place]) [phone] [place] [address], [address] [facility], [address] [facility] Family Medicine [phone] [address] [facility], [address] Please see the information below about our Patient Portal. If you are not yet enrolled in the [facility] Patient Portal, you will receive an enrollment email invitation following your visit to any [facility] care setting. You may also self-enroll in the Patient Portal by visiting our website: [email or web address] The following information is required to access the Patient Portal: - Your [facility] Medical Record Number - Your personal home email address (must match what is in your electronic medical record, Registration staff can assist with this) - Name - Date of Capabilities of the Patient Portal: - Message some providers - View upcoming appointments - Access your health summary, medical history, and visit history - View current conditions and allergies - View procedure and lab results - View your medications, including guidelines, side effects, and precautions - Complete pre-appointment questionnaires requested by your provider - Ready summary reports of your office visits and procedures To access the Patient Portal Mobile [employer], follow these directions: - Search [employer] in the [employer] Store or [employer] Store - Download the [employer]nam - Search for [facility] - Enter your login/password Prescriptions: New amoxicillin-pot clavulanate 875-125 mg tablet 1 tab PO BID 7 Days Qty: 14 0RF doxycycline hyclate 100 mg tablet 100 mg PO BID 7 Days Qty: 14 0RF No Action jrejfyqmcg-lqnuchcmxnwny-zina [Fioricet] 50-300-40 mg capsule 1 cap PO Q8H PRN (Reason: pain) 3 Days Qty: 9 0RF ondansetron 4 mg tablet,disintegrating 4 mg PO Q8H PRN (Reason: nausea and vomiting) 5 Days Qty: 15 0RF Referrals: Abraham Lion PA-C [Primary Care Provider, Internal Medicine] Stand Alone Forms: Work/School Release Interventions: ED Discharge Assessment Last Done: 12/26/24 08:52 Discharge Date/Time: 12/26/24 08:53 Print Language: Kosovan
[2024-12-26 08:52] VITALS: BP 124/85; PULSE 85; RESP 14; TEMP 36.7; O2SAT 99
== END 2024-12-26 08:53 | disposition home or self-care (01) ==
PROVIDERS: Emergency Provider Emergency Medicine Emergency Medical Services; PCP Physician Assistant
DX: J06.9 Acute upper respiratory infection, unspecified (principal); R07.89 Other chest pain; H92.01 Otalgia, right ear; R05.9 Cough, unspecified; Z11.52 Encounter for screening for COVID-19
CPT/HCPCS: 71045; 80053; 84484; 85025; 87502; 87635; 93005; 99283; 99285

== ENCOUNTER → 2024-12-26 03:35 | Outpatient (BNV) | payer OTHER, SELFPAY | PROVIDERS: Emergency Provider Emergency Medicine Emergency Medical Services; PCP Physician Assistant; Visit Provider Internal Medicine Cardiovascular Disease | DX: R07.9 Chest pain, unspecified (principal) | CPT/HCPCS: 93010 ==

== ENCOUNTER → 2024-12-26 05:13 | Outpatient (BNV) | payer OTHER, SELFPAY | PROVIDERS: PCP Physician Assistant; Visit Provider Radiology Diagnostic Radiology | DX: R05.9 Cough, unspecified (principal) | CPT/HCPCS: 71045 ==

== ENCOUNTER 2024-12-29 14:21 | Outpatient (AMB) | payer OTHER, SELFPAY ==
[2024-12-29 14:25] VITALS: BP 120/88; PULSE 98; TEMP 36.9; O2SAT 100; BMI 26.8
--- NOTE | 2024-12-29 14:25 | AM.OFFWIN_ITS ---
Intake Vital Signs 12/29/24 14:25 Height 5 ft 5 in Weight 161 lb BMI 26.8 BP 120/88 Blood Pressure Location Lt brachial Position Sitting Pulse 98 Pulse Source Pulse Oximeter Temp 98.4 F Temp Source Oral Pulse Oximetry (%) 100 Oxygen Delivery Method Room Air Intake Visit Reasons: EP Pain in right ear Intake Note: pt presents with severe RT ear pain beginning 5 days, seen at [facility] ER next day and was dx ear infection rx'd Doxycyline abx- last dose this morning at 1:30am. Since taking doxycycline her facial acne flared. Patient Tobacco Use Status: Never used Tobacco Allergies aspirin (ASPIRIN) Allergy (Unknown, Verified 12/29/24 14:29) SWELLING, anaphylaxis penicillin G Allergy (Unknown, Verified 12/29/24 14:29) Unknown Clindamycin Allergy (Unknown, Uncoded 12/29/24 14:29) Unknown SEAFOOD Allergy (Unknown, Uncoded 12/29/24 14:29) SWELLING Do you need a note to return to daycare/school/sports/work: Yes HPI HPI Comments History of Present Illness Details Patient is a 24yo F who presents with R ear pain At the end of November she had flu like symptoms with URI symptoms She said cough has lingered but is greatly improved; no CP or SOB She states Friday started with severe R ear pain and decreased hearing Went to ER and diagnosed with OM. Started on doxy Has taken 3 days and said causes nausea/vomiting and feels like face is breaking out with acnea States R ear pain still persistent No reliving factors No worsening factors + fever which has resolved since startin g doxy No ST or L ear pain No ear discharge PFSH Medical History Microscopic hematuria Hypermenorrhea Migraine with aura Migraine Family History Mother Breast cancer Father CAD (coronary artery disease), Onset Age: 36 Social History Housing: House Alcohol intake: never Patient Tobacco Use Status: Never used Tobacco e-Cigarette/Vaping Use: Never Used Second Hand Smoke Exposure: No Substance Use Type: Marijuana Current occupational status: employed 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 Speaking full sentences. Skin: Warm dry throughout. No rashes noted to neck or mastoid. No mastoid erythema or warmth to palpation Eye: EOMI, PERRL HENT: Airway patent. Uvula midline. No pharyngeal erythema or edema. 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 Bilateral canals clear with only minimal cerumen R canal without edema. L TM non-erythematous, non-bulging. No TM perforation or hemotympanum noted. R TM + erythematous and bulging. No TM perforation seen but + small dried blood noted at inferior aspect of TM. No drainage appreciated from TM. No mastoid ttp R side. Respiratory: CTA bilaterally. No wheezes, rales or rhonchi Cardiac: RRR. No murmur MSK: Full ROM extremities. Neurology: Alert. No aphasia or facial droop. Gait without abnormality Psych: Good mood and affect Vital Signs: Last Vital Signs Temp 98.4 F 12/29/24 14:25 Pulse 98 12/29/24 14:25 BP 120/88 12/29/24 14:25 Pulse Ox 100 12/29/24 14:25 Oxygen Delivery Method Room Air 12/29/24 14:25 BMI result Body Mass Index 26.8 Assessment & Plan Assessment & Plan (1) Otitis media: Code(s): H66.90 - Otitis media, unspecified, unspecified ear Qualifiers: Chronicity: acute Otitis media type: unspecified Qualified Code(s): H66.90 - Otitis media, unspecified, unspecified ear Plan: Patient seen and evaluated. + R OM on exam with possible perforation We discussed d/c doxy and take Azithromycin for 2nd line with penicillin allergy Discussed the possibility of a TM perforation and how to care for it; referred to ENT for further eval Work note given Patient gave verbal understanding and had no additional questions or concerns at time of discharge All questions answered Orders: Referrals Ear/Nose/Throat Referral H66.90 - Otitis media, unspecified, unspecified ear Medications: New azithromycin For 250 mg dose pack: take 500 mg today (day 1), then 250 mg for 4 days (days 2-5) PO 6 tabs 0RF Coding Level of Care Code Est Pt Level 3 (61154) Diagnoses Otitis media H66.90 Chronicity: acute Otitis media type: unspecified
--- OUTSIDE RECORDS SUMMARY | 2024-12-29 17:48 | XMS_ITS | Clinical Summary ---
Author Organization [facility] ity Address [address] [place] [address] Care Team Providers Care Chemical Sales Representative Name Role Phone Unavailable Primary Care Provider [...] Smear 2019 Depression Screening 02/18/2024 COVID-19 Vaccine (1 - 2024-2 6 season) 2024 Influenza Vaccine (#1) 2024 RSV [...]
--- OUTSIDE RECORDS SUMMARY | 2024-12-29 17:48 | XMS_ITS | Clinical Summary ---
Author Organization [facility] Address [address] [place] [address] Care Team Providers Care Wound Care Rn Name Role Phone Shari Castellano [facility] Primary Care Provider [phone] Source Comments PLEASE NOTE, if this patient [...] on file Insurance [employer] Care Teams Wound Care Rn Relationship Specialty Start Date End Date Shrai Castellano FNP [address] [place] [id number] PCP - General Internal Medicine 12/05/18
== END 2024-12-29 14:56 | disposition home or self-care (01) ==
PROVIDERS: PCP Physician Assistant; Visit Provider Physician Assistant
DX: H66.90 Otitis media, unspecified, unspecified ear (principal)

== ENCOUNTER → 2024-12-29 14:21 | Outpatient (BNVA) | payer OTHER, SELFPAY | PROVIDERS: PCP Physician Assistant; Visit Provider Physician Assistant | DX: H66.91 Otitis media, unspecified, right ear (principal) | CPT/HCPCS: 99212 ==